=== PATIENT | female | born 1990 | race Caucasian/White ===

== ENCOUNTER → 2017-11-05 | Outpatient (CLI) | payer BC ==
[2017-11-05 10:13] LABS: HEMATOCRIT 27.9 % (36.0-47.0); HEMOGLOBIN 9.7 g/dl (12.0-15.5); MEAN CORPUSCULAR HEMOGLOBIN 31.2 pg (27.0-33.0); MEAN CORPUSCULAR HGB CONC 34.8 g/dl (32.0-36.5); MEAN CORPUSCULAR VOLUME 89.7 fl (80.0-96.0); PLATELET COUNT, AUTOMATED 381 10^3/uL (150-450); RED BLOOD COUNT 3.11 10^6/uL (4.00-5.40); RED CELL DISTRIBUTION WIDTH 11.2 % (11.5-14.5); WHITE BLOOD COUNT 6.4 10^3/uL (4.0-10.0)
[2017-11-05 10:17] LABS: AMORPHOUS SEDIMENT SMALL (NEGATIVE); APPEARANCE, URINE CLOUDY (CLEAR); BACTERIA, URINE AUTO 3+ (NEGATIVE); BILIRUBIN, URINE AUTO NEGATIVE (NEGATIVE); BLOOD, URINE BLOOD NEGATIVE (NEGATIVE); COLOR, URINE YELLOW (YELLOW); GLUCOSE, URINE (UA) AUTO 3+ mg/dL (NEGATIVE); KETONE, URINE AUTO NEGATIVE (NEGATIVE); LEUKOCYTE ESTERASE, URINE AUTO 3+ (NEGATIVE); NITRITE, URINE AUTO POSITIVE (NEGATIVE); PROTEIN, URINE AUTO NEGATIVE (NEGATIVE); RBC, URINE AUTO 67 /HPF (0-3); SPECIFIC GRAVITY URINE AUTO 1.012 (1.002-1.035); SQUAMOUS EPITHELIAL CELL UR AU 0 /HPF (0-6); UROBILINOGEN, URINE AUTO 0.2 mg/dL (0.0-2.0); WBC, URINE AUTO 147 /HPF (0-3)
[2017-11-05 10:39] LABS: CONTROL LINE HCG INT CTR LINE PRESENT; HCG, SERUM QUALITATIVE NEGATIVE (NEGATIVE)
[2017-11-05 10:43] LABS: ALBUMIN 3.5 GM/DL (3.2-5.2); ALBUMIN/GLOBULIN RATIO 1.09 (1.00-1.93); ALKALINE PHOSPHATASE 80 U/L (45-117); ALT/SGPT 83 U/L (12-78); AMYLASE 118 U/L (25-115); ANION GAP 5 MEQ/L (8-16); AST/SGOT 26 U/L (7-37); BILIRUBIN,TOTAL 0.4 MG/DL (0.2-1.0); BLOOD UREA NITROGEN 34 MG/DL (7-18); CALCIUM LEVEL 10.4 MG/DL (8.5-10.1); CARBON DIOXIDE LEVEL 37 MEQ/L (21-32); CHLORIDE LEVEL 92 MEQ/L (98-107); CHOLESTEROL LEVEL 185 MG/DL (<200); CREATININE FOR GFR 1.99 MG/DL (0.55-1.30); FREE T4 1.08 NG/DL (0.76-1.46); GLUCOSE, FASTING 298 MG/DL (70-100); HDL CHOLESTEROL 68 MG/DL (>40); MAGNESIUM LEVEL 1.8 MG/DL (1.8-2.4); NON-HDL-C 117 MG/DL; PHOSPHORUS LEVEL 5.2 MG/DL (2.5-4.9); POTASSIUM SERUM 4.4 MEQ/L (3.5-5.1); SODIUM LEVEL 134 MEQ/L (136-145); TOTAL PROTEIN 6.7 GM/DL (6.4-8.2); TRIGLYCERIDES LEVEL 115 MG/DL (<150)
[2017-11-05 10:53] LABS: TOTAL 25(OH) VITAMIN D 28.6 NG/ML (30.0-100.0)
[2017-11-05 10:55] LABS: FREE T3 2.1 PG/ML (2.2-4.0)
[2017-11-11 09:11] LABS: SUMMARY SEE SEPARATE REPORT
== END ==
LOC: M LAB 09:31
DX: E86.0 Dehydration (principal)
CPT/HCPCS: 93005

== ENCOUNTER → 2018-01-17 | Outpatient (REF) | payer OTHER ==
[2018-01-17 12:02] LABS: HEMATOCRIT 26.4 % (36.0-47.0); HEMOGLOBIN 9.1 g/dl (12.0-15.5); MEAN CORPUSCULAR HEMOGLOBIN 31.9 pg (27.0-33.0); MEAN CORPUSCULAR HGB CONC 34.5 g/dl (32.0-36.5); MEAN CORPUSCULAR VOLUME 92.6 fl (80.0-96.0); PLATELET COUNT, AUTOMATED 406 10^3/uL (150-450); RED BLOOD COUNT 2.85 10^6/uL (4.00-5.40); RED CELL DISTRIBUTION WIDTH 12.4 % (11.5-14.5)
[2018-01-17 13:05] LABS: ALBUMIN 3.6 GM/DL (3.2-5.2); ALBUMIN/GLOBULIN RATIO 1.06 (1.00-1.93); ALKALINE PHOSPHATASE 83 U/L (45-117); ALT/SGPT 54 U/L (12-78); ANION GAP 10 MEQ/L (8-16); AST/SGOT 26 U/L (7-37); BILIRUBIN,TOTAL 0.3 MG/DL (0.2-1.0); BLOOD UREA NITROGEN 21 MG/DL (7-18); CALCIUM LEVEL 9.1 MG/DL (8.5-10.1); CARBON DIOXIDE LEVEL 33 MEQ/L (21-32); CHLORIDE LEVEL 93 MEQ/L (98-107); CREATININE FOR GFR 2.22 MG/DL (0.55-1.30); FERRITIN 47 NG/ML (8-252); GLOMERULAR FILTRATION RATE 28.2 (>60); GLUCOSE, FASTING 192 MG/DL (70-100); IRON (FE) 28 UG/DL (50-170); PERCENT SATURATION 9.2 % (13.2-45.0); POTASSIUM SERUM 4.7 MEQ/L (3.5-5.1); RHEUMATOID FACTOR QUANT 37.1 IU/ML (<15.0); SODIUM LEVEL 136 MEQ/L (136-145); TOTAL IRON BINDING CAPACITY 303 UG/DL (250-450)
[2018-01-17 13:15] LABS: CREATININE, URINE 44.2 MG/DL; MALB URINE SIEMENS 32.5 MG/L
[2018-01-17 13:18] LABS: MAU/CREAT RATIO 73.5 MCG/MG (0.0-30.0)
[2018-01-17 14:27] LABS: ESTIMATED AVERAGE GLUCOSE 352 MG/DL (60-110); HEMOGLOBIN A1c 13.9 %
[2018-01-18 15:36] LABS: ANTINUCLEAR ANTIBODIES DIRECT Negative (Negative)
== END ==
LOC: M SFHCPLAZ 09:39
DX: M06.9 Rheumatoid arthritis, unspecified (principal); D64.9 Anemia, unspecified; E10.65 Type 1 diabetes mellitus with hyperglycemia

== ENCOUNTER → 2018-02-03 | Outpatient (CLI) | payer OTHER | LOC: M RAD 09:56 | DX: N18.4 Chronic kidney disease, stage 4 (severe) (principal) | CPT/HCPCS: 76775 ==

== ENCOUNTER → 2018-02-21 | Outpatient (REF) | payer OTHER ==
[2018-02-21 15:38] LABS: ANION GAP 10 MEQ/L (8-16); BLOOD UREA NITROGEN 22 MG/DL (7-18); CALCIUM LEVEL 10.2 MG/DL (8.5-10.1); CARBON DIOXIDE LEVEL 35 MEQ/L (21-32); CHLORIDE LEVEL 92 MEQ/L (98-107); CREATININE FOR GFR 2.56 MG/DL (0.55-1.30); GLOMERULAR FILTRATION RATE 23.9 (>60); GLUCOSE, FASTING 267 MG/DL (70-100); POTASSIUM SERUM 4.1 MEQ/L (3.5-5.1); SODIUM LEVEL 137 MEQ/L (136-145)
[2018-02-23 00:06] LABS: DEAMIDATED GLIADIN ABS, IgA 4 units (0-19); DEAMIDATED GLIADIN ABS, IgG 2 units (0-19); ENDOMYSIAL ANTIBODY IgA Negative (Negative); IMMUNOGLOBULIN A 200 mg/dL (87-352); t-TRANSGLUTAMINASE(tTG) IgA <2 U/mL (0-3); t-TRANSGLUTAMINASE(tTG) IgG <2 U/mL (0-5)
== END ==
LOC: M SFHCPLAZ 09:52
DX: R19.7 Diarrhea, unspecified (principal)
CPT/HCPCS: 86255

== ENCOUNTER → 2018-02-21 | Outpatient (REF) | payer OTHER | LOC: M LAB REF 02-22 11:02 | DX: R19.7 Diarrhea, unspecified (principal) | CPT/HCPCS: 87507 ==

== ENCOUNTER → 2018-03-05 | Outpatient (REF) | payer OTHER ==
[2018-03-05 17:06] LABS: C REACTIVE PROTEIN QUANTITATIV < 0.30 MG/DL (0.00-0.30)
[2018-03-05 17:23] LABS: ERYTHROCYTE SEDIMENTATION RATE 81 mm/hr (0-20)
[2018-03-07 11:39] LABS: HEPATITIS B CORE ANTIBODY IGG Negative (Negative)
[2018-03-07 12:51] LABS: HEPATITIS C VIRUS ABY INDEX 0.1 INDEX (<0.8)
[2018-03-07 12:51] LABS: HEPATITIS B SURFACE ANTIBODY POSITIVE (POSITIVE); HEPATITIS B SURFACE ANTIGEN NEGATIVE (NEGATIVE)
[2018-03-09 15:38] LABS: G6PD2 2.84 x10E6/uL (3.77-5.28); G6PD3 302 (146-376); QuantiFERON-TB Gold Plus Negative (Negative)
== END ==
LOC: M SFHCLERA 13:44
DX: M05.79 Rheumatoid arthritis with rheumatoid factor of multiple sites without organ or systems involvement (principal); M06.9 Rheumatoid arthritis, unspecified
CPT/HCPCS: 86706

== ENCOUNTER → 2018-03-05 | Outpatient (CLI) | payer OTHER | LOC: M LRY 13:56 | DX: M06.9 Rheumatoid arthritis, unspecified (principal); M85.841 Other specified disorders of bone density and structure, right hand; M85.842 Other specified disorders of bone density and structure, left hand | CPT/HCPCS: 73130 ==

== ENCOUNTER → 2018-05-09 | Outpatient (REF) | payer OTHER ==
[~2018-05-09] MED LIST: ADME100I2 SC; AUGM500T34 PO; BASA100I SC; IRON325T7 PO; MULTCAP PO; RANI150T PO; SULF500T2 PO; TYLE325T5 PO
[2018-05-09 18:05] LABS: BASO # 0.1 10^3/uL (0.0-0.2); BASO % 0.9 % (0.0-1.0); EOS # 0.4 10^3/uL (0.0-0.50); EOS % 5.7 % (0.0-3.0); HEMATOCRIT 25.2 % (36.0-47.0); HEMOGLOBIN 8.7 g/dl (12.0-15.5); LYMPH # 2.6 10^3/uL (1.5-6.5); LYMPH % 36.9 % (24.0-44.0); MEAN CORPUSCULAR HEMOGLOBIN 31.3 pg (27.0-33.0); MEAN CORPUSCULAR HGB CONC 34.5 g/dl (32.0-36.5); MEAN CORPUSCULAR VOLUME 90.6 fl (80.0-96.0); MONO # 0.5 10^3/uL (0.0-0.8); NEUTROPHILS # 3.5 10^3/uL (1.8-7.7); NEUTROPHILS % 49.2 % (36.0-66.0); PLATELET COUNT, AUTOMATED 488 10^3/uL (150-450); RED BLOOD COUNT 2.78 10^6/uL (4.00-5.40)
[2018-05-09 18:07] LABS: HCG, SERUM QUALITATIVE NEGATIVE (NEGATIVE)
[2018-05-09 18:15] LABS: ALBUMIN 3.7 GM/DL (3.2-5.2); ALT/SGPT 39 U/L (12-78); BILIRUBIN,TOTAL 0.3 MG/DL (0.2-1.0); BLOOD UREA NITROGEN 22 MG/DL (7-18); C REACTIVE PROTEIN QUANTITATIV < 0.30 MG/DL (0.00-0.30); CALCIUM LEVEL 9.3 MG/DL (8.5-10.1); CARBON DIOXIDE LEVEL 35 MEQ/L (21-32); CHLORIDE LEVEL 93 MEQ/L (98-107); CHOLESTEROL LEVEL 175 MG/DL (<200); CHOLESTEROL RISK RATIO 2.302 (<5); COMPLEMENT C3 101 MG/DL (90-180); COMPLEMENT C4 24 MG/DL (10-40); CREATININE FOR GFR 3.32 MG/DL (0.55-1.30); GLOMERULAR FILTRATION RATE 17.7 (>60); GLUCOSE, FASTING 162 MG/DL (70-100); HDL CHOLESTEROL 76 MG/DL (>40); IMMUNOGLOBULIN G 888 MG/DL (681-1648); IMMUNOGLOBULIN M 62.6 MG/DL (40-230); LDL CHOLESTEROL 75 MG/DL (<100); MAGNESIUM LEVEL 2.6 MG/DL (1.8-2.4); NON-HDL-C 99 MG/DL; PHOSPHORUS LEVEL 2.8 MG/DL (2.5-4.9); POTASSIUM SERUM 3.7 MEQ/L (3.5-5.1); SODIUM LEVEL 136 MEQ/L (136-145); TOTAL PROTEIN 7.1 GM/DL (6.4-8.2); TRIGLYCERIDES LEVEL 118 MG/DL (<150)
[2018-05-09 18:56] LABS: HIV 1&2 SCREEN CENTAUR NEGATIVE (NEGATIVE)
[2018-05-13 08:06] LABS: CREATININE, URINE 55.9 mg/dL (20.0-300.0); CYCLIC CITRULLINATED PEPTIDE 18 units (0-19); IMMUNOGLOBULIN D <1.34 mg/dL (<14.11)
== END ==
LOC: M SFHCPLAZ 14:55
PROVIDERS: ATTEND Nurse Practitioner Family
DX: F50.2 Bulimia nervosa (principal)

== ENCOUNTER 2018-05-13 10:48 | Observation (INO) | payer OTHER ==
[~2018-05-13] VITALS: Ht 152.4 cm; Wt 47.3 kg
[~2018-05-13 10:48] MED LIST changes: -AUGM500T34 PO; -RANI150T PO; -TYLE325T5 PO
[2018-05-13] MEDS ORDERED: NS 500 ML IV ONE (11:15)
[2018-05-13] MEDS ORDERED: RANI150T PO (11:51)
[2018-05-13 12:00] LABS: BASO # 0.1 10^3/uL (0.0-0.2); BASO % 0.8 % (0.0-1.0); EOS # 0.6 10^3/uL (0.0-0.50); EOS % 6.9 % (0.0-3.0); HEMOGLOBIN 10.1 g/dl (12.0-15.5); LYMPH % 32.5 % (24.0-44.0); MEAN CORPUSCULAR HEMOGLOBIN 30.9 pg (27.0-33.0); MEAN CORPUSCULAR HGB CONC 34.8 g/dl (32.0-36.5); MEAN CORPUSCULAR VOLUME 88.7 fl (80.0-96.0); MONO # 0.6 10^3/uL (0.0-0.8); MONO % 6.4 % (0.0-5.0); NEUTROPHILS # 4.9 10^3/uL (1.8-7.7); NEUTROPHILS % 53.1 % (36.0-66.0); PLATELET COUNT, AUTOMATED 460 10^3/uL (150-450); RED BLOOD COUNT 3.27 10^6/uL (4.00-5.40); WHITE BLOOD COUNT 9.2 10^3/uL (4.0-10.0)
--- NOTE | 2018-05-13 12:19 | REP ---
Portable chest: Single view. History: Renal failure. Comparison study: No comparison study. Findings: EKG monitoring electrodes overlie the chest. Lungs are well inflated and clear. Pleural angles are sharp. Cardiomediastinal silhouette and bony thorax are unremarkable. Impression: No active disease. Electronically Signed by Juliano Brown MD 05/13/2018 12:10 P
[2018-05-13 12:34] LABS: ALT/SGPT 41 U/L (12-78); AMYLASE 114 U/L (25-115); BILIRUBIN,DIRECT 0.1 MG/DL (0.0-0.2); BILIRUBIN,TOTAL 0.3 MG/DL (0.2-1.0); BLOOD UREA NITROGEN 26 MG/DL (7-18); CALCIUM LEVEL 11.2 MG/DL (8.5-10.1); CARBON DIOXIDE LEVEL 33 MEQ/L (21-32); CHLORIDE LEVEL 91 MEQ/L (98-107); CK-MB VALUE MASS < 1.0 NG/ML (<3.6); CPK CREATINE PHOSPHOKINASE 43 U/L (26-192); CREATININE FOR GFR 3.12 MG/DL (0.55-1.30); GLUCOSE, FASTING 347 MG/DL (70-100); LIPASE 139 U/L (73-393); MB/CK RELATIVE INDEX 2.33 (< OR =4); PHOSPHORUS LEVEL 3.1 MG/DL (2.5-4.9); POTASSIUM SERUM 3.8 MEQ/L (3.5-5.1); SODIUM LEVEL 135 MEQ/L (136-145); TOTAL PROTEIN 8.1 GM/DL (6.4-8.2); TROPONIN I < 0.02 NG/ML (< 0.10)
[2018-05-13 12:37] LABS: INR 0.89; PROTHROMBIN TIME 12.1 SECONDS (12.1-14.4)
[2018-05-13 12:38] LABS: PARTIAL THROMBOPLASTIN TIME 25.6 SECONDS (25.4-37.6)
[2018-05-13] MEDS ORDERED: cefTRIAXone SOD 1 GM in D5W MINI-BAG PLUS 50 ML IV ONE (13:15)
[2018-05-13] MEDS ORDERED: TYLE325T5 PO (13:21)
[2018-05-13] MEDS ORDERED: GLUCOSE 4 GM CHEW TABLET PO PRN (14:15)
[2018-05-13] MEDS ORDERED: DEXTROSE 50% 50 ML SYRINGE IV PRN (14:15)
[2018-05-13] MEDS ORDERED: GLUCAGON FOR INJ 1 MG VIAL (J1610) SC PRN (14:15)
[2018-05-13 14:20] LABS: CREATININE,RANDOM URINE 26.1 MG/DL
[2018-05-13 14:30] VITALS: BP 140/97
[2018-05-13] MEDS: NS 1,000 ML IV SCH ×2 (14:47→21:14)
[2018-05-13 14:55] LABS: TOTAL PROTEIN,RANDOM URINE 38.8 MG/DL (0.0-12.0)
--- NOTE | 2018-05-13 15:38 | REP ---
Urinary tract sonogram: History: Renal failure. Comparison: Comparison sonography February 03, 2018 showed no abnormality. Findings: Scanning at the level of the urinary bladder shows slight thickening of the bladder wall and some mild cellular debris in the bladder. Renal cortical echogenicity pattern is normal bilaterally and contours are smooth. There is no evidence of hydronephrosis, cyst, mass, or calculus in either kidney. The right kidney measures 12.2 x 5.9 x 4.5 cm. Left renal dimensions are 10.8 x 5.0 x 6.4 cm. Impression: Slight bladder wall thickening. Otherwise negative urinary tract sonography. Electronically Signed by Juliano Brown MD 05/13/2018 01:55 P
--- NOTE | 2018-05-13 17:07 | HPE ---
DATE OF ADMISSION: 05/13/2018 27-year-old female with past medical history of bulimia nervosa, rheumatoid arthritis, type 1 diabetes, chronic kidney disease (CKD) IIIB, who presents to the emergency room from her primary medical doctor's office for abnormal labs, apparently the creatinine was elevated, upon coming to the emergency room (ER) the patient was found to have a creatinine of 3.1, which is above her baseline, she normally runs around 2.2. She is followed by nephrology as an outpatient. He is also incidentally found to have mild hypercalcemia, which she was started on IV hydration, and also a urinary tract infection (UTI), which she does not have any symptoms of. She denies any urgency, frequency, or dysuria. She has no subjective bleeding, fever, aches, or chills. She does have mild generalized abdominal pain, but again no nausea or vomiting, and her bulimic episodes have not changed according to her. She was started on IV Rocephin 1 gram and will be admitted for further management. Again, past medical history of CKD IIIB, history of rheumatoid arthritis, history of type 1 diabetes, history of bulimia nervosa, history of herpes simplex, anemia, vitamin D deficiency. ALLERGIES: No known drug allergies. FAMILY HISTORY: Noncontributory. SOCIAL HISTORY: She denies tobacco or alcohol, but does occasionally smoke marijuana. MEDICATIONS: She takes at home are as follows: - Tylenol as needed - Admelog SoloStar 1 unit/35 carbohydrates - Basaglar KwikPen 12 units subcutaneous daily - multivitamin one tablet orally daily - high potency iron 325 mg orally daily - ranitidine 150 mg orally daily - sulfasalazine 500 mg orally twice daily REVIEW OF SYSTEMS: Negative for all ten major systems except what is mentioned in history of present illness (HPI). VITAL SIGNS: Blood pressure is 134/97, pulse 97, temperature 98.4, oxygen saturation 94% on room air. HEAD: Atraumatic, normocephalic. NECK: Supple, no jugular venous distention (JVD). LUNGS: Clear to auscultation. S1, S2 audible. ABDOMEN: Soft, positive bowel sounds. NEUROLOGIC EXAMINATION: Patient awake, alert, oriented times three. LABORATORY DATA: WBC 9.2, hemoglobin 10.1, hematocrit 29, platelets are 460,000, sodium 135, potassium 3.8, chloride 91, CO2 33, anion gap is 11, BUN is 26, creatinine is 3.12, lactic acid 3.5, calcium 11.2, magnesium 2.3, troponin is less than 0.02, lipase is 139. Urinalysis is positive for UTI. Renal ultrasound was negative for any obstruction or hydronephrosis. Chest x-ray showed no active disease. IMPRESSION: 1. Acute kidney injury (SAYRA). 2. Urinary tract infection (UTI). 3. Hypercalcemia. PLAN: Patient is to be admitted to medical/surgical floor. I believe the acute kidney injury (SAYRA) is secondary to dehydration. Patient is bulimic and I feel this is likely secondary to that, but we can also say that her urinary tract infection (UTI) may have contributed to her decreased appetite as well. She is also hypercalcemic of unknown etiology and at that level it could also manifest as poor appetite, so I feel this combination is the cause of her acute kidney injury (SAYRA) on chronic kidney disease (CKD). So, we will be hydrating her, and that is at 125 mL/hour. We will monitor BUN and creatinine trends. As far as urinary tract infection (UTI) is concerned, cultures have been sent out, will follow with cultures and sensitivities, and in meantime continue Rocephin at 1 gram daily. As far as the hypercalcemia is concerned, will send intact PTH, 25-hydroxyvitamin D levels, and 1,25-dihydroxyvitamin D levels, hydrate her, and follow her calcium trends. Nephrology also has been consulted, will be awaiting their recommendations.
--- NOTE | 2018-05-13 20:06 | ECGEPIP ---
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
[2018-05-13] MEDS ORDERED: HumaLOG INSULIN (NovoLOG) PER UNIT SC SCH (21:00)
[2018-05-13] MEDS: sulfaSALAzine 500 MG TABEC PO SCH (21:14)
[2018-05-13 22:00] VITALS: BP 135/91
[2018-05-13 22:35] LABS: CALCIUM LEVEL 9.1 MG/DL (8.5-10.1); CREATININE FOR GFR 2.65 MG/DL (0.55-1.30); PHOSPHORUS LEVEL 2.6 MG/DL (2.5-4.9); POTASSIUM SERUM 3.5 MEQ/L (3.5-5.1)
[2018-05-13] MEDS: ACETAMINOPHEN TAB 650MG DOSE (2X325MG) PO PRN (23:20)
[2018-05-14] MEDS: NS 1,000 ML IV SCH ×2 (04:55→16:32)
[2018-05-14 06:00] VITALS: BP 125/83
[2018-05-14 06:11] LABS: BASO % 0.6 % (0.0-1.0); EOS # 0.5 10^3/uL (0.0-0.50); EOS % 7.9 % (0.0-3.0); HEMATOCRIT 22.2 % (36.0-47.0); LYMPH # 2.7 10^3/uL (1.5-6.5); LYMPH % 43.2 % (24.0-44.0); MEAN CORPUSCULAR HGB CONC 33.8 g/dl (32.0-36.5); MEAN CORPUSCULAR VOLUME 91.7 fl (80.0-96.0); MONO # 0.4 10^3/uL (0.0-0.8); MONO % 5.7 % (0.0-5.0); NEUTROPHILS # 2.6 10^3/uL (1.8-7.7); NEUTROPHILS % 42.4 % (36.0-66.0); RED BLOOD COUNT 2.42 10^6/uL (4.00-5.40); WHITE BLOOD COUNT 6.2 10^3/uL (4.0-10.0)
[2018-05-14 06:21] LABS: HEMOGLOBIN 7.5 g/dl (12.0-15.5); PLATELET COUNT, AUTOMATED 324 10^3/uL (150-450)
--- NOTE | 2018-05-14 08:08 | CR ---
DATE OF CONSULTATION: 05/13/2018 REQUESTING PHYSICIAN: Dr. Alondra Vanegas. CONSULTING PHYSICIAN: Dr. Cotto. REASON FOR CONSULTATION: Management of acute renal failure. CHIEF COMPLAINT: Patient was sent from the primary care office because of abnormal labs. HISTORY OF PRESENT ILLNESS: Rowena Shah is a 27-year-old female with past medical history of chronic kidney disease stage III with past baseline creatinine of around 2.2, history of anorexia nervosa and bulimia, rheumatoid arthritis, diabetes mellitus type 1. She follows up with Dr. Garvey as outpatient in nephrology clinic. She recently got her labs done at primary care office. She was found to have acute renal failure with creatinine more than 3. She was sent to the emergency room today for further evaluation and management. Labs done in the emergency room showed she had a creatinine of 3.1. She was also in metabolic alkalosis. Patient was admitted under the hospitalist service. Nephrology service was called for further help in the management of acute renal failure. I saw and evaluated the patient today evening at the bedside. Her grandfather was present at the bedside and patient reports that because of bulimia, she purges everyday. She denies using laxatives at this point. PAST MEDICAL HISTORY: Chronic kidney disease stage III. History of rheumatoid arthritis, takes sulfasalazine. Diabetes mellitus type 1 since 17 years of age. History of anemia and anorexia nervosa and bulimia. PAST SURGICAL HISTORY: She denies any surgery but she had a colonoscopy done in the past because of diarrhea. ALLERGIES: No known drug allergies. FAMILY HISTORY: No significant family history of end stage renal disease requiring hemodialysis. SOCIAL HISTORY: She denies any elicit drug abuse, smoking or alcohol abuse. Patient is living with her grandparents. Her own parents live in [place]. REVIEW OF SYSTEMS: Constitutional: Patient reports feeling weak and tired. Eyes: She denies any blurry vision, double vision. ENT: She denies any dysphagia, odynophagia. Cardiovascular: She denies any chest pain or palpitations. Respiratory: She denies any shortness of breath. GI: She reports anorexia nervosa and bulimia. Genitourinary: She denies any dysuria or hematuria. Musculoskeletal: She denies any muscle aches and pains. Skin: She denies any rashes or ulcers. Endocrine: She reports history of diabetes mellitus type 1. Hematological/oncological: She denies any easy bleeding or bruising. Psych: She reports history of bulimia and anorexia nervosa. All other review of system is negative. PHYSICAL EXAMINATION: General: Patient is awake, alert, oriented times three. Lying in bed. Has a flat affect. Vital signs: Temperature is 98.9 degrees Fahrenheit, blood pressure 135/91, pulse 98, respiratory rate 18, saturating 100% on room air. Head and neck exam: Extraocular muscles intact. Pupils equally round and reactive to light. Mucous membranes are moist. Neck is supple. There is no jugular venous distention. Cardiovascular: S1, S2. Regular rate. No murmur, rubs or gallop. Respiratory: Chest is clear to auscultation bilaterally. Bilateral equal air entry. No rales or rhonchi. Abdomen is soft, positive bowel sounds, nontender, no organomegaly. Musculoskeletal: No clubbing or cyanosis. Pulses are 2+. CORSETS SALESPERSON: No focal deficit. Power is 5/5 in all extremities. Skin: No rashes or ulcers. LAB REVIEW: CBC showed WBC 9.2, hemoglobin 10.1, platelets are 460. Urinalysis showed it was cloudy with 1+ protein, 3+ glucose, 3+ leukocyte esterase, too numerous to count WBCs. Urine random protein is 38. Random creatinine is 26. BMP on arrival showed sodium 135, potassium 3.8, chloride 91, bicarbonate 33, BUN is 26, creatinine is 3.1. Glucose of 347. Lactic acid was 3.5. Repeat lactic acid is 0.8. Calcium is 11.2. Albumin 4. Repeat BMP done in the evening showed sodium 134, potassium 3.5, chloride 95, bicarbonate 33, BUN 22, creatinine 2.6. Calcium 9.1 and phosphorus 2.6. Microbiology: Urine cultures are pending. IMAGING: Renal ultrasound was done. It showed slight bladder wall thickening. Negative urinary tract ultrasound. Right kidney was 12.2 cm. Left kidney was 10.8 cm. HOME MEDICATIONS: Patient's home medications include: - Tylenol as needed - Admelog SoloStar pen according to sliding scale - Basaglar units subcutaneous daily - iron tablet one tablet daily - multivitamin one tablet daily - ranitidine one tablet daily - sulfasalazine 500 mg by mouth twice a day - famotidine CURRENT INPATIENT MEDICATIONS: Patient's inpatient medications include: - ceftriaxone 1 gram IV daily - normal saline 125 mg daily - She was given 500 mL normal saline bolus. - She is on Tylenol as needed. - famotidine 50 mg daily - insulin Levemir 12 units subcutaneous daily and insulin sliding scale - multivitamin one tablet daily - sulfasalazine 500 mg by mouth twice a day ASSESSMENT: 27-year-old female with anorexia nervosa and bulimia, diabetes mellitus type 1, chronic kidney disease stage III at baseline, admitted this time with acute renal failure superimposed on chronic kidney disease, urinary tract infection and hyperglycemia. PLAN: 1. Acute renal failure superimposed on chronic kidney disease stage III most likely secondary to dehydration, volume depletion and urinary tract infection. Patient has already been started on IV fluid hydration. She is making good amount of urine and creatinine is improving. Continue the IV fluid hydration at this point. 2. Urinary tract infection. Patient has already been started on IV ceftriaxone. Cultures are still pending. 3. Metabolic alkalosis. It is most likely secondary to bulimia and dehydration. Continue IV fluid hydration at this point. 4. Hypocalcemia. Calcium level is improving with IV fluid hydration. PTH level is pending. 5. Anemia. Hemoglobin is 10.1. She is already on oral iron tablets. Continue the home dose of oral iron. 6. Diabetes mellitus type 1. Continue insulin sliding scale and long acting insulin. Glucose levels are controlled. 7. Rheumatoid arthritis. Okay to continue sulfasalazine at this point. Thank you for involving me in the case of this patient. I shall be happy to follow the patient along with you tomorrow morning. [facility]
[2018-05-14 08:40] LABS: CALCIUM LEVEL 8.7 MG/DL (8.5-10.1); CREATININE FOR GFR 2.63 MG/DL (0.55-1.30); GLOMERULAR FILTRATION RATE 23.2 (>60); MAGNESIUM LEVEL 2.1 MG/DL (1.8-2.4); PERCENT SATURATION 17.3 % (13.2-45.0); POTASSIUM SERUM 4.4 MEQ/L (3.5-5.1); THYROID STIMULATING HORMONE 0.802 uIU/ML (0.358-3.740)
[2018-05-14] MEDS: HumaLOG INSULIN (NovoLOG) PER UNIT SC SCH ×4 (08:50→17:30)
[2018-05-14] MEDS: LEVEMIR (INSULIN DETEMIR) 1 UNITS/0.01ML SC SCH (08:51)
[2018-05-14] MEDS: MULTIVITAMINS/MINERALS THERAP 1 TAB PO SCH (08:51)
[2018-05-14] MEDS: FAMOTIDINE 20 MG TAB PO SCH (08:51)
[2018-05-14] MEDS: sulfaSALAzine 500 MG TABEC PO SCH ×2 (08:51→20:23)
[2018-05-14] MEDS ORDERED: IRON SUCROSE 25 MG in NS 50 ML IV ONE ×4 (12:00)
[2018-05-14] MEDS ORDERED: HumaLOG INSULIN (NovoLOG) PER UNIT SC ONE ×2 (12:00→14:15)
[2018-05-14] MEDS: ACETAMINOPHEN TAB 650MG DOSE (2X325MG) PO PRN ×2 (12:32→20:25)
[2018-05-14] MEDS ORDERED: NS IV ONE (13:00)
[2018-05-14] MEDS ORDERED: IRON SUCROSE IV ONE (13:00)
[2018-05-14] MEDS ORDERED: cefTRIAXone SOD 1 GM in D5W MINI-BAG PLUS 50 ML IV SCH (13:00)
[2018-05-14 13:17] LABS: HEMATOCRIT 23.8 % (36.0-47.0); MEAN CORPUSCULAR HEMOGLOBIN 30.7 pg (27.0-33.0); MEAN CORPUSCULAR HGB CONC 33.6 g/dl (32.0-36.5); MEAN CORPUSCULAR VOLUME 91.2 fl (80.0-96.0); PLATELET COUNT, AUTOMATED 377 10^3/uL (150-450); RED BLOOD COUNT 2.61 10^6/uL (4.00-5.40); WHITE BLOOD COUNT 6.8 10^3/uL (4.0-10.0)
[2018-05-14 14:00] VITALS: BP 140/90
--- NOTE | 2018-05-14 16:00 | IPN ---
DATE: 05/14/2018 SUBJECTIVE: Patient is seen and examined in the room with her grandfather and grandmother. Patient was frustrated that she needed to come to the hospital and she does not like the situation. According to patient, patient has an appointment with the bulimia clinic in [place] in a few days. OBJECTIVE: VITAL SIGNS: Temperature is 97.5, pulse is 85, respiratory rate 18, blood pressure 125/83, pulse oximetry is 98% in room air. GENERAL: No sign of acute distress. Patient is alert and awake. HEENT: Normocephalic, atraumatic. Extraocular motor grossly intact. CARDIOVASCULAR: Positive S1, S2, regular rate. LUNGS: Clear to auscultation bilaterally. ABDOMEN: Soft, nontender. Bowel sounds present. EXTREMITIES: No edema. LABORATORY DATA: WBC is 6.8, hemoglobin 8, hematocrit 23.8, platelet count is 377. Sodium is 138, potassium 4.4, chloride 101, carbon dioxide 32, BUN 33, creatinine is 2.63, GFR is 23.2, fasting glucose 420, calcium is 8.7, magnesium 2.1, iron is 42, TIBC is 243, ferritin is 52, lactate dehydrogenase 108. ASSESSMENT AND PLAN: 1. Acute renal failure, on chronic kidney disease (CKD) stage III. Clinically, patient shows some signs of dehydration. Patient also has a urinary tract infection. Patient is on IV support. Followup with urine culture. Nephrology consulted, appreciate their assistance. 2. Type 1 diabetes. A long discussion occurred with patient regarding her insulin regimen. Patient is currently on consistent-carbohydrate diet. Patient will be on Levemir 12 units before meals and at bedtime. We are supplementing patient's regimen. Per patient, patient years ago was under better control. We will also try to contact [facility] regarding patient's home insulin recommendations. 3. Rheumatoid arthritis. Patient is on sulfasalazine. 4. History of bulimia nervosa. Patient has an appointment with a bulimia clinic in a few days in [place]. 5. Anemia. We will continue with anemia workup. Followup with stool occult. Patient denies any source of active bleeding. 6. Urinary tract infection. Followup with urine culture, on IV antibiotics. 7. Deep vein thrombosis (DVT) prophylaxis. On thromboembolic-deterrent stockings (TEDS), compression.
[2018-05-14 17:36] LABS: FOLATE 11.2 NG/ML (>5.4)
[2018-05-14] MEDS ORDERED: HumaLOG INSULIN (NovoLOG) PER UNIT SC SCH (21:00)
[2018-05-14 22:00] VITALS: BP 138/72
[2018-05-15] MEDS: ACETAMINOPHEN TAB 650MG DOSE (2X325MG) PO PRN ×2 (03:12→09:23)
[2018-05-15 06:00] VITALS: BP 135/92
[2018-05-15 06:43] LABS: HEMATOCRIT 20.3 % (36.0-47.0); MEAN CORPUSCULAR HEMOGLOBIN 31.3 pg (27.0-33.0); MEAN CORPUSCULAR HGB CONC 34.5 g/dl (32.0-36.5); MEAN CORPUSCULAR VOLUME 90.6 fl (80.0-96.0); PLATELET COUNT, AUTOMATED 307 10^3/uL (150-450); RED BLOOD COUNT 2.24 10^6/uL (4.00-5.40)
[2018-05-15 07:11] LABS: CALCIUM LEVEL 8.5 MG/DL (8.5-10.1); CREATININE FOR GFR 2.3 MG/DL (0.55-1.30); GLOMERULAR FILTRATION RATE 27.1 (>60); MAGNESIUM LEVEL 2.2 MG/DL (1.8-2.4); POTASSIUM SERUM 4.3 MEQ/L (3.5-5.1)
[2018-05-15] MEDS: HumaLOG INSULIN (NovoLOG) PER UNIT SC SCH ×2 (07:40→12:29)
[2018-05-15] MEDS: FAMOTIDINE 20 MG TAB PO SCH (09:00)
[2018-05-15] MEDS: MULTIVITAMINS/MINERALS THERAP 1 TAB PO SCH (09:00)
[2018-05-15] MEDS: sulfaSALAzine 500 MG TABEC PO SCH (09:00)
[2018-05-15] MEDS ORDERED: IRON SUCROSE 100MG 5ML VIAL (J1756 PER 1MG) IV SCH (09:00)
[2018-05-15] MEDS: LEVEMIR (INSULIN DETEMIR) 1 UNITS/0.01ML SC SCH (09:00)
[2018-05-15] MEDS ORDERED: AUGMENTIN 500 MG TAB PO SCH (09:00)
--- NOTE | 2018-05-15 09:41 | IPN ---
DATE OF SERVICE: 05/14/2018 SUBJECTIVE: The patient was seen and examined at the bedside today morning. The patient is afebrile, hemodynamically stable. She reports that she is feeling better today as compared with yesterday. She continues to be on intravenous (IV) fluids. Renal function is improving. Creatinine is down to 2.6 today. She has a good urine output. Her hemoglobin has dropped to 7.7. Her grandparents were also present at the bedside. OBJECTIVE: Vital signs: Temperature is 97.5 degrees Fahrenheit, blood pressure 125/83, pulse is 85, respiratory rate of 18, saturating 98% on room air. Intake and output: Urine output recorded is 1.2 liters yesterday, 3.7 liters so far today since overnight. Weight in the bed scale is 47.3 kg. PHYSICAL EXAMINATION: General: The patient is awake, alert, oriented times three. Lying in bed. Weak and cachectic. No apparent distress. Head and neck examination: Extraocular muscles intact. Pupils equally round and reactive to light. Mucous membranes are moist. Neck is supple. There is no jugular venous distention (JVD). Cardiovascular: S1, S2. Regular rate. No murmur, rub, and gallop. Respiratory: Chest is clear to auscultation bilaterally. Bilateral equal air entry. No rales or rhonchi. Abdomen is soft, positive bowel sounds, nontender, no organomegaly. Musculoskeletal: No clubbing or cyanosis. The patient has multiple deformities in the fingers secondary to rheumatoid arthritis.. Central nervous system (PLASMA SPECIALIST): No focal deficit. Power is 5/5 in all extremities. Skin: No rashes or ulcers. LABORATORY REVIEW: Complete blood count (CBC) showed a WBC of 6.8, a repeat hemoglobin is 8.1, hemoglobin early in the morning was 7.5, platelets are 377. Basic metabolic profile (BMP) showed sodium 138, potassium 4.4, chloride 101, bicarbonate 32, BUN 23, creatinine is 2.6, glucose level 420, calcium 8.7, iron is 42, transferrin saturation 17.3, ferritin is 52. MICROBIOLOGY: Cultures are negative so far. CURRENT INPATIENT MEDICATIONS: The patient's medications were all reviewed by me. She continues to be on intravenous (IV) ceftriaxone. I have started the patient on IV Venofer because of iron deficiency. I have decreased the IV fluid rate of this patient to 60 mL/h. No other change in the medications today as compared with yesterday. ASSESSMENT AND PLAN: 1. Acute kidney injury superimposed on chronic kidney disease stage III. It was secondary to dehydration and volume depletion. The patient is on IV fluid hydration. Her urine output is improving. Creatinine is trending down. Electrolytes are improving. The patient has a body mass index (BMI) of 20.4, and she weighs only 47 kg. I have decreased the IV fluid rate to 60 mL only. Continue normal saline at 60 mL/h. 2. Urinary tract infection. Continue current dose of ceftriaxone. Cultures are still pending. 3. Iron-deficiency anemia. I have started the patient on IV Venofer 400 mg IV daily times two doses. 4. Hyponatremia. The patient had hypovolemic hyponatremia. Sodium is nicely improved to 138 today. 5. Metabolic alkalosis. It was secondary to dehydration, volume depletion, and bulimia nervosa, and purging. Bicarbonate level is improving with IV fluid hydration. 6. Diabetes mellitus type 1. The patient is currently on Levemir and insulin sliding scale. Dose adjustment is as per primary team. 7. Rheumatoid arthritis. Continue current dose of sulfasalazine at this point.
[2018-05-15] MEDS ORDERED: IRON SUCROSE 200 MG in NS 200 ML IV ONE (12:00)
[2018-05-15] MEDS ORDERED: AUGMENTIN 875 MG TAB PO SCH (12:30)
[2018-05-15] MEDS ORDERED: AUGM500T34 PO (12:34)
[2018-05-15 14:00] VITALS: BP 136/93
--- NOTE | 2018-05-15 21:20 | IPN ---
DATE: 05/15/2018 SUBJECTIVE: Patient was seen and examined at the bedside. She is afebrile, hemodynamically stable. Her renal function continues to improve. Creatinine is down to 2.3. Her hemoglobin has dropped to 7 today. She has a very good urine output, and patient today is requesting to go back home now. OBJECTIVE: Vital signs: Temperature is 98.1 degrees Fahrenheit, blood pressure 135/92, pulse is 61, respiratory rate of 18, saturating 97% on room air. Intake and output: Urine output recorded is 3.7 liters yesterday, 1.8 liters so far today. Weight in the bed scale is not available. PHYSICAL EXAMINATION: GENERAL: Patient is awake, alert, oriented times three, sitting up in the bed. No apparent distress. HEAD AND NECK: Patient appears pale and weak. Otherwise mucous membranes are moist. Neck is supple. There is no jugular venous distention (JVD). CARDIOVASCULAR: S1, S2, regular rate. No murmur, rub, or gallop. RESPIRATORY: Chest is clear to auscultation bilaterally. Bilateral equal air entry. No rales or rhonchi. ABDOMEN: Soft. Positive bowel sounds. Nontender. No organomegaly. MUSCULOSKELETAL: No clubbing or cyanosis. Pulses are 2+. She has deformity of the hand, fingers because of rheumatoid arthritis. CENTRAL NERVOUS SYSTEM: No focal deficit. Power is 5/5 in all extremities. SKIN: No rashes or ulcers. LABORATORY REVIEW: CBC showed a WBC 6, hemoglobin 7, platelets are 307. A BMP showed sodium 141, potassium 4.3, chloride 108, bicarbonate 29, BUN 18, creatinine is 2.3, calcium 8.5, magnesium is 2.2. Microbiology: Urine culture done on admission is growing Enterococcus faecalis. CURRENT INPATIENT MEDICATIONS: Patient's medications were all reviewed by me. She continues to be intravenous (IV) ceftriaxone. IV fluids have been stopped today. No other change in the medications today as compared with yesterday. ASSESSMENT AND PLAN: 1. Acute kidney injury superimposed on chronic kidney disease, stage III. It was secondary to volume depletion and dehydration. She got IV fluid hydration. Her creatinine is improving back to her baseline. Her baseline creatinine is around 2.2. 2. Urinary tract infection. She is growing Enterococcus faecalis. She is currently on ceftriaxone. She should be discharged home on oral quinolone. 3. Iron deficiency anemia. Her hemoglobin has further dropped to 7. She got IV Venofer, but she is going to get packed red blood cells (PRBC) transfusion before she goes home. 4. Diabetes mellitus, type 1. Patient is on insulin sliding scale and Levemir. She can restart her home dose according to [facility] when she goes home. 5. Rheumatoid arthritis. Okay to continue current dose of sulfasalazine. DISPOSITION: It is okay to discharge the patient from nephrology standpoint after blood transfusion today.
--- NOTE | 2018-05-17 00:23 | DSES ---
DATE OF ADMISSION: 05/13/2018 DATE OF DISCHARGE: 05/15/2018 CONSULTANTS: Nephrology. PRIMARY CARE PROVIDER: Dorothy Miller DISCHARGE DIAGNOSES: 1. Acute renal failure on chronic kidney disease stage III. 2. Type 1 diabetes. 3. Rheumatoid arthritis. 4. History of bulimia nervosa. 5. Anemia. 6. Urinary tract infection. HOSPITALIZATION COURSE: The patient is a 27-year-old female, sent into [facility] from primary care provider on 05/13/2018 for abnormal labs. In the emergency room, the patient was found to have acute renal failure on chronic kidney disease stage III. Patient admitted under the hospitalist service, nephrology consulted. The patient was found to have a urinary tract infection, and the patient was started on empiric antibiotics while waiting for the cultures. Intravenous (IV) support was initiated for patient's acute renal failure. Kidney function continued to improve. Patient was found to have significant iron deficient anemia, iron supplement ordered, blood consent obtained. Patient was given one packed red blood transfusion. On 05/15/2018, the patient was determined medically stable for discharge with the recommendation to followup with her primary care provider in 1 week. The patient also should followup with the bulimia clinic in [place] at the scheduled time. The patient was also recommended to finish a course of antibiotics for her urinary tract infection (UTI). OBJECTIVE: Vital Signs: Temperature is 98.9, pulse is 89, respirations 17, blood pressure 136/93, pulse oximetry 93% in room air. LABORATORY DATA: On the day of discharge, WBC is 6, hemoglobin 7, hematocrit 20.3, platelet count 307. Sodium is 141, potassium 4.3, chloride 108, carbon dioxide 29, BUN 18, creatinine 2.3, GFR is 27.1, fasting glucose is 78, calcium 8.5, magnesium 2.2, iron is 42, TIBC is 243, ferritin 52. Microbiology: Blood culture shows negative after 72 hours times two sets. Urine culture is positive for Enterococcus faecalis. IMAGING STUDIES: Chest x-ray on 05/13/2018 demonstrated no acute disease. Renal ultrasound on 05/13/2018 demonstrated slight bladder wall thickening. Otherwise negative urinary tract sonography. DISCHARGE MEDICATIONS: - Augmentin 500-125 one tablet by mouth twice a day for 5 days - Tylenol 650 mg by mouth every 6 hours as needed - SoloStar one dose subcu per sliding scale - Basaglar 12 units subcu daily - iron high potency 325 mg by mouth daily - multivitamin one tablet by mouth daily - ranitidine one tablet by mouth daily - sulfasalazine 500 mg by mouth twice a day DISCHARGE INSTRUCTIONS: Discontinue line. Discharge home. Activity as tolerated. Diet as tolerated. Patient was recommended to finish a course of oral antibiotics for UTI. Patient recommended to followup with primary care provider in 1 week. Patient also recommended followup with the bulimia clinic in [place]. DISCHARGE CONDITION: Fair. DISCHARGE TIME: Greater than 30 minutes.
== END 2018-05-15 16:00 | disposition home or self-care (01) ==
LOC: M ED 10:48 → M ED INP 14:11 → M MS5PR 15:19
PROVIDERS: ADMIT Internal Medicine; ATTEND Internal Medicine
DX: N17.9 Acute kidney failure, unspecified (principal); E83.52 Hypercalcemia; N18.3 Chronic kidney disease, stage 3 (moderate); E86.0 Dehydration; E10.9 Type 1 diabetes mellitus without complications; M06.9 Rheumatoid arthritis, unspecified; Z86.59 Personal history of other mental and behavioral disorders; N39.0 Urinary tract infection, site not specified; Z79.899 Other long term (current) drug therapy; D50.9 Iron deficiency anemia, unspecified
CPT/HCPCS: 36415; 36430; 71045; 76775; 80048; 80069; 81001; 82150; 82550; 82553; 82570; 82607; 82728; 82746; 83010; 83550; 83605; 83615; 83690; 83735; 84100; 84156; 84443; 85025; 85027; 85046; 85610; 85730; 86850; 86900; 86901; 86920; 87040; 87088; 87186; 93005; 93041; 96361; 96374; 96376; 99285; J0696; J1756; P9016

== ENCOUNTER → 2018-05-22 | Outpatient (REF) | payer OTHER ==
[~2018-05-22] MED LIST changes: +AUGM500T34 PO; +RANI150T PO; +TYLE325T5 PO
[2018-05-22 18:14] LABS: CALCIUM LEVEL 9.1 MG/DL (8.5-10.1); CREATININE FOR GFR 2.69 MG/DL (0.55-1.30); GLOMERULAR FILTRATION RATE 22.6 (>60); POTASSIUM SERUM 4.4 MEQ/L (3.5-5.1)
[2018-05-22 18:17] LABS: HEMATOCRIT 29.7 % (36.0-47.0); HEMOGLOBIN 9.8 g/dl (12.0-15.5); MEAN CORPUSCULAR HEMOGLOBIN 30.9 pg (27.0-33.0); MEAN CORPUSCULAR VOLUME 93.7 fl (80.0-96.0); PLATELET COUNT, AUTOMATED 448 10^3/uL (150-450); RED BLOOD COUNT 3.17 10^6/uL (4.00-5.40)
[2018-05-23 08:17] LABS: HCG, SERUM QUALITATIVE NEGATIVE (NEGATIVE)
[2018-05-23 08:38] LABS: ALBUMIN 3.7 GM/DL (3.2-5.2); ALT/SGPT 62 U/L (12-78); BILIRUBIN,TOTAL 0.3 MG/DL (0.2-1.0); BLOOD UREA NITROGEN 21 MG/DL (7-18); CALCIUM LEVEL 9.2 MG/DL (8.5-10.1); CARBON DIOXIDE LEVEL 30 MEQ/L (21-32); CHLORIDE LEVEL 103 MEQ/L (98-107); CREATININE FOR GFR 2.75 MG/DL (0.55-1.30); GLUCOSE, FASTING 249 MG/DL (70-100); MAGNESIUM LEVEL 2.3 MG/DL (1.8-2.4); PHOSPHORUS LEVEL 3.7 MG/DL (2.5-4.9); POTASSIUM SERUM 4.4 MEQ/L (3.5-5.1); SODIUM LEVEL 141 MEQ/L (136-145)
== END ==
LOC: M SFHCPLAZ 15:37
PROVIDERS: ATTEND Nurse Practitioner Family
DX: D50.9 Iron deficiency anemia, unspecified (principal)

== ENCOUNTER → 2018-05-28 | Outpatient (REF) | payer OTHER ==
[2018-05-28 15:55] LABS: BASO # 0.1 10^3/uL (0.0-0.2); BASO % 0.8 % (0.0-1.0); EOS # 0.4 10^3/uL (0.0-0.50); EOS % 4.5 % (0.0-3.0); HEMATOCRIT 29.8 % (36.0-47.0); HEMOGLOBIN 10.1 g/dl (12.0-15.5); LYMPH # 2.6 10^3/uL (1.5-6.5); LYMPH % 33.4 % (24.0-44.0); MEAN CORPUSCULAR HEMOGLOBIN 31.2 pg (27.0-33.0); MEAN CORPUSCULAR HGB CONC 33.9 g/dl (32.0-36.5); MONO # 0.5 10^3/uL (0.0-0.8); MONO % 6.3 % (0.0-5.0); NEUTROPHILS # 4.2 10^3/uL (1.8-7.7); NEUTROPHILS % 54.9 % (36.0-66.0); PLATELET COUNT, AUTOMATED 401 10^3/uL (150-450); RED BLOOD COUNT 3.24 10^6/uL (4.00-5.40); WHITE BLOOD COUNT 7.7 10^3/uL (4.0-10.0)
[2018-05-28 16:06] LABS: APPEARANCE, URINE CLEAR (CLEAR); BACTERIA, URINE AUTO NEGATIVE (NEGATIVE); BILIRUBIN, URINE AUTO NEGATIVE (NEGATIVE); BLOOD, URINE BLOOD NEGATIVE (NEGATIVE); COLOR, URINE YELLOW (YELLOW); GLUCOSE, URINE (UA) AUTO 2+ mg/dL (NEGATIVE); KETONE, URINE AUTO NEGATIVE (NEGATIVE); LEUKOCYTE ESTERASE, URINE AUTO NEGATIVE (NEGATIVE); NITRITE, URINE AUTO NEGATIVE (NEGATIVE); PROTEIN, URINE AUTO 1+ mg/dL (NEGATIVE); RBC, URINE AUTO 2 /HPF (0-3); SPECIFIC GRAVITY URINE AUTO 1.015 (1.002-1.035); SQUAMOUS EPITHELIAL CELL UR AU 1 /HPF (0-6); UROBILINOGEN, URINE AUTO 0.2 mg/dL (0.0-2.0); WBC, URINE AUTO 2 /HPF (0-3)
== END ==
LOC: M SFHCPLAZ 11:49
PROVIDERS: ATTEND Nurse Practitioner Family
DX: F50.2 Bulimia nervosa (principal)

== ENCOUNTER → 2018-08-07 | Outpatient (REF) | payer OTHER ==
[~2018-08-07] MED LIST changes: +FERR325T82 PO; -IRON325T7 PO
[2018-08-07 13:19] LABS: HEMATOCRIT 27.9 % (36.0-47.0); HEMOGLOBIN 9.2 g/dl (12.0-15.5); MEAN CORPUSCULAR HEMOGLOBIN 29.1 pg (27.0-33.0); MEAN CORPUSCULAR VOLUME 88.3 fl (80.0-96.0); PLATELET COUNT, AUTOMATED 328 10^3/uL (150-450); RED BLOOD COUNT 3.16 10^6/uL (4.00-5.40); WHITE BLOOD COUNT 5.3 10^3/uL (4.0-10.0)
[2018-08-07 13:41] LABS: ALBUMIN 3.9 GM/DL (3.2-5.2); BILIRUBIN,TOTAL 0.3 MG/DL (0.2-1.0); CALCIUM LEVEL 9.5 MG/DL (8.5-10.1); CREATININE FOR GFR 3.8 MG/DL (0.55-1.30); FREE T4 1.06 NG/DL (0.76-1.46); GLOMERULAR FILTRATION RATE 15.1 (>60); POTASSIUM SERUM 3.7 MEQ/L (3.5-5.1); THYROID STIMULATING HORMONE 1.76 uIU/ML (0.358-3.740); TOTAL PROTEIN 6.9 GM/DL (6.4-8.2)
[2018-08-07 13:42] LABS: TOTAL 25(OH) VITAMIN D 33.8 NG/ML (30.0-100.0)
== END ==
LOC: M SFHCPLAZ 10:43
PROVIDERS: ATTEND Nurse Practitioner Family
DX: E03.9 Hypothyroidism, unspecified (principal); N18.3 Chronic kidney disease, stage 3 (moderate); D50.9 Iron deficiency anemia, unspecified

== ENCOUNTER → 2018-08-19 | Outpatient (CLI) | payer OTHER ==
--- NOTE | 2018-08-19 14:46 | REP ---
BILATERAL UPPER EXTREMITY DUPLEX DOPPLER ARTERIAL AND VENOUS ULTRASOUND: Bilateral upper extremity duplex Doppler arterial and venous ultrasound performed for mapping for AV fistula. No deep vein thrombosis is seen bilaterally. On the right basilic vein measures 3 mm at the upper humerus, 2 mm at the mid humerus, antecubital region and throughout the forearm and 1 mm at the wrist. Median cubital vein measures 4 mm. Right cephalic vein measures 3 mm at the upper humerus, 2 mm at the mid humerus, 3 mm at the antecubital and upper forearm region, and 2 mm at the mid forearm and wrist. Right upper extremity arterial structures demonstrate triphasic waveforms and normal flow velocities. Right axillary artery measures 4 mm, brachial artery 3 mm, radial artery 2 mm and ulnar artery 4 mm. On the left basilic vein measures 4 mm at the upper humerus, 3 mm at the mid humerus and antecubital region, 2 mm throughout the forearm and wrist. Median cubital vein measures 3 mm. Left cephalic vein measures 2 mm at the upper humerus, 1 mm at the mid humerus, antecubital region and upper forearm and 2 mm in the mid forearm and wrist. Left upper extremity arterial structures demonstrate normal flow velocities and triphasic waveforms. Left axillary and brachial arteries measure 3 mm as does the left ulnar artery. Left radial artery measures 2 mm. Electronically Signed by Charlie Farnsworth MD 08/20/2018 10:26 A
== END ==
LOC: M RAD 11:10
PROVIDERS: ATTEND Internal Medicine Nephrology
DX: N18.6 End stage renal disease (principal)

== ENCOUNTER → 2018-12-15 | Outpatient (REF) | payer OTHER | LOC: M SFHCPLAZ 12:51 | PROVIDERS: ATTEND Nurse Practitioner Family | DX: R19.7 Diarrhea, unspecified (principal) ==

== ENCOUNTER → 2018-12-31 | Outpatient (REF) | payer OTHER | LOC: M SFHCPLAZ 18:29 | PROVIDERS: ATTEND Nurse Practitioner Family | DX: Z01.419 Encounter for gynecological examination (general) (routine) without abnormal findings (principal) ==

== ENCOUNTER → 2019-01-02 | Outpatient (REF) | payer OTHER ==
[2019-01-02 16:13] LABS: APPEARANCE, URINE TURBID (CLEAR); BACTERIA, URINE AUTO 2+ (NEGATIVE); BILIRUBIN, URINE AUTO NEGATIVE (NEGATIVE); BLOOD, URINE BLOOD 1+ (NEGATIVE); COLOR, URINE YELLOW (YELLOW); GLUCOSE, URINE (UA) AUTO 3+ mg/dL (NEGATIVE); KETONE, URINE AUTO NEGATIVE (NEGATIVE); LEUKOCYTE ESTERASE, URINE AUTO 3+ (NEGATIVE); NITRITE, URINE AUTO NEGATIVE (NEGATIVE); PROTEIN, URINE AUTO 2+ mg/dL (NEGATIVE); RBC, URINE AUTO 27 /HPF (0-3); SPECIFIC GRAVITY URINE AUTO 1.012 (1.002-1.035); SQUAMOUS EPITHELIAL CELL UR AU 0 /HPF (0-6); UROBILINOGEN, URINE AUTO 0.2 mg/dL (0.0-2.0); WBC, URINE AUTO TNTC /HPF (0-3)
== END ==
LOC: M SFHCPLAZ 13:30
PROVIDERS: ATTEND Nurse Practitioner Family
DX: R39.9 Unspecified symptoms and signs involving the genitourinary system (principal)

== ENCOUNTER → 2019-01-10 | Outpatient (CLI) | payer OTHER ==
--- NOTE | 2019-01-12 06:16 | ECHO ---
DATE OF PROCEDURE: 01/10/2019 DATE OF : 1990 AGE: 28 REFERRING PHYSICIAN: Dr. Fabian Grijalva PATIENT LOCATION: Outpatient REASON FOR THE STUDY: Evaluation for kidney transplant 2-D Measurements: IVS: 1.0 cm LV: 3.1 cm LVPW: 1.0 cm LA: 2.8 cm Aorta: 2.7 cm IVC: 1.3 cm Doppler Measurements: Peak velocity across the aortic valve: 1.0 m/s Peak velocity across the LVOT: 0.87 m/s Mitral E: 0.62 Mitral A: 0.77 Ratio: 0.8 Maximum tricuspid valve velocity: 2.0 m/s 2-D Comments: 1. Normal left ventricular size, wall thickness, and normal global left ventricular systolic function. The estimated ventricular systolic ejection fraction is 65-70%. 2. Normal left atrium. Normal right atrium and right ventricle. 3. The atrial septum appeared to be normal without evidence of defect or shunt. 4. Normal aortic root. 5. No pericardial effusion seen. 6. The aortic valve, mitral valve, tricuspid valve, and pulmonic valve appeared to be normal. The proximal pulmonary artery branches were not well visualized. 7. The inferior vena cava was normal in size, central venous pressure is most likely normal. DOPPLER: Detects trace mitral regurgitation and trace tricuspid regurgitation. The calculated pulmonary artery systolic pressure is normal, less than 30 mmHg. Abnormal relaxation pattern was noted across the mitral valve leaflets as well as mitral valve annulus consistent with features of grade 1 left ventricular diastolic dysfunction. Impression: 1. Normal global left ventricular systolic function. There are some features of grade 1 left ventricular diastolic dysfunction manifested by abnormal relaxation. 2. Trace mitral regurgitation. 3. Trace tricuspid regurgitation with a normal calculated pulmonary artery systolic pressure. [facility]
== END ==
LOC: M CARPUL 09:23
PROVIDERS: ATTEND Internal Medicine Nephrology
DX: Z01.818 Encounter for other preprocedural examination (principal)

== ENCOUNTER → 2019-01-11 | Outpatient (CLI) | payer OTHER ==
[2019-01-11 11:27] LABS: APPEARANCE, URINE CLEAR (CLEAR); BACTERIA, URINE AUTO NEGATIVE (NEGATIVE); BILIRUBIN, URINE AUTO NEGATIVE (NEGATIVE); BLOOD, URINE BLOOD NEGATIVE (NEGATIVE); COLOR, URINE STRAW (YELLOW); GLUCOSE, URINE (UA) AUTO 3+ mg/dL (NEGATIVE); KETONE, URINE AUTO NEGATIVE (NEGATIVE); LEUKOCYTE ESTERASE, URINE AUTO TRACE (NEGATIVE); NITRITE, URINE AUTO NEGATIVE (NEGATIVE); PROTEIN, URINE AUTO 1+ mg/dL (NEGATIVE); RBC, URINE AUTO 4 /HPF (0-3); SPECIFIC GRAVITY URINE AUTO 1.009 (1.002-1.035); SQUAMOUS EPITHELIAL CELL UR AU 0 /HPF (0-6); UROBILINOGEN, URINE AUTO 0.2 mg/dL (0.0-2.0); WBC, URINE AUTO 11 /HPF (0-3)
== END ==
LOC: M LAB 10:36
PROVIDERS: ATTEND Internal Medicine Nephrology
DX: Z01.818 Encounter for other preprocedural examination (principal)

== ENCOUNTER → 2019-01-14 | Outpatient (CLI) | payer OTHER ==
--- NOTE | 2019-01-15 06:47 | REP ---
Clinical: Possible renal transplant. Technique: Real time norman scale ultrasound examination using curved array transducer. Findings: Liver, spleen, and pancreas are normal in contour, size, echogenicity without focal hepatic, splenic, or pancreatic lesion identified. Splenic index equals 374. The gallbladder is contracted but without obvious gallstones, wall thickening, or pericholecystic fluid. No biliary ductal dilatation is appreciated and the common bile duct measures 5.4 mm diameter. The bilateral kidneys are normal in reniform shape, echogenicity and appearance. No hydronephrosis. Right kidney measures 11.2 x 6.0 x 4.1 cm. Left kidney measures 10.6 x 5.5 x 5.4 cm. Abdominal aorta appears normal and measures 1.4 cm maximal diameter. No ascites. Impression: Essentially normal complete abdominal ultrasound. Electronically Signed by Yassine Hilton MD 01/15/2019 06:39 A
== END ==
LOC: M RAD 09:05
PROVIDERS: ATTEND Internal Medicine Nephrology
DX: Z01.818 Encounter for other preprocedural examination (principal); Z76.82 Awaiting organ transplant status

== ENCOUNTER → 2019-03-08 | Outpatient (REF) | payer OTHER | LOC: M LAB REF 15:34 | PROVIDERS: ATTEND Internal Medicine Gastroenterology | DX: K59.1 Functional diarrhea (principal); F55.2 Abuse of laxatives; E73.9 Lactose intolerance, unspecified ==

== ENCOUNTER → 2019-03-11 | Outpatient (CLI) | payer OTHER ==
[2019-03-11 13:41] LABS: HEMOGLOBIN A1c 11.5 %
== END ==
LOC: M LAB 11:58
PROVIDERS: ATTEND Internal Medicine Nephrology
DX: Z01.818 Encounter for other preprocedural examination (principal)

== ENCOUNTER → 2019-04-26 | Outpatient (REF) | payer OTHER ==
[~2019-04-26] MED LIST changes: +AMLO2.5T3; +CALC1CAP31; +D-101000; +FERR325T18; +FERR325T20; +FURO80TA2; +LEVO25TA5; +LORA0.5T5; +SENN-83; +SEVE800T3; +TAB-TAB3; +[UNRECOGNIZED DRUG - CODE]
[2019-04-26 13:05] LABS: CLOSTRIDIUM DIFFICILE PCR POSITIVE (NEGATIVE)
== END ==
LOC: M LAB REF 11:44
PROVIDERS: ATTEND Internal Medicine Gastroenterology
DX: R19.7 Diarrhea, unspecified (principal)

== ENCOUNTER 2019-06-01 07:51 | Emergency (ER) | payer OTHER ==
[~2019-06-01] VITALS: Ht 154.9 cm; Wt 50.0 kg
[~2019-06-01 07:51] MED LIST changes: -AMLO2.5T3; -CALC1CAP31; -D-101000; -FERR325T18; -FERR325T20; -FURO80TA2; -LEVO25TA5; -LORA0.5T5; -SENN-83; -SEVE800T3; -TAB-TAB3; -[UNRECOGNIZED DRUG - CODE]
[2019-06-01] MEDS ORDERED: BASA100I SC (08:10)
[2019-06-01] MEDS ORDERED: AMLO2.5T3 (08:10)
[2019-06-01] MEDS ORDERED: ADME100I2 SC (08:10)
[2019-06-01] MEDS ORDERED: TAB-TAB3 (08:10)
[2019-06-01] MEDS ORDERED: LORA0.5T5 (08:10)
[2019-06-01] MEDS ORDERED: [UNRECOGNIZED DRUG - CODE] (08:10)
[2019-06-01] MEDS ORDERED: SENN-83 (08:10)
[2019-06-01] MEDS ORDERED: FERR325T20 (08:10)
[2019-06-01] MEDS ORDERED: LEVO25TA5 (08:10)
[2019-06-01] MEDS ORDERED: SEVE800T3 (08:10)
[2019-06-01] MEDS ORDERED: CALC1CAP31 (08:10)
[2019-06-01] MEDS ORDERED: D-101000 (08:10)
[2019-06-01] MEDS ORDERED: FERR325T18 (08:10)
[2019-06-01] MEDS ORDERED: FURO80TA2 (08:10)
[2019-06-01 08:29] LABS: VENOUS BASE EXCESS 0.6 (-2.0-2.0); VENOUS HCO3 26.6 MEQ/L (23.0-27.0); VENOUS O2 SATURATION 87.4 % (60.0-80.0); VENOUS PARTIAL PRESSURE CO2 48.8 mmHg (38.0-50.0); VENOUS PH 7.354 UNITS (7.330-7.430); VENOUS STANDARD HCO3 24.8 MEQ/L; VENOUS TOTAL CO2 28.1 MEQ/L (24.0-28.0)
[2019-06-01 08:36] LABS: BASO % 0.7 % (0.0-1.0); EOS # 0.1 10^3/uL (0.0-0.5); HEMATOCRIT 32.2 % (36.0-47.0); HEMOGLOBIN 10.1 g/dl (12.0-15.5); LYMPH # 0.8 10^3/uL (1.5-5.0); LYMPH % 14.1 % (24.0-44.0); MEAN CORPUSCULAR HEMOGLOBIN 29.6 pg (27.0-33.0); MEAN CORPUSCULAR HGB CONC 31.4 g/dl (32.0-36.5); MEAN CORPUSCULAR VOLUME 94.4 fl (80.0-96.0); MONO # 0.3 10^3/uL (0.0-0.8); NEUTROPHILS # 4.6 10^3/uL (1.5-8.5); NEUTROPHILS % 78.7 % (36.0-66.0); PLATELET COUNT, AUTOMATED 315 10^3/uL (150-450); RED BLOOD COUNT 3.41 10^6/uL (4.00-5.40); WHITE BLOOD COUNT 5.8 10^3/uL (4.0-10.0)
[2019-06-01 08:51] LABS: HCG, SERUM QUALITATIVE NEGATIVE (NEGATIVE)
[2019-06-01] MEDS ORDERED: CALCIUM GLUCONATE 1,000 MG in D5W MINI-BAG PLUS 100 ML IV ONE (09:15)
[2019-06-01 09:37] LABS: ALBUMIN 3.3 GM/DL (3.2-5.2); ALT/SGPT 59 U/L (12-78); BILIRUBIN,DIRECT 0.1 MG/DL (0.0-0.2); BILIRUBIN,TOTAL 0.4 MG/DL (0.2-1.0); BLOOD UREA NITROGEN 41 MG/DL (7-18); CALCIUM LEVEL 8.8 MG/DL (8.5-10.1); CARBON DIOXIDE LEVEL 31 MEQ/L (21-32); CHLORIDE LEVEL 96 MEQ/L (98-107); CK-MB VALUE MASS < 1.0 NG/ML (<3.6); CPK CREATINE PHOSPHOKINASE 79 U/L (26-192); CREATININE FOR GFR 6.35 MG/DL (0.55-1.30); ETHYL ALCOHOL (ETHANOL) < 0.003 % (0.000-0.010); GLOMERULAR FILTRATION RATE 8.3 (>60); GLUCOSE, FASTING 395 MG/DL (70-100); MAGNESIUM LEVEL 3.2 MG/DL (1.8-2.4); MB/CK RELATIVE INDEX 1.27 (< OR =4); POTASSIUM SERUM 6.4 MEQ/L (3.5-5.1); SODIUM LEVEL 133 MEQ/L (136-145); TOTAL PROTEIN 6.7 GM/DL (6.4-8.2); TROPONIN I < 0.02 NG/ML (< 0.10)
--- NOTE | 2019-06-01 09:38 | REP ---
Portable chest x-ray: Single view: History: Diabetic ketoacidosis. Comparison chest x-ray: May 13, 2018. Findings: A right internal jugular tunneled central venous catheter is seen in place with it is tip in the expected location of the right atrium SVC junction. The lungs are well inflated and clear. There is no evidence of pneumothorax or hydrothorax. Heart is not enlarged. Pulmonary vasculature is not increased. No significant bony abnormality. Impression: No active disease. Right-sided central venous catheter in place. Electronically Signed by Juliano Brown MD 06/01/2019 11:44 A
[2019-06-01 10:04] LABS: ACETONE/KETONE 5.88 MG/DL (<2.81)
[2019-06-01 11:15] VITALS: BP 182/121
[2019-06-01 11:39] LABS: HEMOGLOBIN A1c 8.7 %
--- NOTE | 2019-06-01 19:10 | ECGEPIP ---
[facility] - ED Test Date: 2019-06-01 Pat Name: SHRUTHI TODD Department: Room: - Gender: Female Hse Advisor: ab : 1990 Requested By: KALEB Armijo Order Number: [id number] Reading MD: Lisa Dodson Measurements Intervals [place] Rate: 93 P: 44 VA: 157 QRS: 36 QRSD: 84 T: 57 QT: 348 QTc: 435 Interpretive Statements SINUS RHYTHM NSTTW abnormalities DECREASED RATE 05/13/18 Electronically Signed on 06-01-2019 19:10:32 EST by Lisa Dodson
== END 2019-06-01 11:24 | disposition home or self-care (01) ==
LOC: M ED 07:51 → EDBD 07:51 → M ED 11:24
DX: N18.6 End stage renal disease (principal); Z99.2 Dependence on renal dialysis; E87.5 Hyperkalemia; E10.9 Type 1 diabetes mellitus without complications; Z95.9 Presence of cardiac and vascular implant and graft, unspecified; Z79.4 Long term (current) use of insulin; Z79.899 Other long term (current) drug therapy; Z88.6 Allergy status to analgesic agent
CPT/HCPCS: 71045; 80048; 80076; 82010; 82550; 82553; 82803; 83036; 83735; 84703; 85025; 87040; 93005; 93041; 96365; 99285; G0480; J0610

== ENCOUNTER 2019-06-19 07:01 | Outpatient (CLI) | payer OTHER ==
[~2019-06-19] VITALS: Ht 154.9 cm; Wt 50.0 kg
[2019-06-19 07:00] VITALS: BP 160/102
[~2019-06-19 07:01] MED LIST changes: +AMLO2.5T3; +CALC1CAP31; +D-101000; +FERR325T18; +FERR325T20; +FURO80TA2; +LEVO25TA5; +LORA0.5T5; +SENN-83; +SEVE800T3 PO; +TAB-TAB3; +[UNRECOGNIZED DRUG - CODE]
[2019-06-19 09:00] VITALS: BP_SYST 162; BP_SYST 170; BP_DIAS 71; BP_DIAS 79
[2019-06-19 10:17] VITALS: BP 174/94
[2019-06-19 10:20] VITALS: BP 174/94
[2019-06-19 11:20] VITALS: BP 160/78
[2019-06-19 11:50] VITALS: BP 168/99
== END 2019-06-19 13:00 | disposition home or self-care (01) ==
LOC: M INFU 07:01
PROVIDERS: ATTEND Internal Medicine Nephrology
DX: D64.9 Anemia, unspecified (principal)
CPT/HCPCS: 36430; 86850; 86900; 86901; 86920; P9016

== ENCOUNTER 2019-08-31 10:16 | Inpatient (IN) | payer MEDICARE, OTHER ==
[~2019-08-31] VITALS: Ht 152.4 cm; Wt 44.0 kg
[~2019-08-31 10:16] MED LIST changes: -CALC1CAP31; +CALC1CAP31 PO; -D-101000; +D-101000 PO; -FERR325T18; +FERR325T18 PO; -FERR325T20; +FERR325T20 PO; -LEVO25TA5; +LEVO25TA5 PO; -SENN-83; +SENN-83 PO; -TAB-TAB3; +TAB-TAB3 PO; -[UNRECOGNIZED DRUG - CODE]; +[UNRECOGNIZED DRUG - CODE] PO
[2019-08-31] MEDS ORDERED: LORazepam 2 MG/ML VIAL (J2060) As Ordered ONE (11:05)
[2019-08-31 11:11] LABS: BASO # 0.1 10^3/uL (0.0-0.2); BASO % 0.8 % (0.0-1.0); EOS # 0.1 10^3/uL (0.0-0.5); EOS % 1.1 % (0.0-3.0); HEMATOCRIT 40.2 % (36.0-47.0); HEMOGLOBIN 13.5 g/dl (12.0-15.5); LYMPH # 1.6 10^3/uL (1.5-5.0); LYMPH % 18.5 % (24.0-44.0); MEAN CORPUSCULAR HEMOGLOBIN 33.4 pg (27.0-33.0); MEAN CORPUSCULAR HGB CONC 33.6 g/dl (32.0-36.5); MEAN CORPUSCULAR VOLUME 99.5 fl (80.0-96.0); MONO # 0.4 10^3/uL (0.0-0.8); MONO % 4.2 % (0.0-5.0); NEUTROPHILS # 6.4 10^3/uL (1.5-8.5); NEUTROPHILS % 74.9 % (36.0-66.0); PLATELET COUNT, AUTOMATED 372 10^3/uL (150-450); RED BLOOD COUNT 4.04 10^6/uL (4.00-5.40); WHITE BLOOD COUNT 8.5 10^3/uL (4.0-10.0)
[2019-08-31 11:31] LABS: ALBUMIN 3.6 GM/DL (3.2-5.2); BILIRUBIN,DIRECT 0.2 MG/DL (0.0-0.2); BILIRUBIN,TOTAL 0.6 MG/DL (0.2-1.0); TOTAL PROTEIN 6.8 GM/DL (6.4-8.2)
[2019-08-31] MEDS ORDERED: LABETALOL 100MG/20ML VIAL IV STA ×2 (11:40→12:10)
--- NOTE | 2019-08-31 12:16 | REP ---
CT BRAIN WITHOUT CONTRAST: REASON: Seizure. PRIORS: None. TECHNIQUE: 4.5 mm contiguous transaxial sections were obtained from the skull base to the cerebral convexities with thin cuts through the posterior fossa without the administration of intravenous contrast. FINDINGS: The ventricles and sulci are consistent with the patient's age. There are no extra-axial fluid collections. There is no mass effect. The deep cerebral white matter is consistent with the patient's age. The orbital and petrous structures, cerebellopontine angles, and posterior fossa are unremarkable. The sella turcica, cavernous, and paracavernous structures are essentially unremarkable. The visualized portions of the paranasal sinuses and mastoid air cells are clear. Images of the skull base show no gross abnormality. IMPRESSION: Essentially unremarkable CT examination of the brain. Electronically Signed by Teto Ramirez DO 08/31/2019 12:27 P
[2019-08-31 13:08] LABS: BASO # 0.1 10^3/uL (0.0-0.2); BASO % 0.6 % (0.0-1.0); EOS % 0.2 % (0.0-3.0); HEMATOCRIT 35.7 % (36.0-47.0); LYMPH # 0.9 10^3/uL (1.5-5.0); LYMPH % 8.6 % (24.0-44.0); MEAN CORPUSCULAR HGB CONC 33.6 g/dl (32.0-36.5); MEAN CORPUSCULAR VOLUME 98.1 fl (80.0-96.0); MONO # 0.4 10^3/uL (0.0-0.8); NEUTROPHILS % 86.1 % (36.0-66.0); PLATELET COUNT, AUTOMATED 333 10^3/uL (150-450); RED BLOOD COUNT 3.64 10^6/uL (4.00-5.40); WHITE BLOOD COUNT 10.4 10^3/uL (4.0-10.0)
[2019-08-31] MEDS ORDERED: hydrALAZINE 20MG/ML 1ML VIAL (J0360 PER 20MG) IV STA (13:13)
[2019-08-31 13:50] LABS: ALBUMIN 3.5 GM/DL (3.2-5.2); BILIRUBIN,DIRECT 0.2 MG/DL (0.0-0.2); BILIRUBIN,TOTAL 0.6 MG/DL (0.2-1.0); CALCIUM LEVEL 13.9 MG/DL (8.5-10.1); CK-MB VALUE MASS 4.6 NG/ML (<3.6); CREATININE FOR GFR 7.77 MG/DL (0.55-1.30); GLOMERULAR FILTRATION RATE 6.5 (>60); MB/CK RELATIVE INDEX 4.65 (< OR =4); POTASSIUM SERUM 5.5 MEQ/L (3.5-5.1); THYROID STIMULATING HORMONE 3.41 uIU/ML (0.358-3.740); TOTAL PROTEIN 6.6 GM/DL (6.4-8.2); TROPONIN I 0.03 NG/ML (< 0.10)
--- NOTE | 2019-08-31 14:22 | REP ---
CHEST, PORTABLE: COMPARISON: 06/01/2019 There is no evidence of acute infiltrate. No pleural effusion is seen. The heart is normal in size. The mediastinal silhouette is unremarkable. The visualized osseous structures are intact. Right central venous catheter is unchanged. IMPRESSION: No acute pulmonary disease. Electronically Signed by Charlie Farnsworth MD 08/31/2019 02:44 P
[2019-08-31 15:07] LABS: AMPHETAMINES LEVEL URINE NEGATIVE (NEGATIVE); BARBITURATES URINE NEGATIVE (NEGATIVE); BENZODIAZEPINES URINE NEGATIVE (NEGATIVE); CANNABINOIDS URINE NEGATIVE (NEGATIVE); COCAINE METABOLITE URINE NEGATIVE (NEGATIVE); METHADONE URINE NEGATIVE (NEGATIVE); OPIATES URINE NEGATIVE (NEGATIVE); PHENCYCLIDINE URINE NEGATIVE (NEGATIVE)
[2019-08-31] MEDS ORDERED: LORazepam 2 MG/ML VIAL (J2060) IV STA (15:09)
[2019-08-31] MEDS ORDERED: DEXTROSE 50% 50 ML SYRINGE IV PRN (15:15)
[2019-08-31] MEDS ORDERED: GLUCAGON INJ 1MG VIAL SC PRN (15:15)
[2019-08-31] MEDS ORDERED: LORazepam 2 MG/ML VIAL (J2060) IV PRN (15:15)
[2019-08-31] MEDS ORDERED: GLUCOSE 4GM CHEW TABLET PO PRN (15:15)
[2019-08-31] MEDS ORDERED: PIPERACILLIN/TAZOBACTAM SOD 2.25 GM in D5W MINI-BAG PLUS 50 ML IV SCH (15:30)
[2019-08-31] MEDS ORDERED: ONDANSETRON 4MG/2ML VIAL IV PRN (15:30)
--- NOTE | 2019-08-31 15:39 | HPEPDOC ---
General Date of Admission Date of Service: August 31, 2019 Chief Complaint The patient is a 29-year-old female admitted with a reason for visit of TIRED. Source: RN/MD, EMS, Old records, Other (agent is sedated with Ativan given for seizures) Exam Limitations: Other (. Patient is sedated) Timing/Duration: Other (, unknown) Severity: Other (, unknown) Associated Symptoms: Other (, lethargy and tiredness) History of Present Illness This is a 29 years old white female with past medical history of binge eating disorder, bulimia nervosa, rheumatoid arthritis, herpes simplex, type 1 diabetes mellitus, anemia, vitamin D deficiency, end-stage renal disease on hemodialysis, and Saturdays was brought to ER by ambulance as patient's father were unable to wake her up in a. In the ER. As per records, patient said she woke up fine this morning, but she laid back and then she had a hard time. He cannot when she woke up she had nausea, vomiting and also in ED, patient possibly had as tonic-clonic seizure and was given Ativan 2 mg. I'm unable to obtain history from patient as she is sedated secondary to Ativan. History was obtained from [facility] records and and reviews patient's outpatient records from rheumatology clinic. Home Medications Scheduled Amlodipine Besylate (Amlodipine Besylate) 10 Mg Tablet, 10 MG PO DAILY, (Reported) Calcitriol (Calcitriol) 0.25 Mcg Capsule, 0.25 MCG PO DAILY, (Reported) Cholecalciferol (Vitamin D3) (Vitamin D3) 25 Mcg Capsule, 25 MCG PO DAILY, (Reported) Insulin Glargine,Hum.rec.anlog (Basaglar Kwikpen U-100) 100 Unit/1 Ml Insuln.pen, 10 UNIT SC DAILY, (Reported) Sevelamer Carbonate (Sevelamer Carbonate) 800 Mg Tablet, PO AC, (Reported) Scheduled PRN Acetaminophen (Tylenol) 325 Mg Tablet, 650 MG PO Q6HP PRN for PAIN, (Reported) Miscellaneous Medications Ferrous Sulfate (Ferosul) 325 Mg Tablet, (Reported) Ferrous Sulfate (Ferrous Sulfate) 325 Mg Tablet, (Reported) Insulin Lispro (Admelog Solostar) 100 Unit/1 Ml Insuln.pen, 100 UNIT SC, (Reported) Levothyroxine Sodium (Levothyroxine Sodium) 25 Mcg Tablet, (Reported) Lorazepam (Lorazepam) 0.5 Mg Tablet, (Reported) Multivitamin (Tab-A-Elvie) 1 Each Tablet, (Reported) Ranitidine HCl (Ranitidine HCl) 150 Mg Capsule, (Reported) Sennosides (Senna) 8.6 Mg Tablet, (Reported) Allergies Coded Allergies: NSAIDS (Non-Steroidal Anti-Inflamma (Verified Adverse Reaction, Severe, Kidney Failure, 06/01/19) Past Medical History Medical History Binge eating disorder, bulimia nervosa. Rheumatoid arthritis. Herpes simplex type 1 diabetes mellitus, anemia, vitamin D deficiency, end-stage renal disease on hemodialysis Surgical History EGD, colonoscopy and renal biopsy with nephritis 2019. Family History Father. Mother both alive with no medical problems. One sister has type 1 diabetes mellitus Social History * Smoker: Denies Alcohol: Denies Drugs: denies A-FIB/CHADSVASC A-FIB History Current/History of A-Fib/PAF?: No Review of Systems Constitutional: Reports: Other (, unable to obtained review of system as pat ient is sedated) Physical Examination General Exam: Positive: Other (sedated) Eye Exam: Positive: Other Eye Symptoms (, unable to lie exam) ENT Exam: Positive: Atraumatic, Mucous membr. moist/pink Neck Exam: Positive: Supple Chest Exam: Positive: Clear to auscultation, Normal air movement Heart Exam: Positive: Rate Normal, Normal S1, Normal S2 Abdomen Exam: Positive: Normal bowel sounds, Soft Extremity Exam: Positive: Normal pulses Skin Exam: Positive: Nl turgor and temperature Neuro Exam: Positive: Other (unable to do neuro exam) Psych Exam: Positive: Other (unable to do psych exam) Vital Signs Vital Signs Date Time Temp Pulse Resp B/P (MAP) Pulse Ox O2 Delivery O2 Flow Rate FiO2 08/31/19 15:01 101 08/31/19 14:50 18 120/77 (91) 99 Room Air 08/31/19 10:33 96.7 Laboratory Data Labs 24H Laboratory Tests 2 08/31/19 10:54: Immature Granulocyte % (Auto) 0.5, Neutrophils (%) (Auto) 74.9H, Lymphocytes (%) (Auto) 18.5L, Monocytes (%) (Auto) 4.2, Eosinophils (%) (Auto) 1.1, Basophils (%) (Auto) 0.8, Neutrophils # (Auto) 6.4, Lymphocytes # (Auto) 1.6, Monocytes # (Auto) 0.4, Eosinophils # (Auto) 0.1, Basophils # (Auto) 0.1, Nucleated Red Blood Cells % (auto) 0.0, Magnesium Level 3.0H, Total Bilirubin 0.6, Direct Bi lirubin 0.2, Aspartate Amino Transf (AST/SGOT) 21, Alanine Aminotransferase (ALT/SGPT) 24, Alkaline Phosphatase 91, Total Protein 6.8, Albumin 3.6, Albumin/Globulin Ratio 1.13, Lipase 32L 08/31/19 11:01: POC Glucose (Misc Panel) 236H, POC Sodium (Misc Panel) 130L, POC Potassium (Misc Panel) 5.4H, POC Chloride (Misc Panel) 86L, POC Total CO2 (Misc Panel) 37.0H, POC Blood Urea Nitrogen (Misc Panel 27H, POC Ionized Calcium (Misc Panel) 6.0H, POC Creatinine (Misc Panel) 7.7H, POC Hematocrit (Misc Panel) 40.0 08/31/19 11:31: POC Total CO2 (Misc Panel) 43.0H, POC pH (Misc Panel) 7.398, POC Base Excess (Misc Panel) 17.0H, POC Saturated Percent O2 (Misc) 100H, POC pO2 (Misc Panel) 432.0H, POC pCO2 (Misc Panel) 67.3*H, POC HCO3 (Misc Panel) 41.5H 08/31/19 12:23: POC Total CO2 (Misc Panel) 49.0H, POC pH (Misc Panel) 7.425, POC Base Excess (Misc Panel) 22.0H, POC Saturated Percent O2 (Misc) 99H, POC pO2 (Misc Panel) 123.0H, POC pCO2 (Misc Panel) 71.0*H, POC HCO3 (Misc Panel) 46.5H 08/31/19 12:56: Immature Granulocyte % (Auto) 0.5, Neutrophils (%) (Auto) 86.1H, Lymphocytes (%) (Auto) 8.6L, Monocytes (%) (Auto) 4.0, Eosinophils (%) (Auto) 0.2, Basophils (%) (Auto) 0.6, Neutrophils # (Auto) 9.0H, Lymphocytes # (Auto) 0.9L, Monocytes # (Auto) 0.4, Eosinophils # (Auto) 0.0, Basophils # (Auto) 0.1, Nucleated Red Blo od Cells % (auto) 0.0, Anion Gap 8, Glomerular Filtration Rate 6.5L, Calcium Level 13.9H, Total Bilirubin 0.6, Direct Bilirubin 0.2, Aspartate Amino Transf (AST/SGOT) 20, Alanine Aminotransferase (ALT/SGPT) 24, Alkaline Phosphatase 88, Total Creatine Kinase 99, Creatine Kinase MB 4.6H, Creatine Kinase MB Relative Index 4.65H, Troponin I 0.03, Total Protein 6.6, Albumin 3.5, Albumin/Globulin Ratio 1.13, Thyroid Stimulating Hormone (TSH) 3.410 08/31/19 14:21: Urine Color YELLOW, Urine Appearance CLOUDYH, Urine pH 9.0, Urine Specific Counce 1.006, Urine Protein 2+H, Urine Glucose (UA) 3+H, Urine Ketones TRACEH, Urine Blood 1+H, Urine Nitrite NEGATIVE, Urine Bilirubin NEGATIVE, Urine Urobilinogen 0.2, Urine Leukocyte Esterase TRACEH, Urine WBC (Auto) 16H, Urine RBC (Auto) 3, Urine Hyaline Casts (Auto) 0, Urine Bacteria (Auto) 1+H, Urine Squamous Epithelial Cells 0, Urine Amorphous Sediment SMALLH, Urine Sperm (Auto) , Urine Opiates Screen NEGATIVE, Urine Methadone Screen NEGATIVE, Urine Barbiturates Screen NEGATIVE, Urine Phencyclidine Screen NEGATIVE, Urine Amphetamines Screen NEGATIVE, Urine Benzodiazepines Screen NEGATIVE, Urine Cocaine Metabolite Screen NEGATIVE, Urine Cannabinoids Screen NEGATIVE CBC/BMP Laboratory Tests 08/31/19 10:54 08/31/19 12:56 Microbiology Microbiology 08/31/19 Gastrointestinal Tract Panel (PCR), Received Pending 08/31/19 Urine Culture, Received Pending Problems (1) Hypertensive emergency Status: Acute Problem Text: This is a 29 years old white female with past medical history of binge eating disorder, bulimia nervosa, rheumatoid arthritis, herpes simplex, type 1 diabetes mellitus, anemia, vitamin D deficiency, end-stage renal disease on hemodialysis and feel tired, fatigue and her father was unable to wake her up this morning, so she was brought to ED where she started having nausea, vomiting and O on. She also was observed to experience a tonic-clonic seizure in ED. Patient was also found to have a systolic blood pressure more than 2:30. She did receive labetalol 20 mg 2 and hydralazine 10 mg 1, also ativan 2 mg 1 Patient is very stable at home on Norvasc 2.5 mg by mouth daily for hypertension Patient. Blood pressure right now is 120/77 and heart rate of 101 Chest x-rays, NAD. EKG is sinus tach with no acute ST-T changes, CT of the head is negative WBC count of 10.4, hemoglobin 12, hematocrit 34.7, platelets of 333 Electrolytes are within normal range except potassium is slightly elevated to 5.5 and sodium is slightly decreased to 132, BUN of 29, creatinine of 7.7 First troponin is 0.03, lipase 32. Urine tox is negative, but UA shows some white cells and cloudy appearance Admit patient to PCU for further workup and management Saline lock Hydralazine 10 mg IV every 6 hours when necessary for systolic more than 150 Will restart patient's home medication including Norvasc 10 mg by mouth daily Is also obtained a 2 more troponins to complete cardiac enzyme sequence Nephrology consult, Dr. King was called from the ED Also Dr. holt from neurology was called from ED Diet is consistent carbohydrate diet Activity as tolerated DVT prophylaxis with Lovenox (2) Seizure Status: Acute Problem Text: Questionable new onset seizure Patient received Ativan 2 mg IV and at present time patient is sedated and sleeping Neuro check every 4 hours for 24 hours Seizure precautions Anyone 1 mg IV when necessary for every [address] Croft spoke with Dr. etienne from neurology and he recommended only observation ,not to add any new medications and follow-up as an outpatient in his office Patient CT head was essentially negative (3) ESRD (end stage renal disease) Status: Acute Problem Text: was called for nephrology consultation Other recommendations as per nephro (4) Urinary tract infection Status: Acute Problem Text: Most likely patient has a urinary tract infection, probably secondary to diabetes mellitus Urine cultures have been ordered And also get ultrasound of kidneys and bladder to rule out pyelonephritis Will start Zosyn 2.275 mg IV every 12 hours till the urine cultures are available (5) Diabetes mellitus Status: Chronic Problem Text: Diabetes mellitus type 1 Fingerstick blood sugar every before meals and at bedtime with coverage Restart all patient's home meds once the med rec is complete by pharmacy Plan / VTE VTE Prophylaxis Ordered?: Yes ARISTIDES LOPEZ MD August 31, 2019 15:39
[2019-08-31] MEDS ORDERED: AMLO10TA5 PO (15:45)
[2019-08-31] MEDS ORDERED: ACET-907 PO (15:45)
[2019-08-31] MEDS ORDERED: LORA1TAB4 PO (15:59)
[2019-08-31] MEDS ORDERED: FAMO20TA PO (15:59)
[2019-08-31] MEDS ORDERED: HYDR200T3 PO (15:59)
[2019-08-31] MEDS ORDERED: VELP5CHW PO (16:02)
[2019-08-31] MEDS ORDERED: CALC1CAP PO (16:02)
[2019-08-31] MEDS ORDERED: RENATAB5 PO (16:02)
[2019-08-31] MEDS ORDERED: HUMI40KI SC (16:03)
[2019-08-31 16:21] VITALS: BP 133/86
[2019-08-31] MEDS ORDERED: LORazepam 1 MG TAB PO PRN (16:30)
--- NOTE | 2019-08-31 17:22 | REP ---
RENAL ULTRASOUND: Real-time sonographic evaluation of kidneys performed. The kidneys are somewhat increased in echotexture suggesting medical renal disease. There is no hydronephrosis or renal mass. Right kidney measures 12.2 x 4.3 x 4.2 cm and left kidney 10.7 x 5.0 x 5.6 cm. Urinary bladder is mildly distended. IMPRESSION: Increased echotexture of the kidneys without evidence of hydronephrosis. Electronically Signed by Charlie Farnsworth MD 09/01/2019 09:41 A
[2019-08-31] MEDS ORDERED: SLF 3 ML SYR IV PRN (17:30)
[2019-08-31] MEDS: HumaLOG INSULIN (NovoLOG) PER UNIT SC SCH ×2 (17:30→20:42)
[2019-08-31] MEDS ORDERED: SUCROFERRIC OXYHYDROXIDE 500MG CHEW TAB (VELPHORO) PO SCH (18:00)
[2019-08-31] MEDS: PANTOPRAZOLE 40MG VIAL (C9113 PER 1) IV SCH (18:15)
--- NOTE | 2019-08-31 18:39 | ECGEPIP ---
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
[2019-08-31] MEDS: PIPERACILLIN/TAZOBACTAM SOD 4.5 GM in D5W MINI-BAG PLUS 50 ML IV SCH (18:44)
[2019-08-31] MEDS ORDERED: HumaLOG INSULIN (NovoLOG) PER UNIT SC ONE (19:00)
[2019-08-31 20:00] VITALS: BP 128/86
[2019-08-31] MEDS: FERROUS SULFATE 325MG TAB PO SCH (20:41)
[2019-08-31] MEDS: SENNA 8.6 MG TAB (SENOKOT) PO SCH (20:42)
[2019-08-31] MEDS: SLF 3 ML SYR IV SCH (20:42)
[2019-08-31] MEDS ORDERED: CALCIUM ACETATE 667MG GELCAP PO SCH (21:00)
[2019-09-01] VITALS (8 sets, daily range): BP systolic 112–180; BP diastolic 66–130
[2019-09-01] MEDS: LEVOTHYROXINE 25MCG TABLET (0.025MG) PO SCH (04:25)
[2019-09-01] MEDS: PIPERACILLIN/TAZOBACTAM SOD 4.5 GM in D5W MINI-BAG PLUS 50 ML IV SCH (04:25)
[2019-09-01] MEDS: hydrALAZINE 20MG/ML 1ML VIAL (J0360 PER 20MG) IV PRN ×2 (04:26→17:28)
[2019-09-01] MEDS: SLF 3 ML SYR IV SCH ×3 (04:26→20:44)
[2019-09-01] MEDS: ACETAMINOPHEN TAB 650MG DOSE (2X325MG) PO PRN ×4 (04:53→17:27)
[2019-09-01 06:13] LABS: HEMOGLOBIN A1c 8.2 %
[2019-09-01 06:31] LABS: ALBUMIN 3.3 GM/DL (3.2-5.2); BILIRUBIN,TOTAL 0.6 MG/DL (0.2-1.0); CALCIUM LEVEL 11.1 MG/DL (8.5-10.1); CHOLESTEROL RISK RATIO 1.519 (<5); CREATININE FOR GFR 9.13 MG/DL (0.55-1.30); GLOMERULAR FILTRATION RATE 5.4 (>60); MAGNESIUM LEVEL 2.9 MG/DL (1.8-2.4); TOTAL PROTEIN 6.5 GM/DL (6.4-8.2); TROPONIN I 0.02 NG/ML (< 0.10)
[2019-09-01] MEDS: SENNA 8.6 MG TAB (SENOKOT) PO SCH ×2 (08:03→20:44)
[2019-09-01] MEDS: FAMOTIDINE 20 MG TAB PO SCH (08:03)
[2019-09-01] MEDS: FERROUS SULFATE 325MG TAB PO SCH (08:03)
[2019-09-01] MEDS: HumaLOG INSULIN (NovoLOG) PER UNIT SC SCH ×4 (08:04→20:15)
[2019-09-01] MEDS ORDERED: CALCITRIOL 0.25 MCG CAP (S0169) PO SCH (09:00)
[2019-09-01] MEDS ORDERED: ENOXAPARIN 40MG/0.4ML SYRINGE (J1650 PER 10MG) SC SCH (09:00)
[2019-09-01] MEDS: amLODIPine 10 MG TAB PO SCH (09:00)
--- NOTE | 2019-09-01 13:00 | CR ---
DATE OF CONSULTATION: 09/01/2019 REQUESTING PHYSICIAN: Mekhi Licea MD CONSULTING PHYSICIAN: Ha Cotto MD REASON FOR CONSULTATION: Management of end-stage renal disease, hemodialysis, and hypertension. CHIEF COMPLAINT: The patient presented to the hospital on 08/31/2019. The patient was brought into the emergency room yesterday by family members via ambulance because of inability to wake her up and altered mental status. HISTORY OF PRESENT ILLNESS: Rowena Shah is a 29-year-old female with past medical history of end-stage renal disease on hemodialysis every Saturday, , Saturday, well known to nephrology service from outpatient dialysis. She is type 1 diabetic. Multiple other comorbidities, as mentioned below. She was dialyzed last over the weekend on Saturday. She was brought to the emergency room yesterday via ambulance; and as reported by her family members, it was difficult to wake the patient up. She apparently had a tonic-clonic seizure at home. The patient was very hypertensive in the emergency room. She needed intravenous (IV) labetalol and IV Ativan injections for high blood pressure. She was admitted under the hospitalist service overnight. Nephrology service was called for further help in the management of this patient with end-stage renal disease and hypertensive emergency. I saw and evaluated the patient today morning in the bedside. She is feeling much better today. She is awake and alert. She is tolerating the hemodialysis. PAST MEDICAL HISTORY: Past medical history of end-stage renal disease on hemodialysis every Saturday, , Saturday, history of bulimia nervosa and binge-eating disorder, rheumatoid arthritis, diabetes mellitus type 1, anemia in end-stage renal disease. PAST SURGICAL HISTORY: Status post esophagogastroduodenoscopy (EGD) and colonoscopy in the past, status post renal biopsy in the past, and a right internal jugular (vein) (IJ) tunneled hemodialysis catheter. ALLERGIES: She is allergic to NSAIDs. FAMILY HISTORY: One sister has type 1 diabetes. No history of end-stage renal disease. SOCIAL HISTORY: The patient lives at home. Denies any smoking, illicit drug abuse, or alcohol abuse. REVIEW OF SYSTEMS: Constitutional: She denies any weakness at this time. Eyes: She denies any blurry vision, double vision. Ears, nose, and throat (ENT): She denies any dysphagia, odynophagia, ear discharge. Cardiovascular: She denies any chest pain or palpitation. Respiratory: She denies any shortness of breath or cough. Gastrointestinal (GI): She denies any nausea, vomiting. Genitourinary: She denies any dysuria or hematuria. Musculoskeletal: She denies any muscle aches and pains. Skin: She denies any rashes or ulcers. Central nervous system (ACCOUNT ASSOCIATE): The patient had altered mental status yesterday, but she denies any active complaints at this time. Hematological/oncological: She denies any easy bleeding or bruising. All other review of systems is negative. PHYSICAL EXAMINATION: General: The patient is awake, alert, oriented times three, laying in bed, getting hemodialysis done. Vital signs: Temperature is 97.6 degrees Fahrenheit, blood pressure 138/83, pulse is 115, respiratory rate of 18, saturating 96% on room air. Head and neck examination: Extraocular muscles intact. Pupils equally round and reactive to light. Mucous membranes are moist. Neck is supple. There is no jugular venous distention (JVD). She has a right IJ tunneled hemodialysis catheter. Cardiovascular: S1, S2, regular rate. No edema of the bilateral lower extremities. Respiratory: Chest is clear to auscultation bilaterally. Bilateral equal air entry. No rales or rhonchi. Abdomen: Soft, positive bowel sounds. Nontender. No organomegaly. Musculoskeletal: No clubbing or cyanosis. Pulses are 2+. Central nervous system (ACCOUNT ASSOCIATE): No focal deficit. Power is 5/5 in all extremities. Skin: No rashes or ulcers. LABORATORY REVIEW: Complete blood count (CBC) showed a WBC 10.4, hemoglobin is 12, platelets of 333. Urinalysis showed 2+ protein, 1+ blood, 16 WBCs, 1+ bacteria. Basic metabolic profile (BMP) showed sodium 131, potassium 5, chloride 85, bicarbonate 40, BUN 37, creatinine 9.1, hemoglobin A1c 8.2, calcium was 13.9 on arrival and 11.1 now. PTH was done yesterday, which was 14.6. Toxicology: All the urine toxicology is negative. MICROBIOLOGY: Urine culture is pending. Gastrointestinal (GI) panel is negative. IMAGING: A CAT scan of the head was done yesterday, which showed no acute pathology. CURRENT INPATIENT MEDICATIONS: The patient is getting Zosyn 4.5 grams IV every 12 hours. I have stopped that. She is on Tylenol as needed. She is getting amlodipine 10 mg daily. The patient was getting calcitriol 0.25 mcg by mouth daily, which I have stopped. She is also getting calcium acetate 661 mg by mouth three times a day with meals, which I have stopped, as well. She is on Lovenox 30 mg subcutaneous daily, Pepcid 10 mg in the morning, iron tablet 325 mg by mouth twice a day which I have stopped, as well. She is on hydralazine 10 mg every 6 hours as needed systolic blood pressure more than 150. She is on insulin lispro sliding scale, levothyroxine 25 mcg by mouth daily. She was given IV Ativan yesterday. She is on Protonix 40 mg IV daily, Senokot one tablet by mouth twice a day, Renvela 1600 mg by mouth with meals. ASSESSMENT: A 29-year-old female with a history of end-stage renal disease on hemodialysis, diabetes mellitus type 1, admitted this time with hypertensive emergency and seizures. PLAN: 1. End-stage renal disease. The patient is being dialyzed according to her regular schedule. Minimal ultrafiltration is done. She does not have any signs of fluid overload. 2. Hypertensive emergency. The patient's home blood pressure medication was restarted, 10 mg daily. She needed IV hydralazine and labetalol yesterday. Apparently, she has a drop in the blood pressures with dialysis. She usually does not have history of high blood pressures. I highly suspect that the hypertensive emergency, headache, and seizures were because of hypercalcemia. All the calcium-based binders, vitamin D, and vitamin D analogs have been stopped. Hopefully, calcium level should improve with dialysis. If it does not improve, then the dialysate will be changed to low calcium dialysate. 3. Hypercalcemia. Most likely, it is iatrogenic. PTH is adequately low. In our records, the patient is not supposed to be on calcitriol. Not sure if the patient was taking calcitriol at home. However, it has been stopped now. She should not be on any vitamin D supplements or calcium-based phosphorus binders. I would repeat the ionized calcium level after dialysis today. 4. Bacteriuria. The patient has small amount of bacteria in the urinalysis. However, she has negative nitrite and very trace leukocyte esterase. I do not think that the patient has a urinary tract infection (UTI) at this time. Urine culture is still pending. I am going to stop the antibiotic at this time. They will be only started if the patient has significant positive urine cultures. 5. Diabetes mellitus type 1. The patient is insulin dependent. She is getting insulin sliding scale at this time. Glucose levels are controlled. 6. Hypothyroidism. Continue current dose of levothyroxine 25 mcg by mouth daily. 7. Chronic kidney disease, mineral bone disease. Continue current dose of Renvela 1600 mg by mouth with meals. Phosphorus level is pending. No need of Velphoro at this time. Thank you for involving me in the care of this patient. I shall be happy to follow the patient along with you tomorrow morning.
[2019-09-01] MEDS: (RENVELA) SEVELAMER **CARBONate** 800 MG TAB PO SCH ×2 (13:26→17:24)
[2019-09-01] MEDS: PANTOPRAZOLE 40MG VIAL (C9113 PER 1) IV SCH (17:24)
--- NOTE | 2019-09-01 20:27 | IPNPDOC ---
Date Seen The patient was seen on 09/01/19. Progress Note SUBJECTIVE: HD today, BP improved. Nephrology suspicious of hypercalcemia as cause of seizure. Holding medication to increase calcium. Denies chest pain, n/v/d, shortness of breath. OBJECTIVE: VITAL SIGNS: Please see below PHYSICAL EXAMINATION: CONSTITUTIONAL: No acute distress, resting comfortably, AAO x 3 EYES: PERRLA, EOM intact HENT, MOUTH: Normocephalic, atraumatic, moist mucous membranes NECK: SUPPLE, no JVD, no lymphadenopathy, no carotid bruit CV: Regular rate and rhythm, S1S2 normal, no murmurs/rubs/gallops CHEST: Port in right upper chest RESPIRATORY: Clear to auscultation bilaterally, no rales/rhonchi/wheezes GI: BS positive in 4 quadrants, soft, nontender, nondistended, no rebound or guarding, no organomegaly : Deferred MUSCULOSKELETAL: Normal ROM. No cyanosis, clubbing, swelling, joint deformity, extremity edema INTEGUMENTARY: Intact, no rashes, no lesions, no erythema NEUROLOGIC: Cranial Nerves II-XII are intact, no focal deficits PSYCHIATRIC: Mood and affect are normal CURRENT MEDICATIONS: Please see below LABORATORY DATA: Please see below IMAGING: None ASSESSMENT: 29 y/o F admitted for hypertensive emergency, new-onset seizure. PLAN: (1) Hypertensive emergency, acute and possibly 2/2 to hypercalcemia. Per nephro logy, it is highly suspicious that the hypertensive emergency, headache, and seizures were because of hypercalcemia. All the calcium-based binders, vitamin D, and vitamin D analogs have been stopped. Hopeful that calcium level should improve with dialysis and stopping of medications. If it does not improve, then the dialysate will be changed to low calcium dialysate. BP ranging 120-180/74-90 at times. C/w home medication. (2) New onset seizure possbily 2/2 to hypercalcemia from ESRD vs. suppl ementation. No new seizures overnight. Calcium improving. Dr. Groves from neurology recommended only observation ,not to add any new medications and follow-up as an outpatient in his office. Patient CT head was essentially negative. Seizure precautions. Calcium should be near or normal prior to di scharge. (3) ESRD (end stage renal disease). HD today. Nephrology following. (4) Bacteriuria. UA not highly suspicious for UTI, UCx pending. IV abx stopped. (5) Hypercalcemia, likely iatrogenic. PTH is adequately low. In nephrology records, the patient was not supposed to be on calcitriol. That has been stopped and it was decided she should not be on any vitamin D supplements or calcium-bas ed phosphorus binders. F/u daily calcium level. (6) Hypothyroidism. Continue current dose of levothyroxine 25 mcg by mouth daily. (7) Diabetes mellitus type I. BS controlled. C/w fingerstick blood sugar every before meals and at bedtime with coverage. C/w all home meds, consistent carb diet. (8) DVT Px. Heparin SC Q12 hrs. DISPOSITION: Currently admitted under inpatient status. Plan is discharge home when medically improved. VS, I&O, 24H, Kriss Vital Signs/I&O Vital Signs Date Time Temp Pulse Resp B/P (MAP) Pulse Ox O2 Delivery O2 Flow Rate FiO2 09/01/19 18:37 118/84 (95) 09/01/19 16:00 98.7 99 18 100 Room Air I&O- Last 24 Hours up to 6 AM 09/01/19 06:00 Intake Total 0 ml Output Total 0 ml Balance 0 ml Laboratory Data 24H LABS Laboratory Tests 2 08/31/19 21:54: Troponin I 0.04# 09/01/19 05:14: Troponin I 0.02#, Anion Gap 6L, Glomerular Filtration Rate 5.4L, Estimated Mean Plasma Glucose 189H, Hemoglobin A1c 8.2, Calcium Level 11.1#H, Magnesium Level 2.9H, Total Bilirubin 0.6, Aspartate Amino Transf (AST/SGOT) 16, Alanine Aminotransferase (ALT/SGPT) 19, Alkaline Phosphatase 81, Total Protein 6.5, Albumin 3.3, Albumin/Globulin Ratio 1.03, Triglycerides Level 60, Total Cholesterol 193, LDL Cholesterol 54, Non-HDL Cholesterol (LDL + VLDL) 66, Total HDL Cholesterol 127, Cholesterol/HDL Ratio 1.519 09/01/19 10:39: Bedside Glucose (Misc Panel) 146H 09/01/19 12:17: Bedside Glucose (Misc Panel) 200H 09/01/19 15:57: Whole Blood Ionized Calcium 4.9 09/01/19 17:10: Bedside Glucose (Misc Panel) 173H 09/01/19 20:13: Bedside Glucose (Misc Panel) 175H CBC/BMP Laboratory Tests 09/01/19 05:14 Microbiology Microbiology 08/31/19 Gastrointestinal Tract Panel (PCR) - Final, Complete 08/31/19 Urine Culture, Received Pending Current Medications Current Medications Medications (Trade) Dose Ordered Sig/Don Route PRN Reason Start Time Stop Time Status Last Admin Dose Admin Acetaminophen (Tylenol Tab) 650 mg Q6HP PRN PO PAIN 08/31/19 16:30 09/01/19 17:27 Amlodipine Besylate (Norvasc) 10 mg DAILY PO 09/01/19 09:00 Calcitriol (Rocaltrol) 0.25 mcg DAILY PO 09/01/19 09:00 08/31/19 16:31 DC Calcium Acetate (Phoslo) 667 mg TID PO 08/31/19 21:00 08/31/19 16:31 DC Dextrose (Dextrose 50%) 25 ml ASDIRECTED PRN IV SEE LABEL COMMENTS 08/31/19 15:15 Enoxaparin Sodium (Lovenox) 30 mg DAILY@2100 SC 09/01/19 21:00 Enoxaparin Sodium (Lovenox) 40 mg DAILY SC 09/01/19 09:00 09/01/19 11:50 DC Famotidine (Pepcid) 10 mg QAM PO 09/01/19 09:00 09/01/19 08:03 Ferrous Sulfate (Ferrous Sulfate) 325 mg BID PO 08/31/19 21:00 09/01/19 12:28 DC 09/01/19 08:03 Glucagon (Glucagon) 1 mg ASDIRECTED PRN SC SEE LABEL COMMENTS 08/31/19 15:15 Glucose (Glucose) 16 GM ASDIRECTED PRN PO SEE LABEL COMMENTS 08/31/19 15:15 Home Med (Med Rec Complete!) ASDIRECTED XX 08/31/19 16:15 08/31/19 16:07 DC Hydralazine HCl (Apresoline) 10 mg Q6H PRN IV SBP >150 08/31/19 15:15 09/01/19 17:28 Hydralazine HCl (Apresoline) 10 mg STAT STAT IV 08/31/19 13:13 08/31/19 13:14 DC 08/31/19 13:50 Insulin Human Lispro (HumaLOG INSULIN) SEE PROTOCOL TABLE AC SC 08/31/19 17:30 09/01/19 17:24 Insulin Human Lispro (HumaLOG INSULIN) SEE PROTOCOL TABLE QHS SC 08/31/19 21:00 08/31/19 20:42 Labetalol HCl (Normodyne, Trandate) 20 mg STAT STAT IV 08/31/19 11:40 08/31/19 11:41 DC 08/31/19 12:04 Labetalol HCl (Normodyne, Trandate) 20 mg STAT STAT IV 08/31/19 12:10 08/31/19 12:11 DC 08/31/19 12:23 Levothyroxine Sodium (Synthroid) 25 mcg DAILY@0600 PO 09/01/19 06:00 09/01/19 04:25 Lorazepam (Ativan) 1 mg DAILY PRN PO ANXIETY 08/31/19 16:30 Lorazepam (Ativan) 1 mg Q6HP PRN IV ANXIETY/AGITATION 08/31/19 15:15 Lorazepam (Ativan) 2 mg STAT STAT IV 08/31/19 15:09 08/31/19 15:10 DC 08/31/19 10:57 Ondansetron HCl (ZOFRAN INJection) 4 mg Q4HP PRN IV NAUSEA OR VOMITING 08/31/19 15:30 09/01/19 08:08 Pantoprazole Sodium (Protonix) 40 mg Q24H IV 08/31/19 18:00 09/01/19 17:24 Piperacillin Sod/ Tazobactam Sod 2.25 gm/Dextrose 50 ml @ 100 mls/hr Q12H IV 08/31/19 15:30 08/31/19 17:54 DC Piperacillin Sod/ Tazobactam Sod 4.5 gm/Dextrose 50 ml @ 50 mls/hr Q12H IV 08/31/19 17:00 09/01/19 12:28 DC 09/01/19 04:25 Senna (Senokot) 1 tab BID PO 08/31/19 21:00 09/01/19 08:03 Sevelamer Carbonate (Renvela) 1,600 mg WM PO 08/31/19 18:00 09/01/19 17:24 Sodium Chloride (Saline Lock Flush) 2 ml ASDIRECTED PRN IV SEE LABEL COMMENTS 08/31/19 17:30 Sodium Chloride (Saline Lock Flush) 2 ml SLF IV 08/31/19 22:00 09/01/19 14:00 Sucroferric Oxyhydroxide (Velphoro) 500 mg WM PO 08/31/19 18:00 09/01/19 11:49 DC Allergies Coded Allergies: NSAIDS (Non-Steroidal Anti-Inflamma (Verified Adverse Reaction, Severe, Kidney Failure, 06/01/19) Bre Cruz MD September 01, 2019 20:27
[2019-09-01] MEDS ORDERED: ENOXAPARIN 30MG/0.3ML SYRINGE (J1650 PER 10MG) SC SCH (21:00)
[2019-09-01] MEDS: HEPARIN SOD (PORCINE) 5000UNITS/ML VIAL (J1644 PER 1000UNITS) SQ SCH (21:00)
[2019-09-01] MEDS ORDERED: LOPERAMIDE 2 MG CAPLET PO ONE (23:15)
[2019-09-02] VITALS (7 sets, daily range): BP systolic 130–170; BP diastolic 90–110
[2019-09-02] MEDS: hydrALAZINE 20MG/ML 1ML VIAL (J0360 PER 20MG) IV PRN (05:32)
[2019-09-02] MEDS: LEVOTHYROXINE 25MCG TABLET (0.025MG) PO SCH (05:42)
[2019-09-02] MEDS: SLF 3 ML SYR IV SCH ×2 (05:42→13:03)
[2019-09-02 05:51] LABS: HEMATOCRIT 30.9 % (36.0-47.0); HEMOGLOBIN 10.5 g/dl (12.0-15.5); PLATELET COUNT, AUTOMATED 328 10^3/uL (150-450); RED BLOOD COUNT 3.09 10^6/uL (4.00-5.40); WHITE BLOOD COUNT 8.9 10^3/uL (4.0-10.0)
[2019-09-02 06:22] LABS: ALBUMIN 3.1 GM/DL (3.2-5.2); BILIRUBIN,TOTAL 0.5 MG/DL (0.2-1.0); CALCIUM LEVEL 9.6 MG/DL (8.5-10.1); CREATININE FOR GFR 6.15 MG/DL (0.55-1.30); GLOMERULAR FILTRATION RATE 8.6 (>60); POTASSIUM SERUM 4.9 MEQ/L (3.5-5.1); TOTAL PROTEIN 6.1 GM/DL (6.4-8.2)
[2019-09-02] MEDS: FAMOTIDINE 20 MG TAB PO SCH (08:23)
[2019-09-02] MEDS: SENNA 8.6 MG TAB (SENOKOT) PO SCH ×2 (08:24→21:00)
[2019-09-02] MEDS: (RENVELA) SEVELAMER **CARBONate** 800 MG TAB PO SCH ×3 (08:24→17:22)
[2019-09-02] MEDS: ACETAMINOPHEN TAB 650MG DOSE (2X325MG) PO PRN ×2 (08:25→14:34)
[2019-09-02] MEDS: HumaLOG INSULIN (NovoLOG) PER UNIT SC SCH ×4 (08:26→21:00)
[2019-09-02] MEDS: amLODIPine 10 MG TAB PO SCH (08:28)
[2019-09-02] MEDS: HEPARIN SOD (PORCINE) 5000UNITS/ML VIAL (J1644 PER 1000UNITS) SQ SCH ×3 (08:28→21:00)
[2019-09-02] MEDS: CARVedilol 3.125 MG TAB PO SCH ×2 (13:02→21:14)
[2019-09-02] MEDS: LOPERAMIDE 2 MG CAPLET PO PRN ×2 (13:02→21:13)
[2019-09-02] MEDS: LevoFLOXacin 250 MG TABLET PO SCH (13:02)
[2019-09-02] MEDS: MAGIC MOUTHWASH SUSPENSION BTL SSP PRN ×2 (16:43→21:13)
[2019-09-02] MEDS: PANTOPRAZOLE 40MG VIAL (C9113 PER 1) IV SCH (17:22)
[2019-09-02] MEDS ORDERED: LORazepam 1 MG TAB PO PRN (18:45)
--- NOTE | 2019-09-02 18:47 | IPNPDOC ---
Date Seen The patient was seen on 09/02/19. Progress Note SUBJECTIVE: BP still elevated at 140/100, started on carvedilol BID with holding paramters. No seizure activity. Denies chest pain, n/v/d, shortness of breath. OBJECTIVE: VITAL SIGNS: Please see below PHYSICAL EXAMINATION: CONSTITUTIONAL: No acute distress, resting comfortably, AAO x 3 EYES: PERRLA, EOM intact HENT, MOUTH: Normocephalic, atraumatic, moist mucous membranes NECK: SUPPLE, no JVD, no lymphadenopathy, no carotid bruit CV: Regular rate and rhythm, S1S2 normal, no murmurs/rubs/gallops CHEST: Port in right upper chest RESPIRATORY: Clear to auscultation bilaterally, no rales/rhonchi/wheezes GI: BS positive in 4 quadrants, soft, nontender, nondistended, no rebound or guarding, no organomegaly : Deferred MUSCULOSKELETAL: Normal ROM. No cyanosis, clubbing, swelling, joint deformity, extremity edema INTEGUMENTARY: Intact, no rashes, no lesions, no erythema NEUROLOGIC: Cranial Nerves II-XII are intact, no focal deficits PSYCHIATRIC: Mood and affect are normal CURRENT MEDICATIONS: Please see below LABORATORY DATA: Please see below IMAGING: None ASSESSMENT: 29 y/o F admitted for hypertensive emergency, new-onset seizure. PLAN: (1) Uncontrolled HTN. BP 140/100. Started on carvedilol BID with holding parameters. C/w amlodipine at current dose. (2) New onset seizure possbily 2/2 to hypercalcemia from ESRD vs. supplementation. No new seizures overnight. Calcium wnl today and will keep off all supplementation. (3) ESRD (end stage renal disease). HD tomorrow. Nephrology following. (4) UTI, E. faecalis. Started on levofloxacin (Day 1 of 3) (5) Hypercalcemia, likely iatrogenic. Calcium now normal. F/u daily calcium level. (6) Hypothyroidism. Continue current dose of levothyroxine 25 mcg by mouth daily. (7) Diabetes mellitus type I. BS controlled. Restarted insulin glargine HS. C/w fingerstick blood sugar every before meals and at bedtime with coverage, consistent carb diet. (8) DVT Px. Heparin SC Q12 hrs. DISPOSITION: Currently admitted under inpatient status. Plan is discharge home when BP better controlled. If tomorrow, after dialysis. VS, I&O, 24H, Fishbone Vital Signs/I&O Vital Signs Date Time Temp Pulse Resp B/P (MAP) Pulse Ox O2 Delivery O2 Flow Rate FiO2 09/02/19 13:02 99 148/100 09/02/19 12:00 97.1 17 98 Room Air I&O- Last 24 Hours up to 6 AM 09/02/19 06:00 Intake Total 1130 ml Output Total 1300 ml Balance -170 ml Laboratory Data 24H LABS Laboratory Tests 2 09/01/19 20:13: Bedside Glucose (Misc Panel) 175H 09/02/19 05:21: Nucleated Red Blood Cells % (auto) 0.0, Anion Gap 6L, Glomerular Filtration Rate 8.6L, Calcium Level 9.6, Whole Blood Ionized Calcium 5.0, Total Bilirubin 0.5, Aspartate Amino Transf (AST/SGOT) 11, Alanine Aminotransferase (ALT/SGPT) 19, Alkaline Phosphatase 78, Total Protein 6.1L, Albumin 3.1L, Albumin/Globulin Ratio 1.03 09/02/19 11:17: Bedside Glucose (Misc Panel) 263H 09/02/19 16:46: Bedside Glucose (Misc Panel) 332H CBC/BMP Laboratory Tests 09/02/19 05:21 Microbiology Microbiology 08/31/19 Gastrointestinal Tract Panel (PCR) - Final, Complete 08/31/19 Urine Culture - Final, Complete Enterococcus Faecalis Current Medications Current Medications Medications (Trade) Dose Ordered Sig/Don Route PRN Reason Start Time Stop Time Status Last Admin Dose Admin Acetaminophen (Tylenol Tab) 650 mg Q6HP PRN PO PAIN 08/31/19 16:30 09/02/19 14:34 Amlodipine Besylate (Norvasc) 10 mg DAILY PO 09/01/19 09:00 09/02/19 08:28 Calcitriol (Rocaltrol) 0.25 mcg DAILY PO 09/01/19 09:00 08/31/19 16:31 DC Calcium Acetate (Phoslo) 667 mg TID PO 08/31/19 21:00 08/31/19 16:31 DC Carvedilol (COReg) 3.125 mg BID PO 09/02/19 09:00 09/02/19 13:02 Dextrose (Dextrose 50%) 25 ml ASDIRECTED PRN IV SEE LABEL COMMENTS 08/31/19 15:15 Enoxaparin Sodium (Lovenox) 30 mg DAILY@2100 SC 09/01/19 21:00 09/01/19 20:35 DC Enoxaparin Sodium (Lovenox) 40 mg DAILY SC 09/01/19 09:00 09/01/19 11:50 DC Famotidine (Pepcid) 10 mg QAM PO 09/01/19 09:00 09/02/19 08:23 Ferrous Sulfate (Ferrous Sulfate) 325 mg BID PO 08/31/19 21:00 09/01/19 12:28 DC 09/01/19 08:03 Glucagon (Glucagon) 1 mg ASDIRECTED PRN SC SEE LABEL COMMENTS 08/31/19 15:15 Glucose (Glucose) 16 GM ASDIRECTED PRN PO SEE LABEL COMMENTS 08/31/19 15:15 Heparin Sodium (Porcine) (Heparin) 5,000 units Q12H SQ 09/01/19 21:00 Home Med (Med Rec Complete!) ASDIRECTED XX 08/31/19 16:15 08/31/19 16:07 DC Hydralazine HCl (Apresoline) 10 mg Q6H PRN IV SBP >150 08/31/19 15:15 09/02/19 05:32 Hydralazine HCl (Apresoline) 10 mg STAT STAT IV 08/31/19 13:13 08/31/19 13:14 DC 08/31/19 13:50 Insulin Detemir (Levemir Insulin) 5 units QHS SC 09/02/19 21:00 Insulin Human Lispro (HumaLOG INSULIN) SEE PROTOCOL TABLE AC SC 08/31/19 17:30 09/02/19 17:23 Insulin Human Lispro (HumaLOG INSULIN) SEE PROTOCOL TABLE QHS SC 08/31/19 21:00 08/31/19 20:42 Labetalol HCl (Normodyne, Trandate) 20 mg STAT STAT IV 08/31/19 11:40 08/31/19 11:41 DC 08/31/19 12:04 Labetalol HCl (Normodyne, Trandate) 20 mg STAT STAT IV 08/31/19 12:10 08/31/19 12:11 DC 08/31/19 12:23 Levofloxacin (Levaquin) 250 mg DAILY@06 PO 09/02/19 06:00 09/07/19 05:59 09/02/19 13:02 Levothyroxine Sodium (Synthroid) 25 mcg DAILY@0600 PO 09/01/19 06:00 09/02/19 05:42 Lidocaine/ Diphenhydr/Alum/ Mg/Simeth (Magic Mouthwash) 5ML TIDP PRN SSP DISCOMFORT 09/02/19 12:45 09/02/19 16:43 Loperamide HCl (Imodium) 2 mg Q6HP PRN PO DIARRHEA 09/02/19 12:45 09/02/19 13:02 Lorazepam (Ativan) 1 mg DAILY PRN PO ANXIETY 08/31/19 16:30 Lorazepam (Ativan) 1 mg Q6HP PRN IV ANXIETY/AGITATION 08/31/19 15:15 Lorazepam (Ativan) 2 mg STAT STAT IV 08/31/19 15:09 08/31/19 15:10 DC 08/31/19 10:57 Ondansetron HCl (ZOFRAN INJection) 4 mg Q4HP PRN IV NAUSEA OR VOMITING 08/31/19 15:30 09/01/19 08:08 Pantoprazole Sodium (Protonix) 40 mg Q24H IV 08/31/19 18:00 09/02/19 17:22 Piperacillin Sod/ Tazobactam Sod 2.25 gm/Dextrose 50 ml @ 100 mls/hr Q12H IV 08/31/19 15:30 08/31/19 17:54 DC Piperacillin Sod/ Tazobactam Sod 4.5 gm/Dextrose 50 ml @ 50 mls/hr Q12H IV 08/31/19 17:00 09/01/19 12:28 DC 09/01/19 04:25 Senna (Senokot) 1 tab BID PO 08/31/19 21:00 09/01/19 08:03 Sevelamer Carbonate (Renvela) 1,600 mg WM PO 08/31/19 18:00 09/02/19 17:22 Sodium Chloride (Saline Lock Flush) 2 ml ASDIRECTED PRN IV SEE LABEL COMMENTS 08/31/19 17:30 Sodium Chloride (Saline Lock Flush) 2 ml SLF IV 08/31/19 22:00 09/02/19 13:03 Sucroferric Oxyhydroxide (Velphoro) 500 mg WM PO 08/31/19 18:00 09/01/19 11:49 DC Allergies Coded Allergies: NSAIDS (Non-Steroidal Anti-Inflamma (Verified Adverse Reaction, Severe, Kidney Failure, 06/01/19) Bre Cruz MD September 02, 2019 18:47
[2019-09-02] MEDS ORDERED: LEVEMIR (INSULIN DETEMIR) 1 UNITS/0.01ML SC SCH (21:00)
[2019-09-03] VITALS: BP 160/100
[2019-09-03] MEDS: ACETAMINOPHEN TAB 650MG DOSE (2X325MG) PO PRN ×2 (03:34→12:55)
[2019-09-03] MEDS: LOPERAMIDE 2 MG CAPLET PO PRN ×2 (03:34→08:07)
[2019-09-03] MEDS: LEVOTHYROXINE 25MCG TABLET (0.025MG) PO SCH (03:35)
[2019-09-03 03:45] VITALS: BP 168/100
[2019-09-03 05:57] LABS: HEMATOCRIT 28.3 % (36.0-47.0); HEMOGLOBIN 9.8 g/dl (12.0-15.5); MEAN CORPUSCULAR HEMOGLOBIN 33.8 pg (27.0-33.0); MEAN CORPUSCULAR HGB CONC 34.6 g/dl (32.0-36.5); MEAN CORPUSCULAR VOLUME 97.6 fl (80.0-96.0); PLATELET COUNT, AUTOMATED 324 10^3/uL (150-450); WHITE BLOOD COUNT 7.2 10^3/uL (4.0-10.0)
[2019-09-03 06:36] LABS: ALBUMIN 2.8 GM/DL (3.2-5.2); BILIRUBIN,TOTAL 0.4 MG/DL (0.2-1.0); CALCIUM LEVEL 9.2 MG/DL (8.5-10.1); CREATININE FOR GFR 8.07 MG/DL (0.55-1.30); GLOMERULAR FILTRATION RATE 6.3 (>60); POTASSIUM SERUM 5.2 MEQ/L (3.5-5.1); TOTAL PROTEIN 5.7 GM/DL (6.4-8.2)
--- NOTE | 2019-09-03 07:04 | IPN ---
DATE: 09/02/2019 SUBJECTIVE: Patient was seen and examined at the bedside today morning. Patient is afebrile, hemodynamically stable. She reports that she is feeling better today. 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 She was dialyzed yesterday. She tolerated the hemodialysis procedure well. OBJECTIVE: Vital signs: Temperature is 97.1 degrees Fahrenheit, blood pressure 148/100, pulse is 99, respiratory rate of 17, saturating 98% on room air. Intake and output: Ultrafiltration with hemodialysis was 1 liter yesterday. Weight on the bed scale is stable at 44 kg. PHYSICAL EXAMINATION: General: Patient is awake, alert, oriented times three, laying in bed, in no apparent distress. Head and neck exam: Extraocular muscles intact. Pupils are equally round and reactive to light. Mucous membranes are moist. Neck is supple. There is no jugular venous distention (JVD). She has a right internal jugular (IJ) tunneled hemodialysis catheter. Cardiovascular: S1, S2, regular rate. No edema of the bilateral lower extremities. Respiratory: Chest is clear to auscultation bilaterally. Bilateral equal air entry. No rales or rhonchi. Abdomen: Soft. Positive bowel sounds. Nontender. No organomegaly. Musculoskeletal: No clubbing or cyanosis. Pulses are 2+. Central nervous system (PLASTIC SURGERY ASSISTANT): No focal deficit. Power is 5/5 in all extremities. LAB REVIEW: CBC showed WBC 8.9, hemoglobin 10.5, platelets are 328. BMP showed sodium 133, potassium 4.9, chloride 96, bicarbonate 31, BUN 22, creatinine is 6.1. Calcium has improved to 9.6 today. Albumin is 3.1. Urine culture came back positive for Enterococcus faecalis, more than 100,000 colonies. CURRENT INPATIENT MEDICATIONS: Patient's medications were all reviewed by myself. She has been started on Coreg 3.125 mg by mouth twice a day, and I have also started her on Levaquin 250 mg by mouth daily. No other change in the medications today as compared with yesterday. ASSESSMENT AND PLAN: 1. End-stage renal disease. Patient was dialyzed yesterday. She tolerated the procedure well. Next hemodialysis will be done tomorrow morning. 2. Hypertensive urgency. Patient's blood pressure is better optimized now. Continue current dose of amlodipine 10 mg daily. She needed a dose of hydralazine, so I have started the patient on Coreg 3.15 mg by mouth twice a day. 3. Hypercalcemia. Calcium level is improved now. Avoid use of calcitriol or calcium-based binders. 4. Urinary tract infection. Patient was given Zosyn on arrival. I have started her on Levaquin 250 mg by mouth daily. 5. Diabetes mellitus type 1. Continue current dose of insulin. 6. Disposition. Hopefully, if patient's blood pressure stays stable, she should be able to be discharged after dialysis tomorrow afternoon.
[2019-09-03 08:00] VITALS: BP 161/107
[2019-09-03] MEDS: (RENVELA) SEVELAMER **CARBONate** 800 MG TAB PO SCH ×3 (08:06→17:00)
[2019-09-03] MEDS: LevoFLOXacin 250 MG TABLET PO SCH (08:07)
[2019-09-03] MEDS: CARVedilol 3.125 MG TAB PO SCH (08:07)
[2019-09-03] MEDS: amLODIPine 10 MG TAB PO SCH (08:07)
[2019-09-03] MEDS: HumaLOG INSULIN (NovoLOG) PER UNIT SC SCH ×3 (08:08→16:57)
[2019-09-03] MEDS: SENNA 8.6 MG TAB (SENOKOT) PO SCH (08:09)
[2019-09-03] MEDS: HEPARIN SOD (PORCINE) 5000UNITS/ML VIAL (J1644 PER 1000UNITS) SQ SCH (08:09)
[2019-09-03] MEDS ORDERED: CARVedilol 3.125 MG TAB PO ONE (08:45)
[2019-09-03] MEDS ORDERED: FAMOTIDINE 20 MG TAB PO SCH (09:00)
[2019-09-03 13:04] VITALS: BP 156/100
[2019-09-03 13:24] VITALS: BP 156/100
[2019-09-03] MEDS: MAGIC MOUTHWASH SUSPENSION BTL SSP PRN (13:25)
[2019-09-03] MEDS ORDERED: CARV6.25 PO (13:50)
--- NOTE | 2019-09-03 15:23 | DS.PDOC ---
Discharge Summary General Date of Admission August 31, 2019 at 15:08 Date of Discharge 09/03/19 Primary Care Physician: LETICIA HOLLEY NP Attending Physician: Bre Cruz MD Specialist/Consultants Involve: JI LI MD Discharge Summary HISTORY OF PRESENT ILLNESS: Patient is a 29 years old white female with past medical history of binge eating disorder, bulimia nervosa, rheumatoid arthritis, herpes simplex, type 1 diabetes mellitus, anemia, vitamin D deficiency, end-stage renal disease on hemodialysis, and Saturdays was brought to ER by ambulance as patient's father were unable to wake her up in a. In the ER. As per records, patient said she woke up fine this morning, but she laid back and then she had a hard time. He cannot when she woke up she had nausea, vomiting and also in ED, patient possibly had as tonic-clonic seizure and was given Ativan 2 mg. I'm unable to obtain history from patient as she is sedated secondary to Ativan. History was obtained from [facility] records and and reviews patient's outpatient records from rheumatology clinic. HOSPITAL COURSE: Patient had no additional seizure activity after admission. Calcium elevated >13 on admission, Vit D supplement and calcium binders stopped. Nephrology followed closely. She underwent 2 additional sessions of HD without issues. BP remained high, carvedilol BID added to amlodipine 10 mg daily. By day of discharge, calcium was normalized and, although BP still slightly elevated, decision was made to discharge. Discussed with nephrology and they will f/u in office. She will be discharged with 2 additional days of levofloxacin for E. faecalis UTI. ROS neg as below. REVIEW OF SYSTEMS: CONSTITUTIONAL: Denies lack of energy, unexplained weight gain or weight loss, loss of appetite, fever, night sweats EYES: Denies eye drainage, eye pain, visual changes, dry/irritated eye EARS, NOSE, MOUTH, THROAT: Denies difficulty hearing, ringing in ears, mouth sores, loose teeth, sore throat, facial numbness or pain NECK: Denies swollen glands CARDIOVASCULAR: Denies irregular heartbeat, racing heart, chest pains, swelling of feet or legs, pain in legs with walking RESPIRATORY: Denies shortness of breath, night sweats, wheezing, sputum p roduction, oxygen at home, coughing up blood, cough lasting > 1 month GASTROINTESTINAL: Denies abdominal pain, constipation, bloody stool, diarrhea, heartburn, nausea, vomiting GENITOURINARY: Denies painful urination, bloody urine, frequent urination, urgency, leaking urine, impotence MUSCULOSKELETAL: Denies joint pain, muscle pain, leg swelling INTEGUMENTARY: Denies rash, itching, new skin lesion, change in existing skin lesion, hair loss or increase, breast changes. NEUROLOGICAL: Denies headaches, dizziness, difficulty walking, numbness or tingling PSYCHIATRIC: Denies depression, anxiety, recurrent bad thoughts, mood swings, hallucinations PAST MEDICAL HISTORY: Binge eating disorder Bulimia nervosa Rheumatoid arthritis Herpes simplex type 1 Diabetes mellitus type I Anemia Vitamin D deficiency End-stage renal disease on hemodialysis PAST SURGICAL HISTORY: EGD Colonoscopy Renal biopsy with nephritis 2019 Vas Cath placement in right upper chest Family History Father and mother both alive with no medical problems. One sister has type 1 diabetes mellitus Social History * Smoker: Denies Alcohol: Denies Drugs: denies ALLERGIES: Please see below. DISCHARGE MEDICATIONS: Please see below. PHYSICAL EXAMINATION: CONSTITUTIONAL: No acute distress, resting comfortably, AAO x 3 EYES: PERRLA, EOM intact HENT, MOUTH: Normocephalic, atraumatic, moist mucous membranes NECK: SUPPLE, no JVD, no lymphadenopathy, no carotid bruit CV: Regular rate and rhythm, S1S2 normal, no murmurs/rubs/gallops CHEST: Vas Cath in right upper chest RESPIRATORY: Clear to auscultation bilaterally, no rales/rhonchi/wheezes GI: BS positive in 4 quadrants, soft, nontender, nondistended, no rebound or guarding, no organomegaly : Deferred MUSCULOSKELETAL: Normal ROM. No cyanosis, clubbing, swelling, joint deformity, extremity edema INTEGUMENTARY: Intact, no rashes, no lesions, no erythema NEUROLOGIC: Cranial Nerves II-XII are intact, no focal deficits PSYCHIATRIC: Mood and affect are normal CURRENT MEDICATIONS: Please see below LABORATORY DATA: Please see below IMAGING: Please see all under transcriptions ASSESSMENT: 29 y/o F admitted for hypertensive emergency, new onset seizure. PLAN: (1) Uncontrolled HTN. BP 140/100. C/w carvedilol BID with holding parameters, amlodipine at current dose. Hypertensive emergency on admission likely 2/2 to hy percalcemia. (2) New onset seizure possbily 2/2 to hypercalcemia from ESRD vs. supplementation. No new seizures. Calcium wnl currently. Keep off calcium-based binders, vitamin D, and vitamin D analogs. (3) ESRD (end stage renal disease). HD tomorrow. Nephrology following. (4) UTI, E. faecalis. Treated with levofloxacin, continue 2 additional days. (5) Hypercalcemia, likely iatrogenic. Calcium now normal. Do not use calcium- based binders, vitamin D, and vitamin D analogs. PCP, nephro to f/u calcium level as outpatient. (6) Hypothyroidism. Continue current dose of levothyroxine 25 mcg by mouth daily. (7) Diabetes mellitus type I. BS controlled. C/w home meds, consistent carb diet. DISPOSITION: Discharged home in improved condition, f/u with PCP and nephrology as scheduled. TIME SPENT ON DISCHARGE: 35 minutes. Vital Signs/I&Os Vital Signs Date Time Temp Pulse Resp B/P (MAP) Pulse Ox O2 Delivery O2 Flow Rate FiO2 09/03/19 13:24 97 156/100 09/03/19 13:04 98.0 18 100 Room Air I&O- Last 24 Hours up to 6 AM 09/03/19 06:00 Intake Total 960 ml Balance 960 ml Laboratory Data Labs 24H Laboratory Tests 2 09/02/19 16:46: Bedside Glucose (Misc Panel) 332H 09/02/19 21:18: Bedside Glucose (Misc Panel) 198H 09/03/19 05:20: Nucleated Red Blood Cells % (auto) 0.0, Anion Gap 8, Glomerular Filtration Rate 6.3L, Calcium Level 9.2, Total Bilirubin 0.4, Aspartate Amino Transf (AST/SGOT) 8, Alanine Aminotransferase (ALT/SGPT) 25, Alkaline Phosphatase 69, Total Protein 5.7L, Albumin 2.8L, Albumin/Globulin Ratio 0.97L 09/03/19 12:45: Bedside Glucose (Misc Panel) 149H CBC/BMP Laboratory Tests 09/03/19 05:20 FSBS Laboratory Tests Test 09/02/19 16:46 09/02/19 21:18 09/03/19 12:45 Range/Units Bedside Glucose (Misc Panel) 332 198 149 70-105 MG/DL Microbiology Microbiology 08/31/19 Gastrointestinal Tract Panel (PCR) - Final, Complete 08/31/19 Urine Culture - Final, Complete Enterococcus Faecalis Discharge Medications Scheduled Amlodipine Besylate (Amlodipine Besylate) 10 Mg Tablet, 10 MG PO DAILY, (Reported) Carvedilol (Carvedilol) 6.25 Mg Tablet, 6.25 MG PO BID Famotidine (Famotidine) 20 Mg Tablet, 20 MG PO DAILY, (Reported) Ferrous Sulfate (Ferrous Sulfate) 325 Mg Tablet, 325 MG PO BID, (Reported) Folic Acid/Vit B Complex and C (Ginny-Elvie Tablet) 0.8 Mg Tablet, 0.8 MG PO DAILY, (Reported) Hydroxychloroquine Sulfate (Hydroxychloroquine Sulfate) 200 Mg Tablet, 200 MG PO BID, (Reported) Insulin Glargine,Hum.rec.anlog (Basaglar Kwikpen U-100) 100 Unit/1 Ml Insuln.pen, 5 UNIT SC QHS, (Reported) Insulin Lispro (Admelog Solostar) 100 Unit/1 Ml Insuln.pen, 1 DOSE SC AC, (Reported) SLIDING SCALE BASED ON CARB INTAKE Levothyroxine Sodium (Levothyroxine Sodium) 25 Mcg Tablet, 25 MCG PO DAILY, (Reported) Sevelamer Carbonate (Sevelamer Carbonate) 800 Mg Tablet, 1,600 MG PO WM, (Reported) Scheduled PRN Acetaminophen (Tylenol) 325 Mg Tablet, 650 MG PO Q6HP PRN for PAIN, (Reported) Lorazepam (Lorazepam) 1 Mg Tablet, 1 MG PO DAILY PRN for ANXIETY, (Reported) TAKE ONE TABLET PRN BEFORE DIALYSIS Allergies Coded Allergies: NSAIDS (Non-Steroidal Anti-Inflamma (Verified Adverse Reaction, Severe, Kidney Failure, 06/01/19) Bre Cruz MD September 03, 2019 15:23
[2019-09-03 16:00] VITALS: BP 139/101
[2019-09-03] MEDS ORDERED: LEVO250T12 PO (16:45)
[2019-09-03] MEDS ORDERED: CARVedilol 6.25 MG TAB PO SCH (21:00)
[2019-09-03] MEDS ORDERED: CARVedilol 3.125 MG TAB PO SCH (21:00)
--- NOTE | 2019-09-04 06:25 | IPN ---
DATE OF SERVICE: 09/03/2019 SUBJECTIVE: The patient was seen and examined at the bedside today morning during hemodialysis. She is tolerating the hemodialysis procedure well and blood pressures are better controlled now. She denies any active complaints. OBJECTIVE: Vital Signs: Temperature is 98 degrees Fahrenheit, blood pressure 156/100, pulse is 97, respiratory rate of 18, saturating 100% on room air. Intake and Output. There is no urine output recorded. Weight in the bed scale was 44 kg yesterday. PHYSICAL EXAMINATION: General: The patient is awake, alert, oriented x3, laying in bed, in no apparent distress. Head and Neck Exam: Extraocular muscles intact. Pupils equally round and reactive to light. Mucous membranes are moist. Neck is supple. There is no jugular venous distention (JVD). She has a right internal jugular (IJ) tunneled hemodialysis catheter. Cardiovascular: S1, S2, regular rate. No edema of the bilateral lower extremities. Respiratory: Chest is clear to auscultation bilaterally. Bilateral equal air entry. No rales or rhonchi. Abdomen: Soft. Positive bowel sounds. Nontender. No organomegaly. Musculoskeletal: No clubbing or cyanosis. Pulses are 2+. LAB REVIEW: CBC showed a WBC of 7.2, hemoglobin 9.8, platelets 324. BMP showed sodium 132, potassium 5.2, chloride 95, bicarb 29, BUN 36, creatinine is 8, calcium 9.2, albumin is 2.8. CURRENT INPATIENT MEDICATIONS: The patient's medications were all reviewed by myself. Her carvedilol dose has been increased to 6.25 mg by mouth twice a day. IV hydralazine has been stopped. No other change in the medications today as compared with yesterday. ASSESSMENT/PLAN: 1. End-stage renal disease. The patient is being dialyzed today. Ultrafiltration goal will be 1 liter. 2. Hypertension with end-stage renal disease. The patient's blood pressures are still elevated. Her carvedilol dose was increased to 6.25 mg by mouth twice a day. She continues to be amlodipine. Further adjustment in the antihypertensive regimen will be done as outpatient. 3. Hypercalcemia. It is resolved now. 4. Urinary tract infection. The patient is currently on Levaquin which covers Enterococcus faecalis infection. She should continue at least 5 days of Levaquin. 5. Diabetes mellitus type 1. Continue the insulin regimen. 6. Disposition. The patient is optimized from a nephrology standpoint to be discharged home. She will be followed up as outpatient at the dialysis center.
== END 2019-09-03 17:00 | disposition home or self-care (01) | DRG 640 ==
LOC: M ED 10:16 → M ED INP 15:08 → ENRESERV 15:35 → M PCU 16:24
PROVIDERS: ADMIT Internal Medicine; ATTEND Internal Medicine
PROC: 5A1D70Z Performance of Urinary Filtration, Intermittent, Less than 6 Hours Per Day (ICD-10-PCS; principal; 2019-09-01)
DX: E83.52 Hypercalcemia (principal); N18.6 End stage renal disease; I12.0 Hypertensive chronic kidney disease with stage 5 chronic kidney disease or end stage renal disease; I16.1 Hypertensive emergency; N39.0 Urinary tract infection, site not specified; E10.22 Type 1 diabetes mellitus with diabetic chronic kidney disease; R56.9 Unspecified convulsions; M06.9 Rheumatoid arthritis, unspecified; E03.9 Hypothyroidism, unspecified; B00.9 Herpesviral infection, unspecified; B95.2 Enterococcus as the cause of diseases classified elsewhere; D63.1 Anemia in chronic kidney disease; Z99.2 Dependence on renal dialysis; Z79.4 Long term (current) use of insulin; Z79.899 Other long term (current) drug therapy; Z88.6 Allergy status to analgesic agent; Z83.3 Family history of diabetes mellitus; Z86.59 Personal history of other mental and behavioral disorders

== ENCOUNTER → 2019-09-24 | Outpatient (REF) | payer MEDICARE, OTHER ==
[~2019-09-24] MED LIST changes: +ACET-907 PO; +AMLO1TAB25 PO; +CALC1CAP PO; +CARV6.25 PO; +FAMO20TA PO; +HUMI40KI SC; +HYDR200T3 PO; +LEVO250T12 PO; +LORA1TAB4 PO; +RENATAB5 PO; +VELP5CHW PO
[2019-09-25 11:55] LABS: CLOSTRIDIUM DIFFICILE PCR NEGATIVE (NEGATIVE)
== END ==
LOC: M LAB REF 10:21
PROVIDERS: ATTEND Internal Medicine Gastroenterology
DX: R19.7 Diarrhea, unspecified (principal)

== ENCOUNTER → 2019-09-25 | Outpatient (CLI) | payer MEDICARE, OTHER ==
--- NOTE | 2019-09-25 09:34 | REP ---
CT ABDOMEN WITHOUT CONTRAST: CT abdomen performed without IV contrast. Sagittal and coronal reconstruction images are performed. The visualized lung bases are clear. The liver, gallbladder, spleen, adrenals, pancreas and kidneys are grossly unremarkable. No radiopaque gallstones are seen. No renal stones are seen. The adrenal glands are normal. There is no hydronephrosis. There is no abdominal aortic aneurysm. I see no adenopathy. There is no free air or free fluid. No gross bowel abnormality is seen. IMPRESSION: Negative CT abdomen without contrast. Electronically Signed by Charlie Farnsworth MD 09/25/2019 10:10 A
== END ==
LOC: M RAD 07:23
PROVIDERS: ATTEND Nurse Practitioner Family
DX: E83.52 Hypercalcemia (principal); I15.0 Renovascular hypertension

== ENCOUNTER → 2019-10-12 | Outpatient (CLI) | payer MEDICARE, OTHER ==
[~2019-10-12] MED LIST changes: +AMLO10TA5 PO; -AMLO1TAB25 PO
[2019-10-16 15:07] LABS: DOPAMINE PLASMA 65 pg/mL (0-48); EPINEPHRINE PLASMA <15 pg/mL (0-62); NOREPINEPHRINE PLASMA 199 pg/mL (0-874)
== END ==
LOC: M LAB 09:15
PROVIDERS: ATTEND Nurse Practitioner Family
DX: I16.1 Hypertensive emergency (principal)

== ENCOUNTER → 2019-10-14 | Outpatient (REF) | payer MEDICARE, OTHER ==
[2019-10-22 00:07] LABS: CALPROTECTIN STOOL <16 ug/g (0-120); PANCREATIC ELASTASE STOOL 465 (>200)
[2019-10-23 07:01] LABS: CHYMOTRYPSIN, STOOL 4.6 U/g (2.30-51.40)
== END ==
LOC: M LAB REF 13:05
PROVIDERS: ATTEND Internal Medicine Gastroenterology
DX: A04.72 Enterocolitis due to Clostridium difficile, not specified as recurrent (principal); K59.1 Functional diarrhea; E73.9 Lactose intolerance, unspecified; K21.0 Gastro-esophageal reflux disease with esophagitis; Z86.010 Personal history of colon polyps

== ENCOUNTER → 2019-12-25 | Outpatient (CLI) | payer MEDICARE, OTHER ==
[~2019-12-25] MED LIST changes: -AMLO10TA5 PO; +AMLO1TAB25 PO
[2019-12-25 12:52] LABS: BASO # 0.1 10^3/uL (0.0-0.2); BASO % 0.8 % (0.0-1.0); EOS # 0.2 10^3/uL (0.0-0.5); EOS % 3.1 % (0.0-3.0); HEMATOCRIT 25.1 % (36.0-47.0); HEMOGLOBIN 8.4 g/dl (12.0-15.5); LYMPH # 1.4 10^3/uL (1.5-5.0); LYMPH % 23.1 % (24.0-44.0); MEAN CORPUSCULAR HEMOGLOBIN 35.1 pg (27.0-33.0); MEAN CORPUSCULAR HGB CONC 33.5 g/dl (32.0-36.5); MONO # 0.4 10^3/uL (0.0-0.8); MONO % 5.8 % (0.0-5.0); NEUTROPHILS % 66.9 % (36.0-66.0); PLATELET COUNT, AUTOMATED 450 10^3/uL (150-450); RED BLOOD COUNT 2.39 10^6/uL (4.00-5.40); WHITE BLOOD COUNT 6.1 10^3/uL (4.0-10.0)
[2019-12-25 13:14] LABS: ALBUMIN 3.6 GM/DL (3.2-5.2); CALCIUM LEVEL 10.2 MG/DL (8.5-10.1); CREATININE FOR GFR 1.22 MG/DL (0.55-1.30); GLOMERULAR FILTRATION RATE 55.5 (>60); MAGNESIUM LEVEL 1.9 MG/DL (1.8-2.4); PHOSPHORUS LEVEL 2.8 MG/DL (2.5-4.9); POTASSIUM SERUM 4.8 MEQ/L (3.5-5.1)
[2019-12-25 13:26] LABS: APPEARANCE, URINE CLEAR (CLEAR); BACTERIA, URINE AUTO NEGATIVE (NEGATIVE); BILIRUBIN, URINE AUTO NEGATIVE (NEGATIVE); BLOOD, URINE BLOOD NEGATIVE (NEGATIVE); CALCIUM OXALATE CRYSTALS SMALL; COLOR, URINE YELLOW (YELLOW); GLUCOSE, URINE (UA) AUTO 3+ mg/dL (NEGATIVE); KETONE, URINE AUTO NEGATIVE (NEGATIVE); LEUKOCYTE ESTERASE, URINE AUTO TRACE (NEGATIVE); MUCUS, URINE SMALL (NEGATIVE); NITRITE, URINE AUTO NEGATIVE (NEGATIVE); PROTEIN, URINE AUTO NEGATIVE (NEGATIVE); RBC, URINE AUTO 2 /HPF (0-3); SPECIFIC GRAVITY URINE AUTO 1.008 (1.002-1.035); SQUAMOUS EPITHELIAL CELL UR AU 0 /HPF (0-6); UROBILINOGEN, URINE AUTO 0.2 mg/dL (0.0-2.0); WBC, URINE AUTO 3 /HPF (0-3)
== END ==
LOC: M LAB 09:04
PROVIDERS: ATTEND Transplant Surgery
DX: N18.5 Chronic kidney disease, stage 5 (principal); D84.9 Immunodeficiency, unspecified; Z94.0 Kidney transplant status; Z79.899 Other long term (current) drug therapy

== ENCOUNTER → 2019-12-28 | Outpatient (CLI) | payer MEDICARE, OTHER ==
[2019-12-28 12:22] LABS: APPEARANCE, URINE HAZY (CLEAR); BACTERIA, URINE AUTO NEGATIVE (NEGATIVE); BILIRUBIN, URINE AUTO NEGATIVE (NEGATIVE); BLOOD, URINE BLOOD NEGATIVE (NEGATIVE); COLOR, URINE YELLOW (YELLOW); GLUCOSE, URINE (UA) AUTO 3+ mg/dL (NEGATIVE); KETONE, URINE AUTO NEGATIVE (NEGATIVE); LEUKOCYTE ESTERASE, URINE AUTO TRACE (NEGATIVE); NITRITE, URINE AUTO NEGATIVE (NEGATIVE); PROTEIN, URINE AUTO NEGATIVE (NEGATIVE); RBC, URINE AUTO 1 /HPF (0-3); SQUAMOUS EPITHELIAL CELL UR AU 0 /HPF (0-6); UROBILINOGEN, URINE AUTO 0.2 mg/dL (0.0-2.0); WBC, URINE AUTO 9 /HPF (0-3)
[2019-12-28 12:27] LABS: BASO % 0.8 % (0.0-1.0); EOS # 0.1 10^3/uL (0.0-0.5); EOS % 2.7 % (0.0-3.0); HEMATOCRIT 28.9 % (36.0-47.0); HEMOGLOBIN 9.6 g/dl (12.0-15.5); LYMPH # 1.4 10^3/uL (1.5-5.0); LYMPH % 29.1 % (24.0-44.0); MEAN CORPUSCULAR HGB CONC 33.2 g/dl (32.0-36.5); MEAN CORPUSCULAR VOLUME 105.5 fl (80.0-96.0); MONO # 0.4 10^3/uL (0.0-0.8); MONO % 8.2 % (0.0-5.0); NEUTROPHILS # 2.9 10^3/uL (1.5-8.5); PLATELET COUNT, AUTOMATED 515 10^3/uL (150-450); RED BLOOD COUNT 2.74 10^6/uL (4.00-5.40); WHITE BLOOD COUNT 4.9 10^3/uL (4.0-10.0)
[2019-12-28 12:38] LABS: CREATININE,RANDOM URINE 32.4 MG/DL; TOTAL PROTEIN,RANDOM URINE 15.9 MG/DL (0.0-12.0)
[2019-12-28 12:38] LABS: ALBUMIN 3.6 GM/DL (3.2-5.2); BLOOD UREA NITROGEN 19 MG/DL (7-18); CALCIUM LEVEL 9.6 MG/DL (8.5-10.1); CARBON DIOXIDE LEVEL 32 MEQ/L (21-32); CHLORIDE LEVEL 99 MEQ/L (98-107); CREATININE FOR GFR 1.05 MG/DL (0.55-1.30); GLOMERULAR FILTRATION RATE > 60.0 (>60); GLUCOSE, FASTING 124 MG/DL (70-100); MAGNESIUM LEVEL 1.7 MG/DL (1.8-2.4); PHOSPHORUS LEVEL 2.3 MG/DL (2.5-4.9); POTASSIUM SERUM 4.7 MEQ/L (3.5-5.1); SODIUM LEVEL 138 MEQ/L (136-145)
== END ==
LOC: M LAB 09:42
PROVIDERS: ATTEND Physician Assistant Surgical
DX: Z94.0 Kidney transplant status (principal); N18.5 Chronic kidney disease, stage 5; D84.9 Immunodeficiency, unspecified; Z79.899 Other long term (current) drug therapy

== ENCOUNTER → 2019-12-31 | Outpatient (CLI) | payer MEDICARE, OTHER ==
[2019-12-31 08:33] LABS: APPEARANCE, URINE CLEAR (CLEAR); BACTERIA, URINE AUTO 1+ (NEGATIVE); BILIRUBIN, URINE AUTO NEGATIVE (NEGATIVE); BLOOD, URINE BLOOD NEGATIVE (NEGATIVE); COLOR, URINE YELLOW (YELLOW); GLUCOSE, URINE (UA) AUTO NEGATIVE (NEGATIVE); KETONE, URINE AUTO NEGATIVE (NEGATIVE); LEUKOCYTE ESTERASE, URINE AUTO NEGATIVE (NEGATIVE); NITRITE, URINE AUTO POSITIVE (NEGATIVE); PROTEIN, URINE AUTO NEGATIVE (NEGATIVE); RBC, URINE AUTO 1 /HPF (0-3); SPECIFIC GRAVITY URINE AUTO 1.006 (1.002-1.035); SQUAMOUS EPITHELIAL CELL UR AU 0 /HPF (0-6); UROBILINOGEN, URINE AUTO 0.2 mg/dL (0.0-2.0); WBC, URINE AUTO 6 /HPF (0-3)
[2019-12-31 08:36] LABS: BASO # 0.1 10^3/uL (0.0-0.2); BASO % 0.6 % (0.0-1.0); EOS # 0.2 10^3/uL (0.0-0.5); EOS % 1.9 % (0.0-3.0); HEMATOCRIT 28.7 % (36.0-47.0); HEMOGLOBIN 9.4 g/dl (12.0-15.5); LYMPH # 1.8 10^3/uL (1.5-5.0); LYMPH % 21.1 % (24.0-44.0); MEAN CORPUSCULAR HEMOGLOBIN 34.4 pg (27.0-33.0); MEAN CORPUSCULAR HGB CONC 32.8 g/dl (32.0-36.5); MEAN CORPUSCULAR VOLUME 105.1 fl (80.0-96.0); MONO # 0.8 10^3/uL (0.0-0.8); MONO % 9.2 % (0.0-5.0); NEUTROPHILS # 5.8 10^3/uL (1.5-8.5); NEUTROPHILS % 66.9 % (36.0-66.0); PLATELET COUNT, AUTOMATED 529 10^3/uL (150-450); RED BLOOD COUNT 2.73 10^6/uL (4.00-5.40); WHITE BLOOD COUNT 8.7 10^3/uL (4.0-10.0)
[2019-12-31 08:58] LABS: ALBUMIN 3.5 GM/DL (3.2-5.2); BLOOD UREA NITROGEN 19 MG/DL (7-18); CALCIUM LEVEL 9.2 MG/DL (8.5-10.1); CARBON DIOXIDE LEVEL 33 MEQ/L (21-32); CHLORIDE LEVEL 98 MEQ/L (98-107); CREATININE FOR GFR 1.09 MG/DL (0.55-1.30); GLOMERULAR FILTRATION RATE > 60.0 (>60); GLUCOSE, FASTING 138 MG/DL (70-100); MAGNESIUM LEVEL 2.1 MG/DL (1.8-2.4); PHOSPHORUS LEVEL 2.7 MG/DL (2.5-4.9); POTASSIUM SERUM 3.8 MEQ/L (3.5-5.1); SODIUM LEVEL 136 MEQ/L (136-145)
[2019-12-31 08:58] LABS: CREATININE,RANDOM URINE 26.1 MG/DL; TOTAL PROTEIN,RANDOM URINE 13.3 MG/DL (0.0-12.0)
== END ==
LOC: M LAB 07:55
PROVIDERS: ATTEND Transplant Surgery
DX: N18.5 Chronic kidney disease, stage 5 (principal); D84.9 Immunodeficiency, unspecified; Z94.0 Kidney transplant status; Z79.899 Other long term (current) drug therapy

== ENCOUNTER → 2020-01-07 | Outpatient (CLI) | payer MEDICARE, OTHER ==
[2020-01-07 10:52] LABS: BASO # 0.1 10^3/uL (0.0-0.2); EOS # 0.1 10^3/uL (0.0-0.5); EOS % 2.3 % (0.0-3.0); HEMATOCRIT 28.3 % (36.0-47.0); HEMOGLOBIN 9.5 g/dl (12.0-15.5); LYMPH # 1.6 10^3/uL (1.5-5.0); LYMPH % 30.4 % (24.0-44.0); MEAN CORPUSCULAR HEMOGLOBIN 35.3 pg (27.0-33.0); MEAN CORPUSCULAR HGB CONC 33.6 g/dl (32.0-36.5); MEAN CORPUSCULAR VOLUME 105.2 fl (80.0-96.0); MONO # 0.4 10^3/uL (0.0-0.8); MONO % 7.9 % (0.0-5.0); PLATELET COUNT, AUTOMATED 539 10^3/uL (150-450); RED BLOOD COUNT 2.69 10^6/uL (4.00-5.40); WHITE BLOOD COUNT 5.2 10^3/uL (4.0-10.0)
[2020-01-07 10:57] LABS: APPEARANCE, URINE CLOUDY (CLEAR); BACTERIA, URINE AUTO 1+ (NEGATIVE); BILIRUBIN, URINE AUTO NEGATIVE (NEGATIVE); BLOOD, URINE BLOOD NEGATIVE (NEGATIVE); CALCIUM OXALATE CRYSTALS SMALL; COLOR, URINE YELLOW (YELLOW); GLUCOSE, URINE (UA) AUTO 3+ mg/dL (NEGATIVE); KETONE, URINE AUTO NEGATIVE (NEGATIVE); LEUKOCYTE ESTERASE, URINE AUTO NEGATIVE (NEGATIVE); MUCUS, URINE SMALL (NEGATIVE); NITRITE, URINE AUTO NEGATIVE (NEGATIVE); PROTEIN, URINE AUTO NEGATIVE (NEGATIVE); RBC, URINE AUTO 4 /HPF (0-3); SQUAMOUS EPITHELIAL CELL UR AU 0 /HPF (0-6); UROBILINOGEN, URINE AUTO 0.2 mg/dL (0.0-2.0); WBC, URINE AUTO 12 /HPF (0-3)
[2020-01-07 11:03] LABS: ALBUMIN 3.5 GM/DL (3.2-5.2); BLOOD UREA NITROGEN 18 MG/DL (7-18); CALCIUM LEVEL 9.8 MG/DL (8.5-10.1); CARBON DIOXIDE LEVEL 32 MEQ/L (21-32); CHLORIDE LEVEL 101 MEQ/L (98-107); CREATININE FOR GFR 1.12 MG/DL (0.55-1.30); GLOMERULAR FILTRATION RATE > 60.0 (>60); GLUCOSE, FASTING 149 MG/DL (70-100); MAGNESIUM LEVEL 1.9 MG/DL (1.8-2.4); PHOSPHORUS LEVEL 2.9 MG/DL (2.5-4.9); POTASSIUM SERUM 4.2 MEQ/L (3.5-5.1); SODIUM LEVEL 136 MEQ/L (136-145)
[2020-01-07 11:06] LABS: CREATININE,RANDOM URINE 87.8 MG/DL; TOTAL PROTEIN,RANDOM URINE 36.2 MG/DL (0.0-12.0)
== END ==
LOC: M LAB 09:28
PROVIDERS: ATTEND Transplant Surgery
DX: N18.5 Chronic kidney disease, stage 5 (principal); D84.9 Immunodeficiency, unspecified; Z79.899 Other long term (current) drug therapy; Z94.0 Kidney transplant status

== ENCOUNTER → 2020-01-11 | Outpatient (CLI) | payer MEDICARE, OTHER ==
[2020-01-11 10:37] LABS: BASO # 0.1 10^3/uL (0.0-0.2); BASO % 0.8 % (0.0-1.0); EOS # 0.1 10^3/uL (0.0-0.5); EOS % 1.9 % (0.0-3.0); HEMATOCRIT 26.6 % (36.0-47.0); HEMOGLOBIN 8.8 g/dl (12.0-15.5); LYMPH # 1.3 10^3/uL (1.5-5.0); LYMPH % 19.6 % (24.0-44.0); MEAN CORPUSCULAR HEMOGLOBIN 35.2 pg (27.0-33.0); MEAN CORPUSCULAR HGB CONC 33.1 g/dl (32.0-36.5); MEAN CORPUSCULAR VOLUME 106.4 fl (80.0-96.0); MONO # 0.5 10^3/uL (0.0-0.8); MONO % 7.8 % (0.0-5.0); NEUTROPHILS # 4.5 10^3/uL (1.5-8.5); NEUTROPHILS % 69.3 % (36.0-66.0); PLATELET COUNT, AUTOMATED 492 10^3/uL (150-450); WHITE BLOOD COUNT 6.4 10^3/uL (4.0-10.0)
[2020-01-11 10:41] LABS: APPEARANCE, URINE CLOUDY (CLEAR); BACTERIA, URINE AUTO 1+ (NEGATIVE); BILIRUBIN, URINE AUTO NEGATIVE (NEGATIVE); BLOOD, URINE BLOOD NEGATIVE (NEGATIVE); COLOR, URINE YELLOW (YELLOW); GLUCOSE, URINE (UA) AUTO 3+ mg/dL (NEGATIVE); KETONE, URINE AUTO NEGATIVE (NEGATIVE); LEUKOCYTE ESTERASE, URINE AUTO TRACE (NEGATIVE); NITRITE, URINE AUTO NEGATIVE (NEGATIVE); PROTEIN, URINE AUTO NEGATIVE (NEGATIVE); RBC, URINE AUTO 6 /HPF (0-3); SPECIFIC GRAVITY URINE AUTO 1.018 (1.002-1.035); SQUAMOUS EPITHELIAL CELL UR AU 0 /HPF (0-6); UROBILINOGEN, URINE AUTO 0.2 mg/dL (0.0-2.0); WBC, URINE AUTO 27 /HPF (0-3)
[2020-01-11 10:54] LABS: CREATININE,RANDOM URINE 52.6 MG/DL; TOTAL PROTEIN,RANDOM URINE 32.6 MG/DL (0.0-12.0)
[2020-01-11 10:58] LABS: ALBUMIN 3.3 GM/DL (3.2-5.2); BLOOD UREA NITROGEN 22 MG/DL (7-18); CALCIUM LEVEL 9.4 MG/DL (8.5-10.1); CARBON DIOXIDE LEVEL 31 MEQ/L (21-32); CHLORIDE LEVEL 101 MEQ/L (98-107); CREATININE FOR GFR 1.07 MG/DL (0.55-1.30); GLOMERULAR FILTRATION RATE > 60.0 (>60); GLUCOSE, FASTING 247 MG/DL (70-100); MAGNESIUM LEVEL 1.7 MG/DL (1.8-2.4); PHOSPHORUS LEVEL 2.1 MG/DL (2.5-4.9); POTASSIUM SERUM 3.7 MEQ/L (3.5-5.1); SODIUM LEVEL 135 MEQ/L (136-145)
== END ==
LOC: M LAB 08:44
PROVIDERS: ATTEND Transplant Surgery
DX: D84.9 Immunodeficiency, unspecified (principal); Z94.0 Kidney transplant status; Z79.899 Other long term (current) drug therapy

== ENCOUNTER → 2020-01-14 | Outpatient (CLI) | payer MEDICARE, OTHER ==
[2020-01-14 08:42] LABS: APPEARANCE, URINE HAZY (CLEAR); BACTERIA, URINE AUTO 1+ (NEGATIVE); BILIRUBIN, URINE AUTO NEGATIVE (NEGATIVE); BLOOD, URINE BLOOD NEGATIVE (NEGATIVE); COLOR, URINE YELLOW (YELLOW); GLUCOSE, URINE (UA) AUTO 3+ mg/dL (NEGATIVE); KETONE, URINE AUTO NEGATIVE (NEGATIVE); LEUKOCYTE ESTERASE, URINE AUTO 1+ (NEGATIVE); NITRITE, URINE AUTO NEGATIVE (NEGATIVE); PROTEIN, URINE AUTO NEGATIVE (NEGATIVE); RBC, URINE AUTO 2 /HPF (0-3); SPECIFIC GRAVITY URINE AUTO 1.008 (1.002-1.035); SQUAMOUS EPITHELIAL CELL UR AU 1 /HPF (0-6); UROBILINOGEN, URINE AUTO 0.2 mg/dL (0.0-2.0); WBC, URINE AUTO 12 /HPF (0-3)
[2020-01-14 08:44] LABS: BASO # 0.1 10^3/uL (0.0-0.2); BASO % 0.8 % (0.0-1.0); EOS # 0.1 10^3/uL (0.0-0.5); EOS % 2.3 % (0.0-3.0); HEMATOCRIT 27.5 % (36.0-47.0); HEMOGLOBIN 9.2 g/dl (12.0-15.5); LYMPH # 1.4 10^3/uL (1.5-5.0); LYMPH % 23.8 % (24.0-44.0); MEAN CORPUSCULAR HEMOGLOBIN 35.1 pg (27.0-33.0); MEAN CORPUSCULAR HGB CONC 33.5 g/dl (32.0-36.5); MONO # 0.6 10^3/uL (0.0-0.8); MONO % 9.1 % (0.0-5.0); NEUTROPHILS # 3.8 10^3/uL (1.5-8.5); NEUTROPHILS % 63.7 % (36.0-66.0); PLATELET COUNT, AUTOMATED 493 10^3/uL (150-450); RED BLOOD COUNT 2.62 10^6/uL (4.00-5.40)
[2020-01-14 09:08] LABS: CREATININE,RANDOM URINE 41.2 MG/DL
[2020-01-14 09:16] LABS: ALBUMIN 3.6 GM/DL (3.2-5.2); CALCIUM LEVEL 9.9 MG/DL (8.5-10.1); CREATININE FOR GFR 1.23 MG/DL (0.55-1.30); MAGNESIUM LEVEL 1.8 MG/DL (1.8-2.4); PHOSPHORUS LEVEL 2.9 MG/DL (2.5-4.9); POTASSIUM SERUM 4.9 MEQ/L (3.5-5.1)
== END ==
LOC: M LAB 07:43
PROVIDERS: ATTEND Transplant Surgery
DX: D84.9 Immunodeficiency, unspecified (principal); N18.5 Chronic kidney disease, stage 5; Z79.899 Other long term (current) drug therapy; Z94.0 Kidney transplant status

== ENCOUNTER → 2020-01-18 | Outpatient (CLI) | payer MEDICARE, OTHER ==
[2020-01-18 09:20] LABS: BASO % 0.7 % (0.0-1.0); EOS # 0.1 10^3/uL (0.0-0.5); EOS % 1.8 % (0.0-3.0); HEMATOCRIT 32.5 % (36.0-47.0); HEMOGLOBIN 10.8 g/dl (12.0-15.5); LYMPH # 1.6 10^3/uL (1.5-5.0); MEAN CORPUSCULAR HEMOGLOBIN 35.1 pg (27.0-33.0); MEAN CORPUSCULAR HGB CONC 33.2 g/dl (32.0-36.5); MEAN CORPUSCULAR VOLUME 105.5 fl (80.0-96.0); MONO # 0.5 10^3/uL (0.0-0.8); MONO % 9.3 % (0.0-5.0); NEUTROPHILS # 3.4 10^3/uL (1.5-8.5); NEUTROPHILS % 59.8 % (36.0-66.0); PLATELET COUNT, AUTOMATED 542 10^3/uL (150-450); RED BLOOD COUNT 3.08 10^6/uL (4.00-5.40); WHITE BLOOD COUNT 5.7 10^3/uL (4.0-10.0)
[2020-01-18 09:32] LABS: APPEARANCE, URINE CLOUDY (CLEAR); BACTERIA, URINE AUTO 1+ (NEGATIVE); BILIRUBIN, URINE AUTO NEGATIVE (NEGATIVE); BLOOD, URINE BLOOD NEGATIVE (NEGATIVE); CALCIUM OXALATE CRYSTALS SMALL; COLOR, URINE YELLOW (YELLOW); GLUCOSE, URINE (UA) AUTO 3+ mg/dL (NEGATIVE); KETONE, URINE AUTO TRACE mg/dL (NEGATIVE); LEUKOCYTE ESTERASE, URINE AUTO 1+ (NEGATIVE); MUCUS, URINE SMALL (NEGATIVE); NITRITE, URINE AUTO POSITIVE (NEGATIVE); PROTEIN, URINE AUTO NEGATIVE (NEGATIVE); RBC, URINE AUTO 5 /HPF (0-3); SPECIFIC GRAVITY URINE AUTO 1.011 (1.002-1.035); SQUAMOUS EPITHELIAL CELL UR AU 3 /HPF (0-6); UROBILINOGEN, URINE AUTO 0.2 mg/dL (0.0-2.0); WBC, URINE AUTO 46 /HPF (0-3)
[2020-01-18 09:46] LABS: CREATININE,RANDOM URINE 59.5 MG/DL
[2020-01-18 09:49] LABS: ALBUMIN 3.6 GM/DL (3.2-5.2); CALCIUM LEVEL 9.7 MG/DL (8.5-10.1); CREATININE FOR GFR 1.3 MG/DL (0.55-1.30); GLOMERULAR FILTRATION RATE 51.6 (>60); PHOSPHORUS LEVEL 2.6 MG/DL (2.5-4.9); POTASSIUM SERUM 4.6 MEQ/L (3.5-5.1)
== END ==
LOC: M LAB 08:22
PROVIDERS: ATTEND Transplant Surgery
DX: N18.5 Chronic kidney disease, stage 5 (principal); D84.9 Immunodeficiency, unspecified; Z94.0 Kidney transplant status; Z79.899 Other long term (current) drug therapy

== ENCOUNTER → 2020-01-21 | Outpatient (CLI) | payer MEDICARE, OTHER ==
[2020-01-21 09:37] LABS: BASO # 0.1 10^3/uL (0.0-0.2); EOS # 0.2 10^3/uL (0.0-0.5); EOS % 3.4 % (0.0-3.0); HEMATOCRIT 31.6 % (36.0-47.0); HEMOGLOBIN 10.3 g/dl (12.0-15.5); LYMPH # 2.2 10^3/uL (1.5-5.0); LYMPH % 35.6 % (24.0-44.0); MEAN CORPUSCULAR HEMOGLOBIN 34.3 pg (27.0-33.0); MEAN CORPUSCULAR HGB CONC 32.6 g/dl (32.0-36.5); MEAN CORPUSCULAR VOLUME 105.3 fl (80.0-96.0); MONO # 0.5 10^3/uL (0.0-0.8); NEUTROPHILS # 3.3 10^3/uL (1.5-8.5); NEUTROPHILS % 51.8 % (36.0-66.0); PLATELET COUNT, AUTOMATED 492 10^3/uL (150-450); WHITE BLOOD COUNT 6.3 10^3/uL (4.0-10.0)
[2020-01-21 09:47] LABS: APPEARANCE, URINE HAZY (CLEAR); BACTERIA, URINE AUTO NEGATIVE (NEGATIVE); BILIRUBIN, URINE AUTO NEGATIVE (NEGATIVE); BLOOD, URINE BLOOD NEGATIVE (NEGATIVE); COLOR, URINE YELLOW (YELLOW); GLUCOSE, URINE (UA) AUTO 3+ mg/dL (NEGATIVE); KETONE, URINE AUTO NEGATIVE (NEGATIVE); LEUKOCYTE ESTERASE, URINE AUTO TRACE (NEGATIVE); MUCUS, URINE SMALL (NEGATIVE); NITRITE, URINE AUTO NEGATIVE (NEGATIVE); PROTEIN, URINE AUTO NEGATIVE (NEGATIVE); RBC, URINE AUTO 4 /HPF (0-3); SPECIFIC GRAVITY URINE AUTO 1.012 (1.002-1.035); SQUAMOUS EPITHELIAL CELL UR AU 5 /HPF (0-6); UROBILINOGEN, URINE AUTO 0.2 mg/dL (0.0-2.0); WBC, URINE AUTO 6 /HPF (0-3)
[2020-01-21 10:00] LABS: ALBUMIN 3.4 GM/DL (3.2-5.2); CALCIUM LEVEL 9.3 MG/DL (8.5-10.1); CREATININE FOR GFR 1.39 MG/DL (0.55-1.30); GLOMERULAR FILTRATION RATE 47.7 (>60); MAGNESIUM LEVEL 1.9 MG/DL (1.8-2.4); POTASSIUM SERUM 4.3 MEQ/L (3.5-5.1)
[2020-01-21 10:01] LABS: CREATININE,RANDOM URINE 52.1 MG/DL; TOTAL PROTEIN,RANDOM URINE 20.8 MG/DL (0.0-12.0)
== END ==
LOC: M LAB 09:00
PROVIDERS: ATTEND Transplant Surgery
DX: Z94.0 Kidney transplant status (principal); N18.5 Chronic kidney disease, stage 5; D84.9 Immunodeficiency, unspecified; Z79.899 Other long term (current) drug therapy

== ENCOUNTER → 2020-01-25 | Outpatient (CLI) | payer MEDICARE, OTHER ==
[2020-01-25 09:26] LABS: BASO # 0.1 10^3/uL (0.0-0.2); EOS # 0.2 10^3/uL (0.0-0.5); EOS % 2.4 % (0.0-3.0); HEMATOCRIT 32.4 % (36.0-47.0); HEMOGLOBIN 10.6 g/dl (12.0-15.5); LYMPH # 1.9 10^3/uL (1.5-5.0); LYMPH % 30.8 % (24.0-44.0); MEAN CORPUSCULAR HEMOGLOBIN 34.5 pg (27.0-33.0); MEAN CORPUSCULAR HGB CONC 32.7 g/dl (32.0-36.5); MEAN CORPUSCULAR VOLUME 105.5 fl (80.0-96.0); MONO # 0.5 10^3/uL (0.0-0.8); MONO % 7.3 % (0.0-5.0); NEUTROPHILS # 3.6 10^3/uL (1.5-8.5); NEUTROPHILS % 58.2 % (36.0-66.0); PLATELET COUNT, AUTOMATED 449 10^3/uL (150-450); RED BLOOD COUNT 3.07 10^6/uL (4.00-5.40); WHITE BLOOD COUNT 6.3 10^3/uL (4.0-10.0)
[2020-01-25 09:30] LABS: APPEARANCE, URINE CLEAR (CLEAR); BACTERIA, URINE AUTO 1+ (NEGATIVE); BILIRUBIN, URINE AUTO NEGATIVE (NEGATIVE); BLOOD, URINE BLOOD NEGATIVE (NEGATIVE); COLOR, URINE YELLOW (YELLOW); GLUCOSE, URINE (UA) AUTO 3+ mg/dL (NEGATIVE); KETONE, URINE AUTO NEGATIVE (NEGATIVE); LEUKOCYTE ESTERASE, URINE AUTO NEGATIVE (NEGATIVE); NITRITE, URINE AUTO NEGATIVE (NEGATIVE); PROTEIN, URINE AUTO NEGATIVE (NEGATIVE); RBC, URINE AUTO 2 /HPF (0-3); SPECIFIC GRAVITY URINE AUTO 1.007 (1.002-1.035); SQUAMOUS EPITHELIAL CELL UR AU 1 /HPF (0-6); UROBILINOGEN, URINE AUTO 0.2 mg/dL (0.0-2.0); WBC, URINE AUTO 1 /HPF (0-3)
[2020-01-25 09:54] LABS: CREATININE,RANDOM URINE 29.1 MG/DL; TOTAL PROTEIN,RANDOM URINE 17.2 MG/DL (0.0-12.0)
[2020-01-25 09:55] LABS: ALBUMIN 3.6 GM/DL (3.2-5.2); CALCIUM LEVEL 9.8 MG/DL (8.5-10.1); CREATININE FOR GFR 1.16 MG/DL (0.55-1.30); GLOMERULAR FILTRATION RATE 58.8 (>60); MAGNESIUM LEVEL 1.9 MG/DL (1.8-2.4); PHOSPHORUS LEVEL 3.1 MG/DL (2.5-4.9); POTASSIUM SERUM 4.4 MEQ/L (3.5-5.1)
== END ==
LOC: M LAB 08:49
PROVIDERS: ATTEND Transplant Surgery
DX: D84.9 Immunodeficiency, unspecified (principal); N18.5 Chronic kidney disease, stage 5; Z79.899 Other long term (current) drug therapy; Z94.0 Kidney transplant status

== ENCOUNTER → 2020-02-01 | Outpatient (CLI) | payer MEDICARE, OTHER ==
[2020-02-01 08:11] LABS: BASO # 0.1 10^3/uL (0.0-0.2); BASO % 0.9 % (0.0-1.0); EOS # 0.2 10^3/uL (0.0-0.5); EOS % 3.9 % (0.0-3.0); HEMATOCRIT 31.9 % (36.0-47.0); HEMOGLOBIN 10.3 g/dl (12.0-15.5); LYMPH # 2.3 10^3/uL (1.5-5.0); MEAN CORPUSCULAR HEMOGLOBIN 34.4 pg (27.0-33.0); MEAN CORPUSCULAR HGB CONC 32.3 g/dl (32.0-36.5); MEAN CORPUSCULAR VOLUME 106.7 fl (80.0-96.0); MONO # 0.5 10^3/uL (0.0-0.8); MONO % 7.9 % (0.0-5.0); NEUTROPHILS # 2.7 10^3/uL (1.5-8.5); PLATELET COUNT, AUTOMATED 392 10^3/uL (150-450); RED BLOOD COUNT 2.99 10^6/uL (4.00-5.40); WHITE BLOOD COUNT 5.8 10^3/uL (4.0-10.0)
[2020-02-01 08:29] LABS: ALBUMIN 3.4 GM/DL (3.2-5.2); CALCIUM LEVEL 9.1 MG/DL (8.5-10.1); CREATININE FOR GFR 1.53 MG/DL (0.55-1.30); GLOMERULAR FILTRATION RATE 42.7 (>60); MAGNESIUM LEVEL 1.8 MG/DL (1.8-2.4); PHOSPHORUS LEVEL 3.8 MG/DL (2.5-4.9); POTASSIUM SERUM 4.3 MEQ/L (3.5-5.1)
[2020-02-01 08:40] LABS: APPEARANCE, URINE CLOUDY (CLEAR); BACTERIA, URINE AUTO 1+ (NEGATIVE); BILIRUBIN, URINE AUTO NEGATIVE (NEGATIVE); BLOOD, URINE BLOOD NEGATIVE (NEGATIVE); CALCIUM OXALATE CRYSTALS LARGE; COLOR, URINE YELLOW (YELLOW); GLUCOSE, URINE (UA) AUTO 1+ mg/dL (NEGATIVE); KETONE, URINE AUTO NEGATIVE (NEGATIVE); LEUKOCYTE ESTERASE, URINE AUTO TRACE (NEGATIVE); NITRITE, URINE AUTO NEGATIVE (NEGATIVE); PROTEIN, URINE AUTO NEGATIVE (NEGATIVE); RBC, URINE AUTO 28 /HPF (0-3); SPECIFIC GRAVITY URINE AUTO 1.018 (1.002-1.035); SQUAMOUS EPITHELIAL CELL UR AU 12 /HPF (0-6); UROBILINOGEN, URINE AUTO 0.2 mg/dL (0.0-2.0); WBC, URINE AUTO 10 /HPF (0-3)
[2020-02-01 08:43] LABS: CREATININE,RANDOM URINE 95.9 MG/DL; TOTAL PROTEIN,RANDOM URINE 34.4 MG/DL (0.0-12.0)
== END ==
LOC: M LAB 07:39
PROVIDERS: ATTEND Transplant Surgery
DX: N18.5 Chronic kidney disease, stage 5 (principal); D84.9 Immunodeficiency, unspecified; Z79.899 Other long term (current) drug therapy; Z94.0 Kidney transplant status

== ENCOUNTER → 2020-02-11 | Outpatient (CLI) | payer MEDICARE, OTHER ==
[2020-02-11 10:20] LABS: APPEARANCE, URINE HAZY (CLEAR); BACTERIA, URINE AUTO NEGATIVE (NEGATIVE); BILIRUBIN, URINE AUTO NEGATIVE (NEGATIVE); BLOOD, URINE BLOOD NEGATIVE (NEGATIVE); COLOR, URINE YELLOW (YELLOW); GLUCOSE, URINE (UA) AUTO 3+ mg/dL (NEGATIVE); KETONE, URINE AUTO NEGATIVE (NEGATIVE); LEUKOCYTE ESTERASE, URINE AUTO NEGATIVE (NEGATIVE); NITRITE, URINE AUTO NEGATIVE (NEGATIVE); PROTEIN, URINE AUTO NEGATIVE (NEGATIVE); RBC, URINE AUTO 28 /HPF (0-3); SPECIFIC GRAVITY URINE AUTO 1.008 (1.002-1.035); SQUAMOUS EPITHELIAL CELL UR AU 6 /HPF (0-6); UROBILINOGEN, URINE AUTO 0.2 mg/dL (0.0-2.0); WBC, URINE AUTO 5 /HPF (0-3)
[2020-02-11 10:26] LABS: BASO % 0.7 % (0.0-1.0); EOS # 0.2 10^3/uL (0.0-0.5); EOS % 3.3 % (0.0-3.0); HEMATOCRIT 31.9 % (36.0-47.0); HEMOGLOBIN 10.4 g/dl (12.0-15.5); LYMPH # 1.4 10^3/uL (1.5-5.0); LYMPH % 24.8 % (24.0-44.0); MEAN CORPUSCULAR HEMOGLOBIN 34.9 pg (27.0-33.0); MEAN CORPUSCULAR HGB CONC 32.6 g/dl (32.0-36.5); MONO # 0.6 10^3/uL (0.0-0.8); MONO % 9.6 % (0.0-5.0); NEUTROPHILS # 3.6 10^3/uL (1.5-8.5); NEUTROPHILS % 61.3 % (36.0-66.0); PLATELET COUNT, AUTOMATED 372 10^3/uL (150-450); RED BLOOD COUNT 2.98 10^6/uL (4.00-5.40); WHITE BLOOD COUNT 5.8 10^3/uL (4.0-10.0)
[2020-02-11 11:08] LABS: ALBUMIN 3.6 GM/DL (3.2-5.2); CALCIUM LEVEL 9.3 MG/DL (8.5-10.1); CREATININE FOR GFR 1.35 MG/DL (0.55-1.30); GLOMERULAR FILTRATION RATE 49.4 (>60); MAGNESIUM LEVEL 1.8 MG/DL (1.8-2.4); PHOSPHORUS LEVEL 2.9 MG/DL (2.5-4.9); POTASSIUM SERUM 4.4 MEQ/L (3.5-5.1)
[2020-02-11 11:11] LABS: CREATININE,RANDOM URINE 50.8 MG/DL; TOTAL PROTEIN,RANDOM URINE 17.6 MG/DL (0.0-12.0)
== END ==
LOC: M LAB 08:41
PROVIDERS: ATTEND Physician Assistant Surgical
DX: Z51.81 Encounter for therapeutic drug level monitoring (principal); Z79.899 Other long term (current) drug therapy; Z94.0 Kidney transplant status; N18.5 Chronic kidney disease, stage 5; D84.9 Immunodeficiency, unspecified

== ENCOUNTER → 2020-02-18 | Outpatient (CLI) | payer MEDICARE, OTHER ==
[2020-02-18 08:48] LABS: BASO # 0.1 10^3/uL (0.0-0.2); EOS # 0.2 10^3/uL (0.0-0.5); EOS % 2.6 % (0.0-3.0); HEMATOCRIT 34.2 % (36.0-47.0); HEMOGLOBIN 11.1 g/dl (12.0-15.5); LYMPH # 2.5 10^3/uL (1.5-5.0); LYMPH % 40.3 % (24.0-44.0); MEAN CORPUSCULAR HEMOGLOBIN 34.2 pg (27.0-33.0); MEAN CORPUSCULAR HGB CONC 32.5 g/dl (32.0-36.5); MEAN CORPUSCULAR VOLUME 105.2 fl (80.0-96.0); MONO # 0.6 10^3/uL (0.0-0.8); MONO % 9.2 % (0.0-5.0); NEUTROPHILS # 2.9 10^3/uL (1.5-8.5); NEUTROPHILS % 46.7 % (36.0-66.0); PLATELET COUNT, AUTOMATED 398 10^3/uL (150-450); RED BLOOD COUNT 3.25 10^6/uL (4.00-5.40); WHITE BLOOD COUNT 6.1 10^3/uL (4.0-10.0)
[2020-02-18 08:54] LABS: APPEARANCE, URINE HAZY (CLEAR); BACTERIA, URINE AUTO 1+ (NEGATIVE); BILIRUBIN, URINE AUTO NEGATIVE (NEGATIVE); BLOOD, URINE BLOOD NEGATIVE (NEGATIVE); CALCIUM OXALATE CRYSTALS SMALL; COLOR, URINE YELLOW (YELLOW); GLUCOSE, URINE (UA) AUTO 3+ mg/dL (NEGATIVE); KETONE, URINE AUTO TRACE mg/dL (NEGATIVE); LEUKOCYTE ESTERASE, URINE AUTO NEGATIVE (NEGATIVE); NITRITE, URINE AUTO NEGATIVE (NEGATIVE); PROTEIN, URINE AUTO NEGATIVE (NEGATIVE); RBC, URINE AUTO 1 /HPF (0-3); SPECIFIC GRAVITY URINE AUTO 1.011 (1.002-1.035); SQUAMOUS EPITHELIAL CELL UR AU 1 /HPF (0-6); UROBILINOGEN, URINE AUTO 0.2 mg/dL (0.0-2.0); WBC, URINE AUTO 8 /HPF (0-3)
[2020-02-18 09:20] LABS: CREATININE,RANDOM URINE 77.7 MG/DL
[2020-02-18 09:21] LABS: TOTAL PROTEIN,RANDOM URINE 23.7 MG/DL (0.0-12.0)
[2020-02-18 09:37] LABS: ALBUMIN 3.7 GM/DL (3.2-5.2); CALCIUM LEVEL 9.1 MG/DL (8.5-10.1); CREATININE FOR GFR 1.53 MG/DL (0.55-1.30); GLOMERULAR FILTRATION RATE 42.7 (>60); MAGNESIUM LEVEL 1.7 MG/DL (1.8-2.4); PHOSPHORUS LEVEL 3.5 MG/DL (2.5-4.9); POTASSIUM SERUM 3.8 MEQ/L (3.5-5.1)
== END ==
LOC: M LAB 08:13
PROVIDERS: ATTEND Physician Assistant Surgical
DX: D84.9 Immunodeficiency, unspecified (principal); Z94.0 Kidney transplant status; Z79.899 Other long term (current) drug therapy

== ENCOUNTER → 2020-03-07 | Outpatient (CLI) | payer MEDICARE, OTHER ==
[2020-03-07 10:05] LABS: APPEARANCE, URINE CLEAR (CLEAR); BACTERIA, URINE AUTO NEGATIVE (NEGATIVE); BILIRUBIN, URINE AUTO NEGATIVE (NEGATIVE); BLOOD, URINE BLOOD NEGATIVE (NEGATIVE); COLOR, URINE YELLOW (YELLOW); GLUCOSE, URINE (UA) AUTO 3+ mg/dL (NEGATIVE); KETONE, URINE AUTO NEGATIVE (NEGATIVE); LEUKOCYTE ESTERASE, URINE AUTO TRACE (NEGATIVE); NITRITE, URINE AUTO NEGATIVE (NEGATIVE); PROTEIN, URINE AUTO NEGATIVE (NEGATIVE); RBC, URINE AUTO 1 /HPF (0-3); SPECIFIC GRAVITY URINE AUTO 1.003 (1.002-1.035); SQUAMOUS EPITHELIAL CELL UR AU 0 /HPF (0-6); UROBILINOGEN, URINE AUTO 0.2 mg/dL (0.0-2.0); WBC, URINE AUTO 4 /HPF (0-3)
[2020-03-07 10:06] LABS: BASO # 0.1 10^3/uL (0.0-0.2); EOS # 0.2 10^3/uL (0.0-0.5); EOS % 4.4 % (0.0-3.0); HEMATOCRIT 31.8 % (36.0-47.0); HEMOGLOBIN 10.8 g/dl (12.0-15.5); LYMPH # 1.6 10^3/uL (1.5-5.0); LYMPH % 34.1 % (24.0-44.0); MEAN CORPUSCULAR HEMOGLOBIN 35.1 pg (27.0-33.0); MEAN CORPUSCULAR VOLUME 103.2 fl (80.0-96.0); MONO # 0.5 10^3/uL (0.0-0.8); NEUTROPHILS # 2.4 10^3/uL (1.5-8.5); NEUTROPHILS % 50.1 % (36.0-66.0); PLATELET COUNT, AUTOMATED 403 10^3/uL (150-450); RED BLOOD COUNT 3.08 10^6/uL (4.00-5.40); WHITE BLOOD COUNT 4.8 10^3/uL (4.0-10.0)
[2020-03-07 10:29] LABS: CREATININE,RANDOM URINE 18.3 MG/DL; TOTAL PROTEIN,RANDOM URINE 13.9 MG/DL (0.0-12.0)
[2020-03-07 10:29] LABS: ALBUMIN 3.6 GM/DL (3.2-5.2); BLOOD UREA NITROGEN 13 MG/DL (7-18); CALCIUM LEVEL 9.5 MG/DL (8.5-10.1); CARBON DIOXIDE LEVEL 35 MEQ/L (21-32); CHLORIDE LEVEL 97 MEQ/L (98-107); CREATININE FOR GFR 0.84 MG/DL (0.55-1.30); GLOMERULAR FILTRATION RATE > 60.0 (>60); GLUCOSE, FASTING 189 MG/DL (70-100); MAGNESIUM LEVEL 1.8 MG/DL (1.8-2.4); PHOSPHORUS LEVEL 3.2 MG/DL (2.5-4.9); POTASSIUM SERUM 4.4 MEQ/L (3.5-5.1); SODIUM LEVEL 134 MEQ/L (136-145)
== END ==
LOC: M LAB 09:15
PROVIDERS: ATTEND Physician Assistant Surgical
DX: Z94.0 Kidney transplant status (principal); N18.5 Chronic kidney disease, stage 5; D64.9 Anemia, unspecified; Z79.899 Other long term (current) drug therapy

== ENCOUNTER → 2020-03-31 | Outpatient (CLI) | payer MEDICARE, OTHER ==
[2020-03-31 11:23] LABS: APPEARANCE, URINE CLEAR (CLEAR); BACTERIA, URINE AUTO NEGATIVE (NEGATIVE); BILIRUBIN, URINE AUTO NEGATIVE (NEGATIVE); BLOOD, URINE BLOOD NEGATIVE (NEGATIVE); COLOR, URINE STRAW (YELLOW); GLUCOSE, URINE (UA) AUTO 2+ mg/dL (NEGATIVE); KETONE, URINE AUTO NEGATIVE (NEGATIVE); LEUKOCYTE ESTERASE, URINE AUTO NEGATIVE (NEGATIVE); NITRITE, URINE AUTO NEGATIVE (NEGATIVE); PROTEIN, URINE AUTO NEGATIVE (NEGATIVE); RBC, URINE AUTO 0 /HPF (0-3); SPECIFIC GRAVITY URINE AUTO 1.003 (1.002-1.035); SQUAMOUS EPITHELIAL CELL UR AU 0 /HPF (0-6); UROBILINOGEN, URINE AUTO 0.2 mg/dL (0.0-2.0); WBC, URINE AUTO 0 /HPF (0-3)
[2020-03-31 11:43] LABS: BASO % 0.8 % (0.0-1.0); EOS # 0.3 10^3/uL (0.0-0.5); EOS % 5.5 % (0.0-3.0); HEMATOCRIT 36.2 % (36.0-47.0); HEMOGLOBIN 11.7 g/dl (12.0-15.5); LYMPH # 1.7 10^3/uL (1.5-5.0); LYMPH % 31.7 % (24.0-44.0); MEAN CORPUSCULAR HEMOGLOBIN 33.5 pg (27.0-33.0); MEAN CORPUSCULAR HGB CONC 32.3 g/dl (32.0-36.5); MEAN CORPUSCULAR VOLUME 103.7 fl (80.0-96.0); MONO # 0.6 10^3/uL (0.0-0.8); MONO % 10.8 % (0.0-5.0); NEUTROPHILS # 2.7 10^3/uL (1.5-8.5); NEUTROPHILS % 50.6 % (36.0-66.0); PLATELET COUNT, AUTOMATED 401 10^3/uL (150-450); RED BLOOD COUNT 3.49 10^6/uL (4.00-5.40); WHITE BLOOD COUNT 5.3 10^3/uL (4.0-10.0)
[2020-03-31 12:09] LABS: TOTAL PROTEIN,RANDOM URINE 11.7 MG/DL (0.0-12.0)
[2020-03-31 12:15] LABS: ALBUMIN 3.8 GM/DL (3.2-5.2); BLOOD UREA NITROGEN 12 MG/DL (7-18); CALCIUM LEVEL 9.6 MG/DL (8.5-10.1); CARBON DIOXIDE LEVEL 32 MEQ/L (21-32); CHLORIDE LEVEL 100 MEQ/L (98-107); CREATININE FOR GFR 0.88 MG/DL (0.55-1.30); GLOMERULAR FILTRATION RATE > 60.0 (>60); GLUCOSE, FASTING 73 MG/DL (70-100); MAGNESIUM LEVEL 1.8 MG/DL (1.8-2.4); PHOSPHORUS LEVEL 3.5 MG/DL (2.5-4.9); POTASSIUM SERUM 4.4 MEQ/L (3.5-5.1); SODIUM LEVEL 138 MEQ/L (136-145)
== END ==
LOC: M LAB 09:59
PROVIDERS: ATTEND Physician Assistant Surgical
DX: D84.9 Immunodeficiency, unspecified (principal); N18.5 Chronic kidney disease, stage 5; Z94.0 Kidney transplant status; Z79.899 Other long term (current) drug therapy

== ENCOUNTER → 2020-04-11 | Outpatient (CLI) | payer MEDICARE, OTHER ==
[2020-04-11 07:55] LABS: BASO # 0.1 10^3/uL (0.0-0.2); EOS # 0.3 10^3/uL (0.0-0.5); EOS % 5.7 % (0.0-3.0); HEMATOCRIT 34.7 % (36.0-47.0); HEMOGLOBIN 11.1 g/dl (12.0-15.5); LYMPH # 1.8 10^3/uL (1.5-5.0); LYMPH % 34.6 % (24.0-44.0); MEAN CORPUSCULAR HEMOGLOBIN 32.3 pg (27.0-33.0); MEAN CORPUSCULAR VOLUME 100.9 fl (80.0-96.0); MONO # 0.6 10^3/uL (0.0-0.8); MONO % 11.2 % (0.0-5.0); NEUTROPHILS # 2.5 10^3/uL (1.5-8.5); NEUTROPHILS % 47.3 % (36.0-66.0); PLATELET COUNT, AUTOMATED 364 10^3/uL (150-450); RED BLOOD COUNT 3.44 10^6/uL (4.00-5.40); WHITE BLOOD COUNT 5.3 10^3/uL (4.0-10.0)
[2020-04-11 08:02] LABS: APPEARANCE, URINE CLEAR (CLEAR); BACTERIA, URINE AUTO 1+ (NEGATIVE); BILIRUBIN, URINE AUTO NEGATIVE (NEGATIVE); BLOOD, URINE BLOOD NEGATIVE (NEGATIVE); COLOR, URINE YELLOW (YELLOW); GLUCOSE, URINE (UA) AUTO 2+ mg/dL (NEGATIVE); KETONE, URINE AUTO NEGATIVE (NEGATIVE); LEUKOCYTE ESTERASE, URINE AUTO NEGATIVE (NEGATIVE); NITRITE, URINE AUTO NEGATIVE (NEGATIVE); PROTEIN, URINE AUTO NEGATIVE (NEGATIVE); RBC, URINE AUTO 0 /HPF (0-3); SPECIFIC GRAVITY URINE AUTO 1.008 (1.002-1.035); SQUAMOUS EPITHELIAL CELL UR AU 0 /HPF (0-6); UROBILINOGEN, URINE AUTO 0.2 mg/dL (0.0-2.0); WBC, URINE AUTO 3 /HPF (0-3)
[2020-04-11 08:15] LABS: ALBUMIN 3.6 GM/DL (3.2-5.2); BLOOD UREA NITROGEN 13 MG/DL (7-18); CARBON DIOXIDE LEVEL 34 MEQ/L (21-32); CHLORIDE LEVEL 98 MEQ/L (98-107); CREATININE FOR GFR 1.12 MG/DL (0.55-1.30); GLOMERULAR FILTRATION RATE > 60.0 (>60); GLUCOSE, FASTING 199 MG/DL (70-100); MAGNESIUM LEVEL 1.8 MG/DL (1.8-2.4); PHOSPHORUS LEVEL 4.2 MG/DL (2.5-4.9); POTASSIUM SERUM 4.4 MEQ/L (3.5-5.1); SODIUM LEVEL 138 MEQ/L (136-145)
[2020-04-11 08:16] LABS: CREATININE,RANDOM URINE 35.3 MG/DL; TOTAL PROTEIN,RANDOM URINE 9.9 MG/DL (0.0-12.0)
== END ==
LOC: M LAB 07:10
PROVIDERS: ATTEND Physician Assistant Surgical
DX: N18.5 Chronic kidney disease, stage 5 (principal); Z94.0 Kidney transplant status; D84.9 Immunodeficiency, unspecified; Z79.899 Other long term (current) drug therapy

== ENCOUNTER → 2020-05-16 | Outpatient (CLI) | payer MEDICARE, MEDICAID | LOC: M LAB 14:33 | PROVIDERS: ATTEND Transplant Surgery | DX: Z01.818 Encounter for other preprocedural examination (principal) ==

== ENCOUNTER → 2020-05-16 | Outpatient (CLI) | payer MEDICARE, MEDICAID ==
[2020-05-16 15:28] LABS: BASO # 0.1 10^3/uL (0.0-0.2); EOS # 0.3 10^3/uL (0.0-0.5); EOS % 5.8 % (0.0-3.0); HEMATOCRIT 35.3 % (36.0-47.0); HEMOGLOBIN 11.1 g/dl (12.0-15.5); LYMPH # 1.6 10^3/uL (1.5-5.0); LYMPH % 27.7 % (24.0-44.0); MEAN CORPUSCULAR HGB CONC 31.4 g/dl (32.0-36.5); MEAN CORPUSCULAR VOLUME 98.6 fl (80.0-96.0); MONO # 0.5 10^3/uL (0.0-0.8); MONO % 8.7 % (0.0-5.0); NEUTROPHILS # 3.3 10^3/uL (1.5-8.5); NEUTROPHILS % 56.6 % (36.0-66.0); PLATELET COUNT, AUTOMATED 494 10^3/uL (150-450); RED BLOOD COUNT 3.58 10^6/uL (4.00-5.40); WHITE BLOOD COUNT 5.9 10^3/uL (4.0-10.0)
[2020-05-16 15:37] LABS: APPEARANCE, URINE HAZY (CLEAR); BACTERIA, URINE AUTO 2+ (NEGATIVE); BILIRUBIN, URINE AUTO NEGATIVE (NEGATIVE); BLOOD, URINE BLOOD NEGATIVE (NEGATIVE); COLOR, URINE YELLOW (YELLOW); GLUCOSE, URINE (UA) AUTO 3+ mg/dL (NEGATIVE); KETONE, URINE AUTO TRACE mg/dL (NEGATIVE); LEUKOCYTE ESTERASE, URINE AUTO 1+ (NEGATIVE); NITRITE, URINE AUTO POSITIVE (NEGATIVE); PROTEIN, URINE AUTO NEGATIVE (NEGATIVE); RBC, URINE AUTO 2 /HPF (0-3); SPECIFIC GRAVITY URINE AUTO 1.018 (1.002-1.035); SQUAMOUS EPITHELIAL CELL UR AU 4 /HPF (0-6); UROBILINOGEN, URINE AUTO 0.2 mg/dL (0.0-2.0); WBC, URINE AUTO 50 /HPF (0-3)
[2020-05-16 15:49] LABS: ALBUMIN 3.3 GM/DL (3.2-5.2); BLOOD UREA NITROGEN 16 MG/DL (7-18); CALCIUM LEVEL 9.7 MG/DL (8.5-10.1); CARBON DIOXIDE LEVEL 33 MEQ/L (21-32); CHLORIDE LEVEL 98 MEQ/L (98-107); CREATININE FOR GFR 1.09 MG/DL (0.55-1.30); GLOMERULAR FILTRATION RATE > 60.0 (>60); GLUCOSE, FASTING 223 MG/DL (70-100); MAGNESIUM LEVEL 1.9 MG/DL (1.8-2.4); PHOSPHORUS LEVEL 3.5 MG/DL (2.5-4.9); POTASSIUM SERUM 4.3 MEQ/L (3.5-5.1); SODIUM LEVEL 135 MEQ/L (136-145); TOTAL PROTEIN,RANDOM URINE 27.8 MG/DL (0.0-12.0)
== END ==
LOC: M LAB 14:27
PROVIDERS: ATTEND Physician Assistant Surgical
DX: Z94.0 Kidney transplant status (principal); N18.5 Chronic kidney disease, stage 5; D84.9 Immunodeficiency, unspecified; Z79.899 Other long term (current) drug therapy

== ENCOUNTER → 2020-06-25 | Outpatient (CLI) | payer MEDICARE, MEDICAID ==
[2020-06-25 16:02] LABS: BASO # 0.1 10^3/uL (0.0-0.2); BASO % 0.9 % (0.0-1.0); EOS # 0.3 10^3/uL (0.0-0.5); EOS % 5.8 % (0.0-3.0); HEMATOCRIT 37.5 % (36.0-47.0); HEMOGLOBIN 11.9 g/dl (12.0-15.5); LYMPH # 1.6 10^3/uL (1.5-5.0); LYMPH % 29.6 % (24.0-44.0); MEAN CORPUSCULAR HEMOGLOBIN 30.5 pg (27.0-33.0); MEAN CORPUSCULAR HGB CONC 31.7 g/dl (32.0-36.5); MEAN CORPUSCULAR VOLUME 96.2 fl (80.0-96.0); MONO # 0.5 10^3/uL (0.0-0.8); MONO % 9.9 % (2.0-8.0); NEUTROPHILS # 2.9 10^3/uL (1.5-8.5); NEUTROPHILS % 53.6 % (36.0-66.0); PLATELET COUNT, AUTOMATED 392 10^3/uL (150-450); WHITE BLOOD COUNT 5.4 10^3/uL (4.0-10.0)
[2020-06-25 16:06] LABS: AMORPHOUS SEDIMENT SMALL (NEGATIVE); APPEARANCE, URINE CLOUDY (CLEAR); BACTERIA, URINE AUTO NEGATIVE (NEGATIVE); BILIRUBIN, URINE AUTO NEGATIVE (NEGATIVE); BLOOD, URINE BLOOD NEGATIVE (NEGATIVE); COLOR, URINE YELLOW (YELLOW); GLUCOSE, URINE (UA) AUTO 3+ mg/dL (NEGATIVE); KETONE, URINE AUTO NEGATIVE (NEGATIVE); LEUKOCYTE ESTERASE, URINE AUTO NEGATIVE (NEGATIVE); MUCUS, URINE SMALL (NEGATIVE); NITRITE, URINE AUTO NEGATIVE (NEGATIVE); PROTEIN, URINE AUTO NEGATIVE (NEGATIVE); RBC, URINE AUTO 1 /HPF (0-3); SPECIFIC GRAVITY URINE AUTO 1.017 (1.002-1.035); SQUAMOUS EPITHELIAL CELL UR AU 3 /HPF (0-6); UROBILINOGEN, URINE AUTO 0.2 mg/dL (0.0-2.0); WBC, URINE AUTO 14 /HPF (0-3)
[2020-06-25 16:25] LABS: TOTAL PROTEIN,RANDOM URINE 19.7 MG/DL (0.0-12.0)
[2020-06-25 16:27] LABS: ALBUMIN 3.9 GM/DL (3.2-5.2); BLOOD UREA NITROGEN 15 MG/DL (7-18); CALCIUM LEVEL 9.3 MG/DL (8.5-10.1); CARBON DIOXIDE LEVEL 36 MEQ/L (21-32); CHLORIDE LEVEL 98 MEQ/L (98-107); CREATININE FOR GFR 1.13 MG/DL (0.55-1.30); GLOMERULAR FILTRATION RATE > 60.0 (>60); GLUCOSE, FASTING 187 MG/DL (70-100); MAGNESIUM LEVEL 1.9 MG/DL (1.8-2.4); PHOSPHORUS LEVEL 4.1 MG/DL (2.5-4.9); POTASSIUM SERUM 4.8 MEQ/L (3.5-5.1); SODIUM LEVEL 139 MEQ/L (136-145)
== END ==
LOC: M LAB 11:40
PROVIDERS: ATTEND Physician Assistant Surgical
DX: N18.5 Chronic kidney disease, stage 5 (principal); D84.9 Immunodeficiency, unspecified; Z94.0 Kidney transplant status; Z79.899 Other long term (current) drug therapy

== ENCOUNTER → 2020-06-25 | Outpatient (CLI) | payer MEDICARE, MEDICAID | LOC: M LAB 11:30 | PROVIDERS: ATTEND Transplant Surgery | DX: Z01.818 Encounter for other preprocedural examination (principal) ==

== ENCOUNTER → 2020-08-17 | Outpatient (CLI) | payer MEDICARE, OTHER | LOC: M LAB 06:18 | PROVIDERS: ATTEND Physician Assistant Surgical | DX: D84.9 Immunodeficiency, unspecified (principal); Z94.0 Kidney transplant status; Z79.899 Other long term (current) drug therapy ==

== ENCOUNTER → 2020-08-17 | Outpatient (CLI) | payer MEDICARE, OTHER ==
[2020-08-17 06:57] LABS: APPEARANCE, URINE CLEAR (CLEAR); BACTERIA, URINE AUTO NEGATIVE (NEGATIVE); BILIRUBIN, URINE AUTO NEGATIVE (NEGATIVE); BLOOD, URINE BLOOD NEGATIVE (NEGATIVE); COLOR, URINE YELLOW (YELLOW); GLUCOSE, URINE (UA) AUTO 3+ mg/dL (NEGATIVE); KETONE, URINE AUTO TRACE mg/dL (NEGATIVE); LEUKOCYTE ESTERASE, URINE AUTO NEGATIVE (NEGATIVE); NITRITE, URINE AUTO NEGATIVE (NEGATIVE); PROTEIN, URINE AUTO NEGATIVE (NEGATIVE); RBC, URINE AUTO 1 /HPF (0-3); SPECIFIC GRAVITY URINE AUTO 1.007 (1.002-1.035); SQUAMOUS EPITHELIAL CELL UR AU 1 /HPF (0-6); UROBILINOGEN, URINE AUTO 0.2 mg/dL (0.0-2.0); WBC, URINE AUTO 1 /HPF (0-3)
[2020-08-17 07:02] LABS: BASO # 0.1 10^3/uL (0.0-0.2); EOS # 0.4 10^3/uL (0.0-0.5); EOS % 5.8 % (0.0-3.0); HEMATOCRIT 34.8 % (36.0-47.0); HEMOGLOBIN 11.5 g/dl (12.0-15.5); LYMPH # 3.1 10^3/uL (1.5-5.0); LYMPH % 49.8 % (24.0-44.0); MEAN CORPUSCULAR HEMOGLOBIN 31.5 pg (27.0-33.0); MEAN CORPUSCULAR VOLUME 95.3 fl (80.0-96.0); MONO # 0.6 10^3/uL (0.0-0.8); MONO % 8.8 % (2.0-8.0); NEUTROPHILS # 2.2 10^3/uL (1.5-8.5); NEUTROPHILS % 34.4 % (36.0-66.0); PLATELET COUNT, AUTOMATED 363 10^3/uL (150-450); RED BLOOD COUNT 3.65 10^6/uL (4.00-5.40); WHITE BLOOD COUNT 6.2 10^3/uL (4.0-10.0)
[2020-08-17 07:26] LABS: ALBUMIN 3.9 GM/DL (3.2-5.2); BLOOD UREA NITROGEN 13 MG/DL (7-18); CALCIUM LEVEL 9.4 MG/DL (8.5-10.1); CARBON DIOXIDE LEVEL 34 MEQ/L (21-32); CHLORIDE LEVEL 96 MEQ/L (98-107); CREATININE FOR GFR 1.07 MG/DL (0.55-1.30); GLOMERULAR FILTRATION RATE > 60.0 (>60); GLUCOSE, FASTING 107 MG/DL (70-100); SODIUM LEVEL 133 MEQ/L (136-145)
[2020-08-17 07:32] LABS: CREATININE,RANDOM URINE 34.7 MG/DL; TOTAL PROTEIN,RANDOM URINE 7.4 MG/DL (0.0-12.0)
== END ==
LOC: M LAB 06:20
PROVIDERS: ATTEND Transplant Surgery
DX: D84.9 Immunodeficiency, unspecified (principal); Z79.899 Other long term (current) drug therapy; Z94.0 Kidney transplant status

== ENCOUNTER → 2020-09-26 | Outpatient (CLI) | payer MEDICARE, OTHER ==
[~2020-09-26] MED LIST changes: +FERR325T19 PO; -FERR325T20 PO
== END ==
LOC: M LAB 10:08
PROVIDERS: ATTEND Transplant Surgery
DX: Z01.818 Encounter for other preprocedural examination (principal)

== ENCOUNTER → 2020-09-26 | Outpatient (CLI) | payer MEDICARE, OTHER ==
[2020-09-26 11:01] LABS: BASO # 0.1 10^3/uL (0.0-0.2); BASO % 1.2 % (0.0-1.0); EOS # 0.4 10^3/uL (0.0-0.5); EOS % 6.5 % (0.0-3.0); HEMATOCRIT 37.8 % (36.0-47.0); LYMPH # 1.5 10^3/uL (1.5-5.0); LYMPH % 26.2 % (24.0-44.0); MEAN CORPUSCULAR HEMOGLOBIN 31.3 pg (27.0-33.0); MEAN CORPUSCULAR HGB CONC 31.7 g/dl (32.0-36.5); MEAN CORPUSCULAR VOLUME 98.7 fl (80.0-96.0); MONO # 0.5 10^3/uL (0.0-0.8); MONO % 8.6 % (2.0-8.0); NEUTROPHILS # 3.3 10^3/uL (1.5-8.5); NEUTROPHILS % 57.3 % (36.0-66.0); PLATELET COUNT, AUTOMATED 378 10^3/uL (150-450); RED BLOOD COUNT 3.83 10^6/uL (4.00-5.40); WHITE BLOOD COUNT 5.7 10^3/uL (4.0-10.0)
[2020-09-26 11:20] LABS: ALBUMIN 3.9 GM/DL (3.2-5.2); CALCIUM LEVEL 9.1 MG/DL (8.5-10.1); CREATININE FOR GFR 1.2 MG/DL (0.55-1.30); GLOMERULAR FILTRATION RATE 56.2 (>60); MAGNESIUM LEVEL 1.9 MG/DL (1.8-2.4); PHOSPHORUS LEVEL 2.8 MG/DL (2.5-4.9); POTASSIUM SERUM 4.1 MEQ/L (3.5-5.1)
[2020-09-26 11:21] LABS: CREATININE,RANDOM URINE 52.5 MG/DL; TOTAL PROTEIN,RANDOM URINE 15.9 MG/DL (0.0-12.0)
[2020-09-26 12:06] LABS: APPEARANCE, URINE CLEAR (CLEAR); BACTERIA, URINE AUTO NEGATIVE (NEGATIVE); BILIRUBIN, URINE AUTO NEGATIVE (NEGATIVE); BLOOD, URINE BLOOD NEGATIVE (NEGATIVE); COLOR, URINE YELLOW (YELLOW); GLUCOSE, URINE (UA) AUTO 3+ mg/dL (NEGATIVE); KETONE, URINE AUTO NEGATIVE (NEGATIVE); LEUKOCYTE ESTERASE, URINE AUTO NEGATIVE (NEGATIVE); NITRITE, URINE AUTO NEGATIVE (NEGATIVE); PROTEIN, URINE AUTO NEGATIVE (NEGATIVE); RBC, URINE AUTO 1 /HPF (0-3); SPECIFIC GRAVITY URINE AUTO 1.012 (1.002-1.035); SQUAMOUS EPITHELIAL CELL UR AU 1 /HPF (0-6); UROBILINOGEN, URINE AUTO 0.2 mg/dL (0.0-2.0); WBC, URINE AUTO 0 /HPF (0-3)
== END ==
LOC: M LAB 10:05
PROVIDERS: ATTEND Physician Assistant Surgical
DX: Z94.0 Kidney transplant status (principal); N18.5 Chronic kidney disease, stage 5; D84.9 Immunodeficiency, unspecified; Z79.899 Other long term (current) drug therapy

== ENCOUNTER → 2020-11-09 | Outpatient (CLI) | payer MEDICARE, MEDICAID | LOC: M LAB 08:55 | PROVIDERS: ATTEND Nurse Practitioner Family | DX: Z01.818 Encounter for other preprocedural examination (principal) ==

== ENCOUNTER → 2020-11-09 | Outpatient (CLI) | payer MEDICARE, MEDICAID ==
[2020-11-09 10:54] LABS: FERRITIN 130 NG/ML (8-252); FREE T4 0.92 NG/DL (0.76-1.46)
[2020-11-09 10:57] LABS: TOTAL 25(OH) VITAMIN D 32.2 NG/ML (30.0-100.0)
[2020-11-09 11:37] LABS: HIV 1&2 SCREEN CENTAUR NEGATIVE (NEGATIVE)
[2020-11-09 11:50] LABS: GC DNA AMPLIFICATION NEGATIVE (NEGATIVE)
== END ==
LOC: M LAB 08:44
PROVIDERS: ATTEND Nurse Practitioner Family
DX: D64.9 Anemia, unspecified (principal); E55.9 Vitamin D deficiency, unspecified; E03.9 Hypothyroidism, unspecified; Z20.2 Contact with and (suspected) exposure to infections with a predominantly sexual mode of transmission

== ENCOUNTER → 2020-11-09 | Outpatient (CLI) | payer MEDICARE, MEDICAID ==
[2020-11-09 10:15] LABS: APPEARANCE, URINE HAZY (CLEAR); BACTERIA, URINE AUTO NEGATIVE (NEGATIVE); BILIRUBIN, URINE AUTO NEGATIVE (NEGATIVE); BLOOD, URINE BLOOD NEGATIVE (NEGATIVE); COLOR, URINE YELLOW (YELLOW); GLUCOSE, URINE (UA) AUTO 1+ mg/dL (NEGATIVE); KETONE, URINE AUTO TRACE mg/dL (NEGATIVE); LEUKOCYTE ESTERASE, URINE AUTO NEGATIVE (NEGATIVE); NITRITE, URINE AUTO NEGATIVE (NEGATIVE); PROTEIN, URINE AUTO NEGATIVE (NEGATIVE); RBC, URINE AUTO 0 /HPF (0-3); SPECIFIC GRAVITY URINE AUTO 1.012 (1.002-1.035); SQUAMOUS EPITHELIAL CELL UR AU 4 /HPF (0-6); UROBILINOGEN, URINE AUTO 0.2 mg/dL (0.0-2.0); WBC, URINE AUTO 0 /HPF (0-3)
[2020-11-09 10:23] LABS: BASO # 0.1 10^3/uL (0.0-0.2); BASO % 1.1 % (0.0-1.0); EOS # 0.4 10^3/uL (0.0-0.5); EOS % 7.3 % (0.0-3.0); HEMATOCRIT 38.3 % (36.0-47.0); HEMOGLOBIN 12.6 g/dl (12.0-15.5); LYMPH # 1.8 10^3/uL (1.5-5.0); LYMPH % 33.4 % (24.0-44.0); MEAN CORPUSCULAR HEMOGLOBIN 32.8 pg (27.0-33.0); MEAN CORPUSCULAR HGB CONC 32.9 g/dl (32.0-36.5); MEAN CORPUSCULAR VOLUME 99.7 fl (80.0-96.0); MONO # 0.6 10^3/uL (0.0-0.8); MONO % 10.8 % (2.0-8.0); NEUTROPHILS # 2.6 10^3/uL (1.5-8.5); NEUTROPHILS % 47.2 % (36.0-66.0); PLATELET COUNT, AUTOMATED 440 10^3/uL (150-450); RED BLOOD COUNT 3.84 10^6/uL (4.00-5.40); WHITE BLOOD COUNT 5.5 10^3/uL (4.0-10.0)
[2020-11-09 10:59] LABS: ALBUMIN 4.1 GM/DL (3.2-5.2); CALCIUM LEVEL 9.3 MG/DL (8.5-10.1); CREATININE FOR GFR 1.15 MG/DL (0.55-1.30); FREE T4 0.9 NG/DL (0.76-1.46); MAGNESIUM LEVEL 2.1 MG/DL (1.8-2.4); PERCENT SATURATION 26.6 % (13.2-45.0); PHOSPHORUS LEVEL 3.3 MG/DL (2.5-4.9); POTASSIUM SERUM 4.4 MEQ/L (3.5-5.1); THYROID STIMULATING HORMONE 2.15 uIU/ML (0.358-3.740)
== END ==
LOC: M LAB 08:53
PROVIDERS: ATTEND Internal Medicine Nephrology
DX: Z79.899 Other long term (current) drug therapy (principal); Z94.0 Kidney transplant status; N18.5 Chronic kidney disease, stage 5; D84.9 Immunodeficiency, unspecified

== ENCOUNTER → 2021-01-03 | Outpatient (CLI) | payer MEDICARE, MEDICAID ==
[2021-01-03 10:50] LABS: ALBUMIN 3.8 GM/DL (3.2-5.2); CALCIUM LEVEL 9.3 MG/DL (8.5-10.1); CREATININE FOR GFR 1.16 MG/DL (0.55-1.30); GLOMERULAR FILTRATION RATE 58.4 (>60); PHOSPHORUS LEVEL 3.2 MG/DL (2.5-4.9); POTASSIUM SERUM 4.2 MEQ/L (3.5-5.1)
[2021-01-03 10:58] LABS: APPEARANCE, URINE CLEAR (CLEAR); BACTERIA, URINE AUTO NEGATIVE (NEGATIVE); BILIRUBIN, URINE AUTO NEGATIVE (NEGATIVE); BLOOD, URINE BLOOD NEGATIVE (NEGATIVE); COLOR, URINE STRAW (YELLOW); GLUCOSE, URINE (UA) AUTO 2+ mg/dL (NEGATIVE); KETONE, URINE AUTO NEGATIVE (NEGATIVE); LEUKOCYTE ESTERASE, URINE AUTO NEGATIVE (NEGATIVE); NITRITE, URINE AUTO NEGATIVE (NEGATIVE); PROTEIN, URINE AUTO NEGATIVE (NEGATIVE); RBC, URINE AUTO 0 /HPF (0-3); SPECIFIC GRAVITY URINE AUTO 1.002 (1.002-1.035); SQUAMOUS EPITHELIAL CELL UR AU 1 /HPF (0-6); UROBILINOGEN, URINE AUTO 0.2 mg/dL (0.0-2.0); WBC, URINE AUTO 1 /HPF (0-3)
[2021-01-03 11:31] LABS: CREATININE,RANDOM URINE < 13.0 MG/DL
[2021-01-03 12:15] LABS: BASO # 0.1 10^3/uL (0.0-0.2); BASO % 1.1 % (0.0-1.0); EOS # 0.4 10^3/uL (0.0-0.5); EOS % 6.2 % (0.0-3.0); HEMATOCRIT 35.1 % (36.0-47.0); HEMOGLOBIN 11.9 g/dl (12.0-15.5); LYMPH # 2.4 10^3/uL (1.5-5.0); LYMPH % 36.2 % (24.0-44.0); MEAN CORPUSCULAR HEMOGLOBIN 33.1 pg (27.0-33.0); MEAN CORPUSCULAR HGB CONC 33.9 g/dl (32.0-36.5); MEAN CORPUSCULAR VOLUME 97.8 fl (80.0-96.0); MONO # 0.8 10^3/uL (0.0-0.8); MONO % 11.4 % (2.0-8.0); NEUTROPHILS % 44.8 % (36.0-66.0); PLATELET COUNT, AUTOMATED 395 10^3/uL (150-450); RED BLOOD COUNT 3.59 10^6/uL (4.00-5.40); WHITE BLOOD COUNT 6.7 10^3/uL (4.0-10.0)
== END ==
LOC: M LAB 08:29
PROVIDERS: ATTEND Internal Medicine Nephrology
DX: Z51.81 Encounter for therapeutic drug level monitoring (principal); Z79.899 Other long term (current) drug therapy; Z94.0 Kidney transplant status; N18.5 Chronic kidney disease, stage 5; D84.9 Immunodeficiency, unspecified

== ENCOUNTER → 2021-01-03 | Outpatient (CLI) | payer MEDICARE, MEDICAID | LOC: M LAB 08:27 | PROVIDERS: ATTEND Nurse Practitioner Family | DX: Z01.818 Encounter for other preprocedural examination (principal); Z76.82 Awaiting organ transplant status ==

== ENCOUNTER → 2021-03-07 | Outpatient (CLI) | payer MEDICARE, MEDICAID | LOC: M LAB 07:16 | PROVIDERS: ATTEND Nurse Practitioner Family | DX: Z01.818 Encounter for other preprocedural examination (principal) ==

== ENCOUNTER → 2021-03-07 | Outpatient (CLI) | payer MEDICARE, MEDICAID ==
[2021-03-07 08:18] LABS: BASO # 0.1 10^3/uL (0.0-0.2); BASO % 1.6 % (0.0-1.0); EOS # 0.5 10^3/uL (0.0-0.5); HEMATOCRIT 36.3 % (36.0-47.0); HEMOGLOBIN 11.7 g/dl (12.0-15.5); LYMPH # 2.3 10^3/uL (1.5-5.0); LYMPH % 40.6 % (24.0-44.0); MEAN CORPUSCULAR HEMOGLOBIN 32.2 pg (27.0-33.0); MEAN CORPUSCULAR HGB CONC 32.2 g/dl (32.0-36.5); MONO # 0.5 10^3/uL (0.0-0.8); MONO % 9.4 % (2.0-8.0); NEUTROPHILS # 2.2 10^3/uL (1.5-8.5); PLATELET COUNT, AUTOMATED 370 10^3/uL (150-450); RED BLOOD COUNT 3.63 10^6/uL (4.00-5.40); WHITE BLOOD COUNT 5.5 10^3/uL (4.0-10.0)
[2021-03-07 08:21] LABS: APPEARANCE, URINE CLEAR (CLEAR); BACTERIA, URINE AUTO NEGATIVE (NEGATIVE); BILIRUBIN, URINE AUTO NEGATIVE (NEGATIVE); BLOOD, URINE BLOOD NEGATIVE (NEGATIVE); COLOR, URINE YELLOW (YELLOW); GLUCOSE, URINE (UA) AUTO 3+ mg/dL (NEGATIVE); KETONE, URINE AUTO NEGATIVE (NEGATIVE); LEUKOCYTE ESTERASE, URINE AUTO NEGATIVE (NEGATIVE); NITRITE, URINE AUTO NEGATIVE (NEGATIVE); PROTEIN, URINE AUTO NEGATIVE (NEGATIVE); RBC, URINE AUTO 0 /HPF (0-3); SPECIFIC GRAVITY URINE AUTO 1.006 (1.002-1.035); SQUAMOUS EPITHELIAL CELL UR AU 2 /HPF (0-6); UROBILINOGEN, URINE AUTO 0.2 mg/dL (0.0-2.0); WBC, URINE AUTO 1 /HPF (0-3)
[2021-03-07 08:25] LABS: ALBUMIN 3.4 GM/DL (3.2-5.2); BLOOD UREA NITROGEN 10 MG/DL (7-18); CALCIUM LEVEL 9.1 MG/DL (8.5-10.1); CARBON DIOXIDE LEVEL 34 MEQ/L (21-32); CHLORIDE LEVEL 102 MEQ/L (98-107); CREATININE FOR GFR 1.06 MG/DL (0.55-1.30); GLOMERULAR FILTRATION RATE > 60.0 (>60); GLUCOSE, FASTING 91 MG/DL (70-100); MAGNESIUM LEVEL 2.4 MG/DL (1.8-2.4); POTASSIUM SERUM 4.2 MEQ/L (3.5-5.1); SODIUM LEVEL 139 MEQ/L (136-145)
[2021-03-07 08:44] LABS: CREATININE,RANDOM URINE 48.4 MG/DL; TOTAL PROTEIN,RANDOM URINE 14.2 MG/DL (0.0-12.0)
== END ==
LOC: M LAB 07:14
PROVIDERS: ATTEND Internal Medicine Nephrology
DX: Z94.0 Kidney transplant status (principal); D84.9 Immunodeficiency, unspecified; N18.5 Chronic kidney disease, stage 5; Z79.899 Other long term (current) drug therapy

== ENCOUNTER → 2021-04-17 | Outpatient (CLI) | payer MEDICARE ==
[~2021-04-17] MED LIST changes: -LEVO250T12 PO; +LEVO250T3 PO
== END ==
LOC: M PLAIMG 08:41
PROVIDERS: ATTEND Internal Medicine
DX: Z01.818 Encounter for other preprocedural examination (principal); Z94.0 Kidney transplant status

== ENCOUNTER → 2021-06-02 | Outpatient (CLI) | payer MEDICARE, MEDICAID ==
[2021-06-02 17:34] LABS: BASO # 0.1 10^3/uL (0.0-0.2); BASO % 1.3 % (0.0-1.0); EOS # 0.5 10^3/uL (0.0-0.5); HEMATOCRIT 37.1 % (36.0-47.0); HEMOGLOBIN 12.3 g/dl (12.0-15.5); LYMPH # 1.8 10^3/uL (1.5-5.0); LYMPH % 27.3 % (24.0-44.0); MEAN CORPUSCULAR HEMOGLOBIN 32.2 pg (27.0-33.0); MEAN CORPUSCULAR HGB CONC 33.2 g/dl (32.0-36.5); MEAN CORPUSCULAR VOLUME 97.1 fl (80.0-96.0); MONO # 0.6 10^3/uL (0.0-0.8); MONO % 9.2 % (2.0-8.0); NEUTROPHILS # 3.6 10^3/uL (1.5-8.5); NEUTROPHILS % 54.1 % (36.0-66.0); PLATELET COUNT, AUTOMATED 385 10^3/uL (150-450); RED BLOOD COUNT 3.82 10^6/uL (4.00-5.40); WHITE BLOOD COUNT 6.7 10^3/uL (4.0-10.0)
[2021-06-02 17:43] LABS: HEMOGLOBIN A1c 12.1 %
[2021-06-02 18:06] LABS: FERRITIN 123 NG/ML (8-252); FREE T4 0.95 NG/DL (0.76-1.46); IRON (FE) 88 UG/DL (50-170); TOTAL 25(OH) VITAMIN D 28.1 NG/ML (30.0-100.0)
[2021-06-02 18:45] LABS: HEPATITIS B CORE ANTIBODY IGM NEGATIVE (NEGATIVE)
[2021-06-05 11:02] LABS: ALT/SGPT 41 U/L (12-78); BILIRUBIN,TOTAL 0.3 MG/DL (0.2-1.0); BLOOD UREA NITROGEN 14 MG/DL (7-18); CALCIUM LEVEL 9.7 MG/DL (8.5-10.1); CARBON DIOXIDE LEVEL 38 MEQ/L (21-32); CHLORIDE LEVEL 96 MEQ/L (98-107); CREATININE FOR GFR 1.24 MG/DL (0.55-1.30); GLOMERULAR FILTRATION RATE 54.1 (>60); GLUCOSE, FASTING 160 MG/DL (70-100); POTASSIUM SERUM 4.3 MEQ/L (3.5-5.1); SODIUM LEVEL 136 MEQ/L (136-145); TOTAL PROTEIN 6.8 GM/DL (6.4-8.2)
== END ==
LOC: M PLALAB 15:29
PROVIDERS: ATTEND Physician Assistant Medical
DX: D64.9 Anemia, unspecified (principal); E55.9 Vitamin D deficiency, unspecified; E03.9 Hypothyroidism, unspecified; E10.65 Type 1 diabetes mellitus with hyperglycemia; Z20.2 Contact with and (suspected) exposure to infections with a predominantly sexual mode of transmission; Z79.899 Other long term (current) drug therapy

== ENCOUNTER → 2021-08-09 | Outpatient (REF) | payer MEDICARE, MEDICAID | LOC: M SFHCPLAZ 12:53 | PROVIDERS: ATTEND Physician Assistant | DX: A60.04 Herpesviral vulvovaginitis (principal) ==

== ENCOUNTER → 2021-08-28 | Outpatient (CLI) | payer MEDICARE, MEDICAID | LOC: M LAB 09:53 | PROVIDERS: ATTEND Nurse Practitioner Family | DX: Z01.818 Encounter for other preprocedural examination (principal) ==

== ENCOUNTER 2022-11-12 01:10 | Inpatient (IN) | payer MEDICARE, MEDICAID ==
[~2022-11-12] VITALS: Ht 152.4 cm; Wt 45.5 kg
[~2022-11-12 01:10] MED LIST changes: +ADME100I2 SUBQ; +BASA100I SUBQ; -HYDR200T3 PO; +HYDR200T46 PO; +LEVO1TAB38 PO; -LEVO250T3 PO; +LORA1TAB23 PO; -LORA1TAB4 PO
[2022-11-12 02:17] LABS: BASO % 0.4 % (0.0-1.0); EOS # 0.1 10^3/uL (0.0-0.5); EOS % 2.1 % (0.0-3.0); HEMATOCRIT 26.5 % (36.0-47.0); HEMOGLOBIN 9.6 g/dl (12.0-15.5); LYMPH # 1.9 10^3/uL (1.5-5.0); LYMPH % 28.4 % (24.0-44.0); MEAN CORPUSCULAR HEMOGLOBIN 33.1 pg (27.0-33.0); MEAN CORPUSCULAR HGB CONC 36.2 g/dl (32.0-36.5); MEAN CORPUSCULAR VOLUME 91.4 fl (80.0-96.0); MONO # 0.6 10^3/uL (0.0-0.8); MONO % 9.1 % (2.0-8.0); NEUTROPHILS # 4.1 10^3/uL (1.5-8.5); NEUTROPHILS % 59.7 % (36.0-66.0); PLATELET COUNT, AUTOMATED 449 10^3/uL (150-450); WHITE BLOOD COUNT 6.8 10^3/uL (4.0-10.0)
[2022-11-12 02:38] LABS: ALBUMIN 3.8 G/DL (3.2-5.2); BILIRUBIN,DIRECT 0.1 MG/DL (<0.4); BILIRUBIN,TOTAL 0.5 MG/DL (0.3-1.2)
[2022-11-12] MEDS ORDERED: ONDANSETRON 4MG 2ML VIAL IV ONE (04:20)
[2022-11-12] MEDS ORDERED: NS 1,000 ML IV ONE ×2 (04:20→06:35)
[2022-11-12 06:14] LABS: BASO % 0.5 % (0.0-1.0); EOS # 0.1 10^3/uL (0.0-0.5); EOS % 1.8 % (0.0-3.0); HEMATOCRIT 26.8 % (36.0-47.0); HEMOGLOBIN 9.5 g/dl (12.0-15.5); LYMPH # 1.6 10^3/uL (1.5-5.0); MEAN CORPUSCULAR HEMOGLOBIN 32.9 pg (27.0-33.0); MEAN CORPUSCULAR HGB CONC 35.4 g/dl (32.0-36.5); MEAN CORPUSCULAR VOLUME 92.7 fl (80.0-96.0); MONO # 0.5 10^3/uL (0.0-0.8); MONO % 8.4 % (2.0-8.0); NEUTROPHILS # 3.8 10^3/uL (1.5-8.5); NEUTROPHILS % 62.8 % (36.0-66.0); PLATELET COUNT, AUTOMATED 408 10^3/uL (150-450); RED BLOOD COUNT 2.89 10^6/uL (4.00-5.40); WHITE BLOOD COUNT 6.1 10^3/uL (4.0-10.0)
[2022-11-12 06:36] LABS: BLOOD UREA NITROGEN 55 MG/DL (9-23); CALCIUM LEVEL 14.4 MG/DL (8.5-10.1); CARBON DIOXIDE LEVEL > 40.0 MMOL/L (20-31); CHLORIDE LEVEL 78 MMOL/L (98-107); CREATININE FOR GFR 3.59 MG/DL (0.55-1.30); GLOMERULAR FILTRATION RATE 15.6 (>60); GLUCOSE, FASTING 196 MG/DL (60-100); POTASSIUM SERUM 2.7 MMOL/L (3.5-5.1); SODIUM LEVEL 127 MMOL/L (136-145)
[2022-11-12] MEDS ORDERED: KCL 10MEQ/100ML SWI (KRUN) 10 MEQ in IV 1 EA IV ONE ×2 (06:50→08:00)
[2022-11-12] MEDS ORDERED: hydrALAZINE 20MG/ML 1ML VIAL IV ONE (06:50)
[2022-11-12 07:12] LABS: MAGNESIUM LEVEL 1.9 MG/DL (1.8-2.4)
[2022-11-12] MEDS ORDERED: MED REC IN PROGRESS XX SCH (07:40)
[2022-11-12] MEDS ORDERED: NS 1,000 ML IV SCH (09:00)
[2022-11-12] MEDS ORDERED: MYCOPHENOLATE MOFETIL 250 MG CAP (J7517) PO SCH (09:00)
[2022-11-12] MEDS ORDERED: predniSONE 5 MG TAB PO SCH (09:00)
[2022-11-12] MEDS ORDERED: TACROLIMUS 1MG CAP PO SCH (09:00)
[2022-11-12] MEDS ORDERED: hydrALAZINE 20MG/ML 1ML VIAL IV PRN (09:00)
[2022-11-12] MEDS ORDERED: MULTIVITAMINS/MINERALS THERAP 1 TAB PO SCH (09:00)
[2022-11-12] MEDS ORDERED: ESCITALOPRAM OXALATE 10 MG TAB (LEXAPRO) PO SCH (09:00)
[2022-11-12] MEDS ORDERED: DEXTROSE 50% 50ML SYRINGE IV PRN (09:00)
[2022-11-12] MEDS ORDERED: ONDANSETRON 4MG 2ML VIAL IV PRN (09:00)
[2022-11-12] MEDS ORDERED: GLUCAGON INJ 1MG VIAL SC PRN (09:00)
[2022-11-12] MEDS ORDERED: GLUCOSE 4GM CHEW TABLET PO PRN (09:00)
[2022-11-12 10:37] LABS: INR 0.91; PROTHROMBIN TIME 12.5 SECONDS (12.5-14.5)
[2022-11-12 10:38] LABS: PARTIAL THROMBOPLASTIN TIME 25.8 SECONDS (24.8-34.2)
[2022-11-12 10:41] LABS: ALBUMIN 3.2 G/DL (3.2-5.2); ALKALINE PHOSPHATASE 75 U/L (46-116); ALT/SGPT 13 U/L (7.0-40); AST/SGOT 18 U/L (<34); BILIRUBIN,TOTAL 0.4 MG/DL (0.3-1.2); BLOOD UREA NITROGEN 52 MG/DL (9-23); CALCIUM LEVEL 12.5 MG/DL (8.5-10.1); CARBON DIOXIDE LEVEL > 40.0 MMOL/L (20-31); CHLORIDE LEVEL 82 MMOL/L (98-107); CREATININE FOR GFR 3.71 MG/DL (0.55-1.30); GLOMERULAR FILTRATION RATE 15.1 (>60); GLUCOSE, FASTING 189 MG/DL (60-100); POTASSIUM SERUM 3.1 MMOL/L (3.5-5.1); SODIUM LEVEL 131 MMOL/L (136-145); TOTAL PROTEIN 5.8 G/DL (5.7-8.2)
[2022-11-12] MEDS ORDERED: PANTOPRAZOLE 40MG VIAL IV SCH (11:00)
[2022-11-12 11:16] LABS: HEMOGLOBIN A1c > 14.0 % (4.0-6.0)
[2022-11-12] MEDS: POTASSIUM CHLORIDE 10MEQ SR TABLET PO SCH ×3 (11:39→16:46)
[2022-11-12] MEDS ORDERED: LEXA1TAB PO (11:52)
[2022-11-12] MEDS ORDERED: THERTAB21 PO (11:52)
[2022-11-12] MEDS ORDERED: MYCO1TAB PO ×2 (11:52)
[2022-11-12] MEDS ORDERED: PRED5TA PO (11:56)
[2022-11-12] MEDS ORDERED: TACR1CAP3 PO (11:56)
[2022-11-12] MEDS ORDERED: HOME MED LIST COMPLETE! XX SCH (12:05)
[2022-11-12] MEDS ORDERED: ACETAMINOPHEN TAB 650MG DOSE (2X325MG) PO PRN (12:30)
[2022-11-12 13:45] VITALS: BP 156/110; TEMP 97.4; O2SAT 99
[2022-11-12] MEDS: INSULIN LISPRO (NovoLOG) PER UNIT SC SCH ×2 (14:19→16:45)
[2022-11-12] MEDS ORDERED: POTA-136 PO (16:06)
[2022-11-12] MEDS ORDERED: HYDR20VI2 IV (16:06)
[2022-11-12] MEDS ORDERED: ONDA4INJ4 IV (16:06)
[2022-11-12] MEDS ORDERED: HEPA500023 SQ (16:06)
[2022-11-12] MEDS ORDERED: PANT40IN4 IV (16:06)
[2022-11-12] MEDS ORDERED: [UNRECOGNIZED DRUG - CODE] IV (16:06)
[2022-11-12 16:14] VITALS: BP 178/114; TEMP 97.4; O2SAT 100
[2022-11-12 16:45] VITALS: BP 178/114
[2022-11-12] MEDS ORDERED: cefTRIAXone SOD 1 GM in D5W MINI-BAG PLUS 50 ML IV SCH (18:00)
[2022-11-12 19:19] LABS: ALBUMIN 2.9 G/DL (3.2-5.2); BILIRUBIN,TOTAL 0.4 MG/DL (0.3-1.2); CALCIUM LEVEL 11.4 MG/DL (8.5-10.1); CREATININE FOR GFR 3.53 MG/DL (0.55-1.30); POTASSIUM SERUM 3.2 MMOL/L (3.5-5.1); TOTAL PROTEIN 5.7 G/DL (5.7-8.2)
[2022-11-12] MEDS ORDERED: INSULIN LISPRO (NovoLOG) PER UNIT SC SCH (21:00)
[2022-11-12] MEDS ORDERED: HEPARIN SOD (PORCINE) 5000UNITS/ML 1ML VIAL/SYRINGE SQ SCH (21:00)
[2022-11-12] MEDS ORDERED: LEVEMIR (INSULIN DETEMIR) 1 UNITS/0.01ML SC SCH (21:00)
== END 2022-11-12 19:01 | disposition short-term general hospital (02) | DRG 683 ==
LOC: M ED 01:10 → M ED INP 08:58 → M PCU 13:36
PROVIDERS: ADMIT Internal Medicine; ATTEND Internal Medicine
DX: N17.9 Acute kidney failure, unspecified (principal); Z94.0 Kidney transplant status; E87.1 Hypo-osmolality and hyponatremia; D84.81 Immunodeficiency due to conditions classified elsewhere; N39.0 Urinary tract infection, site not specified; K52.9 Noninfective gastroenteritis and colitis, unspecified; I12.9 Hypertensive chronic kidney disease with stage 1 through stage 4 chronic kidney disease, or unspecified chronic kidney disease; E83.52 Hypercalcemia; E86.0 Dehydration; E87.8 Other disorders of electrolyte and fluid balance, not elsewhere classified; E10.22 Type 1 diabetes mellitus with diabetic chronic kidney disease; N18.9 Chronic kidney disease, unspecified; E03.9 Hypothyroidism, unspecified; M06.9 Rheumatoid arthritis, unspecified; E87.6 Hypokalemia; I95.1 Orthostatic hypotension; D50.9 Iron deficiency anemia, unspecified; F41.9 Anxiety disorder, unspecified; K21.9 Gastro-esophageal reflux disease without esophagitis; Z79.4 Long term (current) use of insulin; Z79.890 Hormone replacement therapy; Z79.899 Other long term (current) drug therapy; Z88.6 Allergy status to analgesic agent; Z20.822 Contact with and (suspected) exposure to COVID-19

== ENCOUNTER 2023-01-22 17:01 | Emergency (ER) | payer MEDICARE, MEDICAID ==
[~2023-01-22] VITALS: Ht 154.9 cm; Wt 46.1 kg
[~2023-01-22 17:01] MED LIST changes: +HEPA500023 SQ; +HYDR20VI2 IV; +LEXA1TAB PO; +MYCO1TAB PO; +ONDA4INJ4 IV; +PANT40IN4 IV; +POTA-136 PO; +PRED5TA PO; +TACR1CAP3 PO; +THERTAB21 PO; +[UNRECOGNIZED DRUG - CODE] IV
[2023-01-22] MEDS ORDERED: NS 1,000 ML IV ONE (18:35)
[2023-01-22] MEDS ORDERED: METOCLOPRAMIDE INJ 10MG/2ML VIAL IV ONE (18:35)
[2023-01-22 19:07] LABS: BASO # 0.1 10^3/uL (0.0-0.2); BASO % 0.9 % (0.0-1.0); EOS # 0.1 10^3/uL (0.0-0.5); EOS % 1.1 % (0.0-3.0); HEMATOCRIT 27.4 % (36.0-47.0); HEMOGLOBIN 9.7 g/dl (12.0-15.5); LYMPH # 1.9 10^3/uL (1.5-5.0); LYMPH % 22.9 % (24.0-44.0); MEAN CORPUSCULAR HEMOGLOBIN 32.8 pg (27.0-33.0); MEAN CORPUSCULAR HGB CONC 35.4 g/dl (32.0-36.5); MEAN CORPUSCULAR VOLUME 92.6 fl (80.0-96.0); MONO # 0.8 10^3/uL (0.0-0.8); NEUTROPHILS # 5.3 10^3/uL (1.5-8.5); NEUTROPHILS % 64.7 % (36.0-66.0); PLATELET COUNT, AUTOMATED 395 10^3/uL (150-450); RED BLOOD COUNT 2.96 10^6/uL (4.00-5.40); WHITE BLOOD COUNT 8.1 10^3/uL (4.0-10.0)
[2023-01-22 19:24] LABS: ALBUMIN 3.5 G/DL (3.2-5.2); ALKALINE PHOSPHATASE 88 U/L (46-116); ALT/SGPT 23 U/L (7.0-40); AST/SGOT 37 U/L (<34); BILIRUBIN,DIRECT < 0.1 MG/DL (<0.4); BILIRUBIN,TOTAL 0.5 MG/DL (0.3-1.2); BLOOD UREA NITROGEN 45 MG/DL (9-23); CALCIUM LEVEL 12.6 MG/DL (8.5-10.1); CARBON DIOXIDE LEVEL > 40.0 MMOL/L (20-31); CHLORIDE LEVEL 80 MMOL/L (98-107); CREATININE FOR GFR 2.51 MG/DL (0.55-1.30); GLOMERULAR FILTRATION RATE 23.7 (>60); GLUCOSE, FASTING 364 MG/DL (60-100); LIPASE 37 U/L (12-53); POTASSIUM SERUM 4.1 MMOL/L (3.5-5.1); SODIUM LEVEL 128 MMOL/L (136-145); TOTAL PROTEIN 6.7 G/DL (5.7-8.2)
[2023-01-22 19:43] LABS: RSV AMPLIFICATION NEGATIVE (NEGATIVE)
[2023-01-22] MEDS ORDERED: NS 1,000 ML IV SCH (20:15)
[2023-01-22 21:15] VITALS: BP 113/76; O2SAT 96
[2023-01-22 21:16] VITALS: TEMP 98.7
== END 2023-01-22 21:23 | disposition short-term general hospital (02) ==
LOC: M ED 17:01
DX: E10.9 Type 1 diabetes mellitus without complications (principal); F12.10 Cannabis abuse, uncomplicated; Z88.6 Allergy status to analgesic agent; Z79.810 Long term (current) use of selective estrogen receptor modulators (SERMs); Z79.52 Long term (current) use of systemic steroids; Z79.899 Other long term (current) drug therapy; Z94.0 Kidney transplant status
CPT/HCPCS: 80048; 80076; 83690; 85025; 87631; 93005; 93041; 96361; 96374; 99285; J2765

== ENCOUNTER → 2023-04-19 | Outpatient (CLI) | payer MEDICARE, MEDICAID ==
[2023-04-19 09:08] LABS: BASO # 0.1 10^3/uL (0.0-0.2); BASO % 1.1 % (0.0-1.0); EOS # 0.4 10^3/uL (0.0-0.5); HEMATOCRIT 31.1 % (36.0-47.0); HEMOGLOBIN 10.4 g/dl (12.0-15.5); LYMPH # 1.9 10^3/uL (1.5-5.0); MEAN CORPUSCULAR HEMOGLOBIN 31.9 pg (27.0-33.0); MEAN CORPUSCULAR HGB CONC 33.4 g/dl (32.0-36.5); MEAN CORPUSCULAR VOLUME 95.4 fl (80.0-96.0); MONO # 0.5 10^3/uL (0.0-0.8); MONO % 9.6 % (2.0-8.0); NEUTROPHILS # 2.5 10^3/uL (1.5-8.5); NEUTROPHILS % 47.3 % (36.0-66.0); PLATELET COUNT, AUTOMATED 355 10^3/uL (150-450); RED BLOOD COUNT 3.26 10^6/uL (4.00-5.40); WHITE BLOOD COUNT 5.3 10^3/uL (4.0-10.0)
[2023-04-19 09:14] LABS: AMORPHOUS SEDIMENT SMALL (NEGATIVE); APPEARANCE, URINE HAZY (CLEAR); BACTERIA, URINE AUTO NEGATIVE (NEGATIVE); BILIRUBIN, URINE AUTO NEGATIVE (NEGATIVE); BLOOD, URINE BLOOD NEGATIVE (NEGATIVE); COLOR, URINE YELLOW (YELLOW); GLUCOSE, URINE (UA) AUTO 2+ mg/dL (NEGATIVE); KETONE, URINE AUTO NEGATIVE (NEGATIVE); LEUKOCYTE ESTERASE, URINE AUTO 2+ (NEGATIVE); NITRITE, URINE AUTO NEGATIVE (NEGATIVE); PROTEIN, URINE AUTO 1+ mg/dL (NEGATIVE); RBC, URINE AUTO 0 /HPF (0-3); SQUAMOUS EPITHELIAL CELL UR AU 4 /HPF (0-6); TRANSITIONAL EPITHELIAL AUTO 1 /HPF; UROBILINOGEN, URINE AUTO 0.2 mg/dL (0.0-2.0); WBC, URINE AUTO 3 /HPF (0-3)
[2023-04-19 09:37] LABS: ALBUMIN 3.3 G/DL (3.2-5.2); ALKALINE PHOSPHATASE 78 U/L (46-116); ALT/SGPT 33 U/L (7.0-40); AST/SGOT 28 U/L (<34); BILIRUBIN,DIRECT < 0.1 MG/DL (<0.4); BILIRUBIN,TOTAL 0.3 MG/DL (0.3-1.2); BLOOD UREA NITROGEN 34 MG/DL (9-23); CALCIUM LEVEL 10.1 MG/DL (8.5-10.1); CARBON DIOXIDE LEVEL 33 MMOL/L (20-31); CHLORIDE LEVEL 98 MMOL/L (98-107); CREATININE FOR GFR 1.87 MG/DL (0.55-1.30); GLOMERULAR FILTRATION RATE 33.2 (>60); GLUCOSE, FASTING 256 MG/DL (60-100); MAGNESIUM LEVEL 1.9 MG/DL (1.8-2.4); PHOSPHORUS LEVEL 3.1 MG/DL (2.5-4.9); POTASSIUM SERUM 4.1 MMOL/L (3.5-5.1); SODIUM LEVEL 138 MMOL/L (136-145); TOTAL PROTEIN 6.1 G/DL (5.7-8.2)
[2023-04-19 09:44] LABS: TOTAL PROTEIN,RANDOM URINE 26.2 MG/DL (0.0-14.0)
[2023-04-19 09:49] LABS: CREATININE,RANDOM URINE 60.3 MG/DL
== END ==
LOC: M LAB 08:28
PROVIDERS: ATTEND Nurse Practitioner Family
DX: Z94.0 Kidney transplant status (principal); N18.5 Chronic kidney disease, stage 5; D84.9 Immunodeficiency, unspecified; Z79.899 Other long term (current) drug therapy

== ENCOUNTER → 2023-04-19 | Outpatient (CLI) | payer MEDICARE, MEDICAID ==
[2023-04-19 09:16] LABS: BASO # 0.1 10^3/uL (0.0-0.2); BASO % 1.2 % (0.0-1.0); EOS # 0.4 10^3/uL (0.0-0.5); EOS % 7.4 % (0.0-3.0); HEMATOCRIT 31.4 % (36.0-47.0); HEMOGLOBIN 10.5 g/dl (12.0-15.5); LYMPH # 1.8 10^3/uL (1.5-5.0); LYMPH % 34.4 % (24.0-44.0); MEAN CORPUSCULAR HEMOGLOBIN 31.9 pg (27.0-33.0); MEAN CORPUSCULAR HGB CONC 33.4 g/dl (32.0-36.5); MEAN CORPUSCULAR VOLUME 95.4 fl (80.0-96.0); MONO # 0.5 10^3/uL (0.0-0.8); MONO % 8.8 % (2.0-8.0); NEUTROPHILS # 2.5 10^3/uL (1.5-8.5); PLATELET COUNT, AUTOMATED 372 10^3/uL (150-450); RED BLOOD COUNT 3.29 10^6/uL (4.00-5.40); WHITE BLOOD COUNT 5.1 10^3/uL (4.0-10.0)
[2023-04-19 09:26] LABS: ERYTHROCYTE SEDIMENTATION RATE 32 mm/hr (0-20)
[2023-04-19 09:47] LABS: URIC ACID 5.5 MG/DL (3.1-7.8)
[2023-04-19 09:48] LABS: C REACTIVE PROTEIN QUANTITATIV < 0.40 MG/DL (<1.0)
[2023-04-19 09:50] LABS: ALBUMIN 3.4 G/DL (3.2-5.2); ALKALINE PHOSPHATASE 79 U/L (46-116); ALT/SGPT 33 U/L (7.0-40); AST/SGOT 28 U/L (<34); BILIRUBIN,TOTAL 0.3 MG/DL (0.3-1.2); BLOOD UREA NITROGEN 34 MG/DL (9-23); CARBON DIOXIDE LEVEL 32 MMOL/L (20-31); CHLORIDE LEVEL 96 MMOL/L (98-107); CREATININE FOR GFR 1.84 MG/DL (0.55-1.30); GLOMERULAR FILTRATION RATE 33.8 (>60); GLUCOSE, FASTING 252 MG/DL (60-100); PHOSPHORUS LEVEL 3.1 MG/DL (2.5-4.9); POTASSIUM SERUM 4.1 MMOL/L (3.5-5.1); SODIUM LEVEL 136 MMOL/L (136-145); TOTAL PROTEIN 6.1 G/DL (5.7-8.2)
[2023-04-19 09:52] LABS: FERRITIN 5.9 NG/ML (7.3-270.7)
[2023-04-19 10:01] LABS: RHEUMATOID FACTOR QUANT 8.8 IU/ML (<14)
[2023-04-20 23:09] LABS: ANA (HEP2) Positive (.); CYCLIC CITRULLINATED PEPTIDE 16 units (0-19)
== END ==
LOC: M LAB 08:26
PROVIDERS: ATTEND Family Medicine
DX: M06.9 Rheumatoid arthritis, unspecified (principal); F50.2 Bulimia nervosa; D64.9 Anemia, unspecified; Z94.0 Kidney transplant status; N18.5 Chronic kidney disease, stage 5; D84.9 Immunodeficiency, unspecified; Z79.899 Other long term (current) drug therapy

== ENCOUNTER → 2023-05-10 | Outpatient (CLI) | payer MEDICARE, MEDICAID ==
[2023-05-10 12:24] LABS: CREATININE, URINE 57.5 MG/DL; MAU/CREAT RATIO 69.5 MCG/MG (0.0-30.0)
[2023-05-10 12:25] LABS: ALBUMIN 3.3 G/DL (3.2-5.2); BILIRUBIN,TOTAL 0.3 MG/DL (0.3-1.2); CALCIUM LEVEL 10.7 MG/DL (8.5-10.1); CREATININE FOR GFR 1.95 MG/DL (0.55-1.30); GLOMERULAR FILTRATION RATE 31.6 (>60); POTASSIUM SERUM 4.2 MMOL/L (3.5-5.1)
[2023-05-10 12:27] LABS: THYROID STIMULATING HORMONE 0.896 uIU/ML (0.55-4.78)
[2023-05-10 13:11] LABS: HEMOGLOBIN A1c > 14.0 % (4.0-6.0)
== END ==
LOC: M LAB 10:33
PROVIDERS: ATTEND Physician Assistant
DX: N18.5 Chronic kidney disease, stage 5 (principal); E10.65 Type 1 diabetes mellitus with hyperglycemia; E55.9 Vitamin D deficiency, unspecified; D84.9 Immunodeficiency, unspecified; Z79.899 Other long term (current) drug therapy; Z94.0 Kidney transplant status

== ENCOUNTER → 2023-05-10 | Outpatient (CLI) | payer MEDICARE, MEDICAID ==
[2023-05-10 11:50] LABS: AMORPHOUS SEDIMENT MODERATE (NEGATIVE); APPEARANCE, URINE CLOUDY (CLEAR); BACTERIA, URINE AUTO 1+ (NEGATIVE); BILIRUBIN, URINE AUTO NEGATIVE (NEGATIVE); BLOOD, URINE BLOOD NEGATIVE (NEGATIVE); COLOR, URINE YELLOW (YELLOW); GLUCOSE, URINE (UA) AUTO 3+ mg/dL (NEGATIVE); KETONE, URINE AUTO NEGATIVE (NEGATIVE); LEUKOCYTE ESTERASE, URINE AUTO 1+ (NEGATIVE); NITRITE, URINE AUTO NEGATIVE (NEGATIVE); PROTEIN, URINE AUTO 1+ mg/dL (NEGATIVE); RBC, URINE AUTO 1 /HPF (0-3); SPECIFIC GRAVITY URINE AUTO 1.011 (1.002-1.035); SQUAMOUS EPITHELIAL CELL UR AU 7 /HPF (0-6); UROBILINOGEN, URINE AUTO 0.2 mg/dL (0.0-2.0); WBC, URINE AUTO 3 /HPF (0-3)
[2023-05-10 11:53] LABS: BASO # 0.1 10^3/uL (0.0-0.2); BASO % 0.8 % (0.0-1.0); EOS # 0.7 10^3/uL (0.0-0.5); HEMATOCRIT 30.3 % (36.0-47.0); HEMOGLOBIN 9.9 g/dl (12.0-15.5); LYMPH # 1.6 10^3/uL (1.5-5.0); LYMPH % 21.8 % (24.0-44.0); MEAN CORPUSCULAR HEMOGLOBIN 31.5 pg (27.0-33.0); MEAN CORPUSCULAR HGB CONC 32.7 g/dl (32.0-36.5); MEAN CORPUSCULAR VOLUME 96.5 fl (80.0-96.0); MONO # 0.5 10^3/uL (0.0-0.8); MONO % 7.1 % (2.0-8.0); NEUTROPHILS # 4.5 10^3/uL (1.5-8.5); PLATELET COUNT, AUTOMATED 422 10^3/uL (150-450); RED BLOOD COUNT 3.14 10^6/uL (4.00-5.40); WHITE BLOOD COUNT 7.4 10^3/uL (4.0-10.0)
[2023-05-10 12:24] LABS: ALBUMIN 3.3 G/DL (3.2-5.2); ALKALINE PHOSPHATASE 84 U/L (46-116); ALT/SGPT 22 U/L (7.0-40); AST/SGOT 17 U/L (<34); BILIRUBIN,DIRECT < 0.1 MG/DL (<0.4); BILIRUBIN,TOTAL 0.2 MG/DL (0.3-1.2); BLOOD UREA NITROGEN 24 MG/DL (9-23); CARBON DIOXIDE LEVEL 38 MMOL/L (20-31); CHLORIDE LEVEL 92 MMOL/L (98-107); CREATININE FOR GFR 1.92 MG/DL (0.55-1.30); GLOMERULAR FILTRATION RATE 32.2 (>60); GLUCOSE, FASTING 283 MG/DL (60-100); MAGNESIUM LEVEL 2.1 MG/DL (1.8-2.4); PHOSPHORUS LEVEL 4.1 MG/DL (2.5-4.9); POTASSIUM SERUM 4.1 MMOL/L (3.5-5.1); SODIUM LEVEL 133 MMOL/L (136-145)
[2023-05-11 15:30] LABS: CMV QUANT DNA PCR (PLASMA) Negative (Negative)
== END ==
LOC: M LAB 10:51
PROVIDERS: ATTEND Nurse Practitioner Family
DX: N18.5 Chronic kidney disease, stage 5 (principal); D84.9 Immunodeficiency, unspecified; Z94.0 Kidney transplant status; Z79.899 Other long term (current) drug therapy; E10.65 Type 1 diabetes mellitus with hyperglycemia; E55.9 Vitamin D deficiency, unspecified

== ENCOUNTER 2023-09-16 18:44 | Inpatient (IN) | payer MEDICARE, MEDICAID ==
[~2023-09-16] VITALS: Ht 152.4 cm; Wt 45.6 kg
[~2023-09-16 18:44] MED LIST changes: -ADME100I2 SUBQ
[2023-09-16 19:28] LABS: VENOUS BASE EXCESS -22.3 (-2.0-2.0); VENOUS HCO3 6.5 MMOL/L (23.0-27.0); VENOUS O2 SATURATION 91.2 % (60.0-80.0); VENOUS PH 7.052 UNITS (7.330-7.430); VENOUS STANDARD HCO3 8.1 MMOL/L; VENOUS TOTAL CO2 7.3 MMOL/L (24.0-28.0)
[2023-09-16 19:32] LABS: BASO # 0.1 10^3/uL (0.0-0.2); BASO % 0.8 % (0.0-1.0); EOS # 0.1 10^3/uL (0.0-0.5); EOS % 0.6 % (0.0-3.0); HEMATOCRIT 28.5 % (36.0-47.0); HEMOGLOBIN 9.3 g/dl (12.0-15.5); LYMPH # 1.7 10^3/uL (1.5-5.0); LYMPH % 11.7 % (24.0-44.0); MEAN CORPUSCULAR HEMOGLOBIN 30.9 pg (27.0-33.0); MEAN CORPUSCULAR HGB CONC 32.6 g/dl (32.0-36.5); MEAN CORPUSCULAR VOLUME 94.7 fl (80.0-96.0); MONO # 0.8 10^3/uL (0.0-0.8); MONO % 5.8 % (2.0-8.0); NEUTROPHILS # 11.5 10^3/uL (1.5-8.5); NEUTROPHILS % 80.3 % (36.0-66.0); PLATELET COUNT, AUTOMATED 557 10^3/uL (150-450); RED BLOOD COUNT 3.01 10^6/uL (4.00-5.40); WHITE BLOOD COUNT 14.3 10^3/uL (4.0-10.0)
[2023-09-16] MEDS: NS 1,000 ML IV ONE ×2 (19:42→23:45)
[2023-09-16 20:01] LABS: HCG, SERUM QUALITATIVE NEGATIVE (NEGATIVE)
[2023-09-16 20:02] LABS: LIPASE 43 U/L (12-53)
[2023-09-16 20:04] LABS: ACETONE/KETONE > 4.50 MMOL/L (0.02-0.27); ALKALINE PHOSPHATASE 148 U/L (46-116); ALT/SGPT 16 U/L (7.0-40); AST/SGOT 16 U/L (<34); BILIRUBIN,DIRECT < 0.1 MG/DL (<0.4); BILIRUBIN,TOTAL 0.2 MG/DL (0.3-1.2); BLOOD UREA NITROGEN 31 MG/DL (9-23); CALCIUM LEVEL 9.2 MG/DL (8.5-10.1); CARBON DIOXIDE LEVEL < 10.0 MMOL/L (20-31); CHLORIDE LEVEL 90 MMOL/L (98-107); CREATININE FOR GFR 1.72 MG/DL (0.55-1.30); GLOMERULAR FILTRATION RATE 36.4 (>60); GLUCOSE, FASTING 580 MG/DL (60-100); MAGNESIUM LEVEL 2.1 MG/DL (1.8-2.4); PHOSPHORUS LEVEL 6.7 MG/DL (2.5-4.9); POTASSIUM SERUM 4.6 MMOL/L (3.5-5.1); SODIUM LEVEL 128 MMOL/L (136-145); TOTAL PROTEIN 6.6 G/DL (5.7-8.2)
[2023-09-16 20:11] LABS: OSMOLALITY SERUM 332 MOSM/KG (275-295)
[2023-09-16] MEDS: HumuLIN R (REGULAR) INSULIN (NovoLIN R) **100U/ML** PER UNIT IV ONE (20:25)
[2023-09-16] MEDS ORDERED: INSULIN IV RATE CHANGE DOCUMENTATION ML/HR XX SCH (20:25)
[2023-09-16] MEDS: INSULIN REGULAR IN 0.9 % NACL 100 UNIT in IV 1 EA IV SCH (20:53)
[2023-09-16] MEDS ORDERED: SIRO1TAB3 PO (21:44)
[2023-09-16] MEDS ORDERED: BASA100I SC (21:44)
[2023-09-16] MEDS ORDERED: HYDR-643 PO (21:44)
[2023-09-16] MEDS ORDERED: DULO60CA35 PO (21:44)
[2023-09-16] MEDS ORDERED: FERR1TAB8 PO (21:44)
[2023-09-16] MEDS ORDERED: MULT-40 PO (21:44)
[2023-09-16] MEDS ORDERED: OMEP-173 PO (21:44)
[2023-09-16] MEDS ORDERED: HOME MED LIST COMPLETE! XX SCH (21:50)
[2023-09-16] MEDS: NS 1,000 ML IV SCH (23:41)
[2023-09-16] MEDS ORDERED: NS 1,000 ML IV SCH (23:55)
[2023-09-17] VITALS (10 sets, daily range): BP systolic 93–123; BP diastolic 65–86; TEMP 97–99.2; O2SAT 94–100
[2023-09-17] MEDS: ONDANSETRON 4MG 2ML VIAL IV PRN (00:36)
[2023-09-17] MEDS: DULoxetine 30MG CAPSULE (CYMBALTA) PO SCH (01:24)
[2023-09-17] MEDS: TACROLIMUS 1MG CAP PO SCH (01:24)
[2023-09-17] MEDS: SIROLIMUS 1 MG TAB (RAPAMUNE) PO SCH (01:25)
[2023-09-17] MEDS: PANTOPRAZOLE 40MG VIAL IV SCH (01:42)
[2023-09-17] MEDS: INSULIN IV RATE CHANGE DOCUMENTATION ML/HR XX SCH (01:44)
[2023-09-17] MEDS: D5W/0.45% SODIUM CHLORIDE 1,000 ML IV SCH (01:47)
[2023-09-17 02:45] LABS: CALCIUM LEVEL 9.1 MG/DL (8.5-10.1); CREATININE FOR GFR 1.69 MG/DL (0.55-1.30); GLOMERULAR FILTRATION RATE 37.1 (>60); POTASSIUM SERUM 3.4 MMOL/L (3.5-5.1)
[2023-09-17] MEDS: KCL 10MEQ/100ML SWI (KRUN) 10 MEQ in IV 1 EA IV SCH ×2 (03:18→13:28)
[2023-09-17 04:49] LABS: CALCIUM LEVEL 8.5 MG/DL (8.5-10.1); CREATININE FOR GFR 1.58 MG/DL (0.55-1.30); GLOMERULAR FILTRATION RATE 40.1 (>60); PHOSPHORUS LEVEL 2.6 MG/DL (2.5-4.9); POTASSIUM SERUM 3.8 MMOL/L (3.5-5.1)
[2023-09-17] MEDS: HEPARIN SOD (PORCINE) 5000UNITS/ML 1ML VIAL/SYRINGE SC SCH (05:47)
[2023-09-17] MEDS: INSULIN REGULAR IN 0.9 % NACL 100 UNIT in IV 1 EA IV SCH (06:04)
[2023-09-17 06:52] LABS: CALCIUM LEVEL 8.8 MG/DL (8.5-10.1); CREATININE FOR GFR 1.56 MG/DL (0.55-1.30); GLOMERULAR FILTRATION RATE 40.7 (>60); PHOSPHORUS LEVEL 2.6 MG/DL (2.5-4.9); POTASSIUM SERUM 4.3 MMOL/L (3.5-5.1)
[2023-09-17 07:03] LABS: AMPHETAMINES LEVEL URINE NEGATIVE (NEGATIVE); BARBITURATES URINE NEGATIVE (NEGATIVE); BENZODIAZEPINES URINE NEGATIVE (NEGATIVE); COCAINE METABOLITE URINE NEGATIVE (NEGATIVE); METHADONE URINE NEGATIVE (NEGATIVE); OPIATES URINE NEGATIVE (NEGATIVE); PHENCYCLIDINE URINE NEGATIVE (NEGATIVE)
[2023-09-17 07:05] LABS: CANNABINOIDS URINE POSITIVE (NEGATIVE)
[2023-09-17 08:54] LABS: CALCIUM LEVEL 8.2 MG/DL (8.5-10.1); CREATININE FOR GFR 1.48 MG/DL (0.55-1.30); GLOMERULAR FILTRATION RATE 43.2 (>60); PHOSPHORUS LEVEL 2.6 MG/DL (2.5-4.9); POTASSIUM SERUM 3.9 MMOL/L (3.5-5.1)
[2023-09-17] MEDS ORDERED: PANTOPRAZOLE 40MG VIAL IV SCH (09:00)
[2023-09-17] MEDS: predniSONE 5 MG TAB PO SCH (10:02)
[2023-09-17] MEDS: CALCIUM CARBONATE 500 MG CHEW U/D PO PRN (12:23)
[2023-09-17 12:52] LABS: CALCIUM LEVEL 8.6 MG/DL (8.5-10.1); CREATININE FOR GFR 1.38 MG/DL (0.55-1.30); GLOMERULAR FILTRATION RATE 46.9 (>60); PHOSPHORUS LEVEL 1.8 MG/DL (2.5-4.9); POTASSIUM SERUM 3.3 MMOL/L (3.5-5.1)
[2023-09-17] MEDS ORDERED: DEXTROSE 50% 50ML SYRINGE IV PRN (13:00)
[2023-09-17] MEDS ORDERED: GLUCAGON INJ 1MG VIAL SC PRN (13:00)
[2023-09-17] MEDS ORDERED: GLUCOSE 4 GM CHEW PO PRN (13:00)
[2023-09-17] MEDS: LEVEMIR (INSULIN DETEMIR) 1 UNITS/0.01ML SC SCH (13:29)
[2023-09-17] MEDS: POTASSIUM CHLORIDE 10MEQ SR TABLET PO ONE ×2 (13:29→17:45)
[2023-09-17] MEDS: SODIUM PHOSPHATE INJ 30 MMOL in D5W 500 ML IV ONE ×2 (15:27→21:01)
[2023-09-17 17:02] LABS: CALCIUM LEVEL 8.9 MG/DL (8.5-10.1); CREATININE FOR GFR 1.24 MG/DL (0.55-1.30); PHOSPHORUS LEVEL 2.3 MG/DL (2.5-4.9); POTASSIUM SERUM 3.8 MMOL/L (3.5-5.1)
[2023-09-17] MEDS: INSULIN LISPRO (NovoLOG) PER UNIT SC SCH ×2 (17:44→19:52)
[2023-09-17] MEDS: OMEPRAZOLE 20MG CAP PO SCH (20:06)
[2023-09-17] MEDS: ACETAMINOPHEN TAB 650MG DOSE (2X325MG) PO PRN (22:00)
[2023-09-18] VITALS (7 sets, daily range): BP systolic 129–155; BP diastolic 93–114; TEMP 97.6–98.9; O2SAT 98–100
[2023-09-18 04:58] LABS: BASO % 0.3 % (0.0-1.0); EOS # 0.2 10^3/uL (0.0-0.5); EOS % 2.4 % (0.0-3.0); HEMATOCRIT 26.4 % (36.0-47.0); HEMOGLOBIN 8.8 g/dl (12.0-15.5); LYMPH # 1.7 10^3/uL (1.5-5.0); LYMPH % 18.8 % (24.0-44.0); MEAN CORPUSCULAR HEMOGLOBIN 30.6 pg (27.0-33.0); MEAN CORPUSCULAR HGB CONC 33.3 g/dl (32.0-36.5); MEAN CORPUSCULAR VOLUME 91.7 fl (80.0-96.0); MONO # 0.8 10^3/uL (0.0-0.8); MONO % 8.7 % (2.0-8.0); NEUTROPHILS # 6.4 10^3/uL (1.5-8.5); NEUTROPHILS % 69.6 % (36.0-66.0); PLATELET COUNT, AUTOMATED 440 10^3/uL (150-450); RED BLOOD COUNT 2.88 10^6/uL (4.00-5.40); WHITE BLOOD COUNT 9.3 10^3/uL (4.0-10.0)
[2023-09-18 05:34] LABS: ALBUMIN 2.6 G/DL (3.2-5.2); ALKALINE PHOSPHATASE 119 U/L (46-116); ALT/SGPT 13 U/L (7.0-40); AST/SGOT 16 U/L (<34); BILIRUBIN,TOTAL 0.2 MG/DL (0.3-1.2); BLOOD UREA NITROGEN 15 MG/DL (9-23); CALCIUM LEVEL 8.8 MG/DL (8.5-10.1); CARBON DIOXIDE LEVEL 23 MMOL/L (20-31); CHLORIDE LEVEL 103 MMOL/L (98-107); CREATININE FOR GFR 1.07 MG/DL (0.55-1.30); GLOMERULAR FILTRATION RATE > 60.0 (>60); GLUCOSE, FASTING 125 MG/DL (60-100); MAGNESIUM LEVEL 1.7 MG/DL (1.8-2.4); PHOSPHORUS LEVEL 5.2 MG/DL (2.5-4.9); POTASSIUM SERUM 4.3 MMOL/L (3.5-5.1); SODIUM LEVEL 134 MMOL/L (136-145); TOTAL PROTEIN 5.8 G/DL (5.7-8.2)
[2023-09-18] MEDS: MAG SULF 1GM/100ML (MAG RUN) 1 GM in IV 1 EA IV ONE (08:18)
[2023-09-18 08:36] LABS: HEMOGLOBIN A1c > 14.0 % (4.0-6.0)
[2023-09-18] MEDS ORDERED: MAGN200T10 PO (14:51)
== END 2023-09-18 16:27 | disposition home or self-care (01) | DRG 638 ==
LOC: M ED 18:44 → M ED INP 23:47 → M ICU 09-17 00:58
PROVIDERS: ADMIT Internal Medicine; ATTEND Student in an Organized Health Care Education/Training Program
DX: E10.10 Type 1 diabetes mellitus with ketoacidosis without coma (principal); Z94.0 Kidney transplant status; D84.9 Immunodeficiency, unspecified; E10.65 Type 1 diabetes mellitus with hyperglycemia; E10.22 Type 1 diabetes mellitus with diabetic chronic kidney disease; I12.9 Hypertensive chronic kidney disease with stage 1 through stage 4 chronic kidney disease, or unspecified chronic kidney disease; M06.9 Rheumatoid arthritis, unspecified; E03.9 Hypothyroidism, unspecified; D50.9 Iron deficiency anemia, unspecified; N18.9 Chronic kidney disease, unspecified; F12.188 Cannabis abuse with other cannabis-induced disorder; R11.2 Nausea with vomiting, unspecified; E83.42 Hypomagnesemia; Z88.6 Allergy status to analgesic agent; Z79.899 Other long term (current) drug therapy; Z91.148 Patient's other noncompliance with medication regimen for other reason; F41.9 Anxiety disorder, unspecified; F32.A Depression, unspecified; Z79.4 Long term (current) use of insulin

== ENCOUNTER → 2023-09-19 | Outpatient (REF) | payer MEDICARE, MEDICAID ==
[~2023-09-19] MED LIST changes: +DULO60CA35 PO; +FERR1TAB8 PO; +HYDR-643 PO; +MAGN200T10 PO; +MULT-40 PO; +OMEP-173 PO; +SIRO1TAB3 PO
== END ==
LOC: M PLALAB 12:51
PROVIDERS: ATTEND Physician Assistant
DX: E10.65 Type 1 diabetes mellitus with hyperglycemia (principal)

== ENCOUNTER → 2023-09-19 | Outpatient (CLI) | payer MEDICARE, MEDICAID ==
[2023-09-19 14:26] LABS: HEMATOCRIT 25.7 % (36.0-47.0); HEMOGLOBIN 8.6 g/dl (12.0-15.5); MEAN CORPUSCULAR HEMOGLOBIN 30.8 pg (27.0-33.0); MEAN CORPUSCULAR HGB CONC 33.5 g/dl (32.0-36.5); MEAN CORPUSCULAR VOLUME 92.1 fl (80.0-96.0); PLATELET COUNT, AUTOMATED 463 10^3/uL (150-450); RED BLOOD COUNT 2.79 10^6/uL (4.00-5.40); WHITE BLOOD COUNT 6.6 10^3/uL (4.0-10.0)
[2023-09-19 14:32] LABS: PERCENT SATURATION 8.8 % (13.2-45.0)
[2023-09-19 14:34] LABS: FERRITIN 13.7 NG/ML (7.3-270.7)
== END ==
LOC: M PLALAB 10:20
PROVIDERS: ATTEND Family Medicine
DX: D64.9 Anemia, unspecified (principal)

== ENCOUNTER → 2023-09-20 | Outpatient (REF) | payer MEDICARE, MEDICAID | LOC: M SFHCRHEU 10:18 | PROVIDERS: ATTEND Internal Medicine | DX: Z79.52 Long term (current) use of systemic steroids (principal); R76.8 Other specified abnormal immunological findings in serum; Z11.59 Encounter for screening for other viral diseases; M05.79 Rheumatoid arthritis with rheumatoid factor of multiple sites without organ or systems involvement ==

== ENCOUNTER → 2023-11-18 | Outpatient (CLI) | payer MEDICARE, MEDICAID ==
[2023-11-18 11:36] LABS: BASO # 0.1 10^3/uL (0.0-0.2); BASO % 1.1 % (0.0-1.0); EOS # 0.4 10^3/uL (0.0-0.5); EOS % 4.6 % (0.0-3.0); HEMATOCRIT 28.8 % (36.0-47.0); HEMOGLOBIN 9.2 g/dl (12.0-15.5); LYMPH # 2.5 10^3/uL (1.5-5.0); MEAN CORPUSCULAR HEMOGLOBIN 29.5 pg (27.0-33.0); MEAN CORPUSCULAR HGB CONC 31.9 g/dl (32.0-36.5); MEAN CORPUSCULAR VOLUME 92.3 fl (80.0-96.0); MONO # 0.6 10^3/uL (0.0-0.8); MONO % 7.6 % (2.0-8.0); NEUTROPHILS # 4.7 10^3/uL (1.5-8.5); NEUTROPHILS % 56.5 % (36.0-66.0); PLATELET COUNT, AUTOMATED 441 10^3/uL (150-450); RED BLOOD COUNT 3.12 10^6/uL (4.00-5.40); WHITE BLOOD COUNT 8.3 10^3/uL (4.0-10.0)
[2023-11-18 11:39] LABS: AMORPHOUS SEDIMENT SMALL (NEGATIVE); APPEARANCE, URINE HAZY (CLEAR); BACTERIA, URINE AUTO NEGATIVE (NEGATIVE); BILIRUBIN, URINE AUTO NEGATIVE (NEGATIVE); BLOOD, URINE BLOOD NEGATIVE (NEGATIVE); COLOR, URINE AMBER (YELLOW); GLUCOSE, URINE (UA) AUTO 3+ mg/dL (NEGATIVE); KETONE, URINE AUTO TRACE mg/dL (NEGATIVE); LEUKOCYTE ESTERASE, URINE AUTO TRACE (NEGATIVE); MUCUS, URINE SMALL (NEGATIVE); NITRITE, URINE AUTO NEGATIVE (NEGATIVE); PROTEIN, URINE AUTO 2+ mg/dL (NEGATIVE); RBC, URINE AUTO 2 /HPF (0-3); SPECIFIC GRAVITY URINE AUTO 1.013 (1.002-1.035); SQUAMOUS EPITHELIAL CELL UR AU 1 /HPF (0-6); UROBILINOGEN, URINE AUTO 0.2 mg/dL (0.0-2.0); WBC, URINE AUTO 14 /HPF (0-3)
[2023-11-18 11:59] LABS: TOTAL PROTEIN,RANDOM URINE 50.4 MG/DL (0.0-14.0)
[2023-11-18 12:04] LABS: CREATININE,RANDOM URINE 100.3 MG/DL
[2023-11-18 12:26] LABS: ALBUMIN 3.6 G/DL (3.2-5.2); BILIRUBIN,TOTAL 0.2 MG/DL (0.3-1.2); CALCIUM LEVEL 10.3 MG/DL (8.5-10.1); CHOLESTEROL RISK RATIO 3.94 (<5); CREATININE FOR GFR 2.75 MG/DL (0.55-1.30); GLOMERULAR FILTRATION RATE 21.2 (>60); HDL CHOLESTEROL 79.3 MG/DL (>40); LDL CHOLESTEROL 195.7 MG/DL (<100); MAGNESIUM LEVEL 2.6 MG/DL (1.8-2.4); NON-HDL-C 233.7 MG/DL; POTASSIUM SERUM 4.7 MMOL/L (3.5-5.1); TOTAL PROTEIN 6.8 G/DL (5.7-8.2)
== END ==
LOC: M LAB 10:13
PROVIDERS: ATTEND Nurse Practitioner Family
DX: Z94.0 Kidney transplant status (principal); D84.9 Immunodeficiency, unspecified; Z79.899 Other long term (current) drug therapy

== ENCOUNTER 2023-12-08 14:16 | Inpatient (IN) | payer MEDICARE, MEDICAID ==
[~2023-12-08] VITALS: Ht 157.5 cm; Wt 49.9 kg
[2023-12-08 14:56] LABS: BASO # 0.1 10^3/uL (0.0-0.2); BASO % 1.2 % (0.0-1.0); EOS # 0.8 10^3/uL (0.0-0.5); EOS % 8.2 % (0.0-3.0); HEMATOCRIT 30.4 % (36.0-47.0); HEMOGLOBIN 9.5 g/dl (12.0-15.5); LYMPH # 2.5 10^3/uL (1.5-5.0); LYMPH % 25.4 % (24.0-44.0); MEAN CORPUSCULAR HEMOGLOBIN 30.1 pg (27.0-33.0); MEAN CORPUSCULAR HGB CONC 31.3 g/dl (32.0-36.5); MEAN CORPUSCULAR VOLUME 96.2 fl (80.0-96.0); MONO # 0.9 10^3/uL (0.0-0.8); MONO % 9.3 % (2.0-8.0); NEUTROPHILS # 5.4 10^3/uL (1.5-8.5); NEUTROPHILS % 55.6 % (36.0-66.0); PLATELET COUNT, AUTOMATED 498 10^3/uL (150-450); RED BLOOD COUNT 3.16 10^6/uL (4.00-5.40); WHITE BLOOD COUNT 9.8 10^3/uL (4.0-10.0)
[2023-12-08 15:19] LABS: CK-MB VALUE MASS < 1.0 NG/ML (<3.6); ETHYL ALCOHOL (ETHANOL) < 0.003 % (0.000-0.010)
[2023-12-08 15:20] LABS: SALICYLATE LEVEL < 3.0 MG/DL (<30)
[2023-12-08 15:21] LABS: ALBUMIN 3.7 G/DL (3.2-5.2); ALKALINE PHOSPHATASE 88 U/L (46-116); ALT/SGPT 22 U/L (7.0-40); AST/SGOT 28 U/L (<34); BILIRUBIN,DIRECT < 0.1 MG/DL (<0.4); BILIRUBIN,TOTAL 0.2 MG/DL (0.3-1.2); BLOOD UREA NITROGEN 31 MG/DL (9-23); CALCIUM LEVEL 10.8 MG/DL (8.5-10.1); CARBON DIOXIDE LEVEL 29 MMOL/L (20-31); CHLORIDE LEVEL 103 MMOL/L (98-107); CREATININE FOR GFR 1.55 MG/DL (0.55-1.30); GLUCOSE, FASTING 287 MG/DL (60-100); POTASSIUM SERUM 3.9 MMOL/L (3.5-5.1); SODIUM LEVEL 142 MMOL/L (136-145); TOTAL PROTEIN 7.2 G/DL (5.7-8.2)
[2023-12-08 15:23] LABS: THYROID STIMULATING HORMONE 0.929 uIU/ML (0.55-4.78)
[2023-12-08 15:26] LABS: HCG, SERUM QUALITATIVE NEGATIVE (NEGATIVE)
[2023-12-08 15:28] LABS: CPK CREATINE PHOSPHOKINASE 77 U/L (34-145); MB/CK RELATIVE INDEX 1.29 (< OR =4)
[2023-12-08] MEDS: PIPERACILLIN/TAZOBACTAM SOD 4.5 GM in D5W MINI-BAG PLUS 50 ML IV ONE (15:51)
[2023-12-08] MEDS: NS IV ONE (16:00)
[2023-12-08 16:02] LABS: AMPHETAMINES LEVEL URINE NEGATIVE (NEGATIVE); BARBITURATES URINE NEGATIVE (NEGATIVE); BENZODIAZEPINES URINE NEGATIVE (NEGATIVE); COCAINE METABOLITE URINE NEGATIVE (NEGATIVE); METHADONE URINE NEGATIVE (NEGATIVE); OPIATES URINE NEGATIVE (NEGATIVE)
[2023-12-08 16:03] LABS: PHENCYCLIDINE URINE NEGATIVE (NEGATIVE)
[2023-12-08] MEDS: NS 1,000 ML IV ONE (16:08)
[2023-12-08 16:16] LABS: CANNABINOIDS URINE POSITIVE (NEGATIVE)
[2023-12-08 17:57] LABS: ABG BASE EXCESS 1.4 (-2.0-2.0); ABG HCO3 27.6 MMOL/L (22.0-26.0); ABG O2 SATURATION 94.8 % (95.0-99.0); ABG PARTIAL PRESSURE CO2 52.4 mmHg (35.0-45.0); ABG STANDARD HCO3 25.7 MMOL/L. (22.0-26.0); ABG TOTAL CO2 29.2 MMOL/L (22.0-29.0)
[2023-12-08] MEDS ORDERED: VANCOMYCIN 125MG CAPSULE PO SCH (18:00)
[2023-12-08] MEDS ORDERED: DEXTROSE 50% 50ML SYRINGE IV PRN (18:25)
[2023-12-08] MEDS ORDERED: GLUCAGON INJ 1MG VIAL SC PRN (18:25)
[2023-12-08] MEDS ORDERED: GLUCOSE 4 GM CHEW PO PRN (18:25)
[2023-12-08] MEDS ORDERED: MUPI2OI TOP (19:41)
[2023-12-08] MEDS ORDERED: ACET-897 PO (19:43)
[2023-12-08] MEDS ORDERED: HOME MED LIST COMPLETE! XX SCH (19:45)
[2023-12-08] MEDS: HYDROCORTISONE 100MG/2ML VIAL IV ONE (19:50)
[2023-12-08] MEDS: LR 1,000 ML IV SCH (19:50)
[2023-12-08] MEDS: INSULIN LISPRO (NovoLOG) PER UNIT SC SCH (19:52)
[2023-12-08 20:49] VITALS: BP 137/98; TEMP 97.5; O2SAT 97
[2023-12-08] MEDS: SIROLIMUS 1 MG TAB (RAPAMUNE) PO SCH (21:52)
[2023-12-08] MEDS: FIDAXOMICIN 200 MG TAB (DIFICID) PO SCH (21:52)
[2023-12-08] MEDS: LEVEMIR (INSULIN DETEMIR) 1 UNITS/0.01ML SC SCH (21:53)
[2023-12-08] MEDS: OMEPRAZOLE 20MG CAP PO SCH (21:53)
[2023-12-08] MEDS: TACROLIMUS 1MG CAP PO SCH (21:53)
[2023-12-08 22:00] VITALS: BP 124/79
[2023-12-08 23:00] VITALS: BP 169/117
[2023-12-08 23:10] LABS: BEDSIDE GLUCOSE CONFIRMATION 655 MG/DL (LESS THAN 200)
[2023-12-08] MEDS: INSULIN LISPRO (NovoLOG) PER UNIT SC STA (23:32)
[2023-12-08 23:37] LABS: BLOOD UREA NITROGEN 29 MG/DL (9-23); CALCIUM LEVEL 8.6 MG/DL (8.5-10.1); CARBON DIOXIDE LEVEL 26 MMOL/L (20-31); CHLORIDE LEVEL 101 MMOL/L (98-107); CREATININE FOR GFR 1.28 MG/DL (0.55-1.30); GLOMERULAR FILTRATION RATE 51.1 (>60); POTASSIUM SERUM 4.9 MMOL/L (3.5-5.1); SODIUM LEVEL 131 MMOL/L (136-145)
[2023-12-09] VITALS (11 sets, daily range): BP systolic 135–167; BP diastolic 90–116; TEMP 97.2–98.6; O2SAT 96–99
[2023-12-09] MEDS: LABETALOL 100MG/20ML VIAL IV ONE (00:26)
[2023-12-09 05:17] LABS: BASO % 0.5 % (0.0-1.0); EOS # 0.2 10^3/uL (0.0-0.5); EOS % 2.2 % (0.0-3.0); HEMATOCRIT 26.1 % (36.0-47.0); HEMOGLOBIN 8.3 g/dl (12.0-15.5); LYMPH # 1.6 10^3/uL (1.5-5.0); LYMPH % 18.9 % (24.0-44.0); MEAN CORPUSCULAR HGB CONC 31.8 g/dl (32.0-36.5); MEAN CORPUSCULAR VOLUME 94.2 fl (80.0-96.0); MONO # 0.8 10^3/uL (0.0-0.8); MONO % 9.6 % (2.0-8.0); NEUTROPHILS # 5.8 10^3/uL (1.5-8.5); NEUTROPHILS % 68.6 % (36.0-66.0); PLATELET COUNT, AUTOMATED 414 10^3/uL (150-450); RED BLOOD COUNT 2.77 10^6/uL (4.00-5.40); WHITE BLOOD COUNT 8.5 10^3/uL (4.0-10.0)
[2023-12-09] MEDS: HEPARIN SOD (PORCINE) 5000UNITS/ML 1ML VIAL/SYRINGE SC SCH (05:20)
[2023-12-09 05:55] LABS: ALBUMIN 2.9 G/DL (3.2-5.2); BILIRUBIN,TOTAL 0.2 MG/DL (0.3-1.2); CALCIUM LEVEL 9.9 MG/DL (8.5-10.1); CREATININE FOR GFR 1.18 MG/DL (0.55-1.30); GLOMERULAR FILTRATION RATE 56.2 (>60); MAGNESIUM LEVEL 2.1 MG/DL (1.8-2.4); PHOSPHORUS LEVEL 3.7 MG/DL (2.5-4.9); POTASSIUM SERUM 4.5 MMOL/L (3.5-5.1); TOTAL PROTEIN 5.8 G/DL (5.7-8.2)
[2023-12-09] MEDS: INSULIN LISPRO (NovoLOG) PER UNIT SC SCH (08:36)
[2023-12-09] MEDS: predniSONE 5 MG TAB PO SCH (08:42)
[2023-12-09] MEDS: DULoxetine 30MG CAPSULE (CYMBALTA) PO SCH (08:42)
== END 2023-12-09 16:57 | disposition home or self-care (01) | DRG 637 ==
LOC: M ED 14:16 → M ED INP 18:16 → M ICU 20:49
PROVIDERS: ADMIT Internal Medicine Pulmonary Disease; ATTEND Internal Medicine Pulmonary Disease
DX: E10.649 Type 1 diabetes mellitus with hypoglycemia without coma (principal); G93.41 Metabolic encephalopathy; Z94.0 Kidney transplant status; A04.72 Enterocolitis due to Clostridium difficile, not specified as recurrent; E27.40 Unspecified adrenocortical insufficiency; D84.9 Immunodeficiency, unspecified; N18.9 Chronic kidney disease, unspecified; E10.22 Type 1 diabetes mellitus with diabetic chronic kidney disease; F41.9 Anxiety disorder, unspecified; I12.9 Hypertensive chronic kidney disease with stage 1 through stage 4 chronic kidney disease, or unspecified chronic kidney disease; M06.9 Rheumatoid arthritis, unspecified; D50.9 Iron deficiency anemia, unspecified; F32.A Depression, unspecified; Z79.4 Long term (current) use of insulin; Z79.52 Long term (current) use of systemic steroids; Z79.899 Other long term (current) drug therapy; Z88.8 Allergy status to other drugs, medicaments and biological substances

== ENCOUNTER → 2024-02-27 | Outpatient (CLI) | payer MEDICARE, MEDICAID ==
[~2024-02-27] MED LIST changes: +ACET-897 PO; +MUPI2OI TOP; +SENN-187 PO; -SENN-83 PO
[2024-02-27 13:48] LABS: HEMATOCRIT 25.1 % (36.0-47.0); MEAN CORPUSCULAR HEMOGLOBIN 29.6 pg (27.0-33.0); MEAN CORPUSCULAR HGB CONC 31.9 g/dl (32.0-36.5); PLATELET COUNT, AUTOMATED 449 10^3/uL (150-450); WHITE BLOOD COUNT 7.1 10^3/uL (4.0-10.0)
[2024-02-27 14:19] LABS: ALBUMIN 3.2 G/DL (3.2-5.2); ALKALINE PHOSPHATASE 101 U/L (35-104); ALT/SGPT 35 U/L (7.0-40); AST/SGOT 18 U/L (<34); BILIRUBIN,TOTAL 0.3 MG/DL (0.3-1.2); BLOOD UREA NITROGEN 31 MG/DL (9-23); CALCIUM LEVEL 10.6 MG/DL (8.5-10.1); CARBON DIOXIDE LEVEL 36 MMOL/L (20-31); CHLORIDE LEVEL 97 MMOL/L (98-107); CREATININE FOR GFR 2.01 MG/DL (0.55-1.30); GLOMERULAR FILTRATION RATE 30.4 (>60); GLUCOSE, FASTING 214 MG/DL (60-100); MAGNESIUM LEVEL 2.4 MG/DL (1.8-2.4); PHOSPHORUS LEVEL 4.1 MG/DL (2.5-4.9); POTASSIUM SERUM 4.5 MMOL/L (3.5-5.1); SODIUM LEVEL 135 MMOL/L (136-145); TOTAL PROTEIN 6.5 G/DL (5.7-8.2)
[2024-02-27 18:50] LABS: HCG, SERUM QUALITATIVE NEGATIVE (NEGATIVE)
[2024-02-28 15:47] LABS: RUBEOLA IgG ANTIBODY < 13.50 AU/mL (>16.49)
[2024-03-02 14:41] LABS: QuantiFERON-TB Gold Plus NEGATIVE (NEGATIVE)
== END ==
LOC: M LAB 11:49 → M PLALAB 11:49
PROVIDERS: ATTEND Family Medicine
DX: E10.65 Type 1 diabetes mellitus with hyperglycemia (principal); F50.20 Bulimia nervosa, unspecified

== ENCOUNTER → 2024-03-19 | Outpatient (CLI) | payer MEDICARE, MEDICAID ==
[2024-03-19 14:38] LABS: HEMATOCRIT 26.9 % (36.0-47.0); HEMOGLOBIN 8.4 g/dl (12.0-15.5); MEAN CORPUSCULAR HEMOGLOBIN 29.3 pg (27.0-33.0); MEAN CORPUSCULAR HGB CONC 31.2 g/dl (32.0-36.5); MEAN CORPUSCULAR VOLUME 93.7 fl (80.0-96.0); PLATELET COUNT, AUTOMATED 603 10^3/uL (150-450); RED BLOOD COUNT 2.87 10^6/uL (4.00-5.40); WHITE BLOOD COUNT 7.5 10^3/uL (4.0-10.0)
[2024-03-19 14:50] LABS: HCG, SERUM QUALITATIVE NEGATIVE (NEGATIVE)
[2024-03-19 14:52] LABS: ALBUMIN 3.4 G/DL (3.2-5.2); ALKALINE PHOSPHATASE 121 U/L (35-104); ALT/SGPT 26 U/L (7.0-40); AST/SGOT 12 U/L (<34); BILIRUBIN,TOTAL 0.2 MG/DL (0.3-1.2); BLOOD UREA NITROGEN 23 MG/DL (9-23); CALCIUM LEVEL 10.6 MG/DL (8.5-10.1); CARBON DIOXIDE LEVEL 34 MMOL/L (20-31); CHLORIDE LEVEL 94 MMOL/L (98-107); CREATININE FOR GFR 1.56 MG/DL (0.55-1.30); GLOMERULAR FILTRATION RATE 40.7 (>60); GLUCOSE, FASTING 377 MG/DL (60-100); MAGNESIUM LEVEL 2.2 MG/DL (1.8-2.4); PHOSPHORUS LEVEL 3.9 MG/DL (2.5-4.9); POTASSIUM SERUM 4.7 MMOL/L (3.5-5.1); SODIUM LEVEL 135 MMOL/L (136-145); TOTAL PROTEIN 6.8 G/DL (5.7-8.2)
== END ==
LOC: M PLALAB 09:29
PROVIDERS: ATTEND Family Medicine
DX: E10.65 Type 1 diabetes mellitus with hyperglycemia (principal); F50.20 Bulimia nervosa, unspecified

== ENCOUNTER → 2024-05-01 | Outpatient (REF) | payer MEDICARE, MEDICAID ==
[2024-05-01 14:49] LABS: BASO # 0.1 10^3/uL (0.0-0.2); EOS # 1.4 10^3/uL (0.0-0.5); EOS % 16.4 % (0.0-3.0); HEMATOCRIT 30.4 % (36.0-47.0); HEMOGLOBIN 9.2 g/dl (12.0-15.5); LYMPH # 1.7 10^3/uL (1.5-5.0); LYMPH % 19.1 % (24.0-44.0); MEAN CORPUSCULAR HEMOGLOBIN 29.5 pg (27.0-33.0); MEAN CORPUSCULAR HGB CONC 30.3 g/dl (32.0-36.5); MEAN CORPUSCULAR VOLUME 97.4 fl (80.0-96.0); MONO # 0.5 10^3/uL (0.0-0.8); MONO % 6.2 % (2.0-8.0); PLATELET COUNT, AUTOMATED 460 10^3/uL (150-450); RED BLOOD COUNT 3.12 10^6/uL (4.00-5.40); WHITE BLOOD COUNT 8.8 10^3/uL (4.0-10.0)
[2024-05-01 14:55] LABS: ALBUMIN 3.6 G/DL (3.2-5.2); BILIRUBIN,TOTAL 0.2 MG/DL (0.3-1.2); CREATININE FOR GFR 1.51 MG/DL (0.55-1.30); GLOMERULAR FILTRATION RATE 42.2 (>60); MAGNESIUM LEVEL 2.5 MG/DL (1.8-2.4); PHOSPHORUS LEVEL 2.4 MG/DL (2.5-4.9); POTASSIUM SERUM 5.1 MMOL/L (3.5-5.1)
[2024-05-01 18:07] LABS: APPEARANCE, URINE CLEAR (CLEAR); BACTERIA, URINE AUTO NEGATIVE (NEGATIVE); BILIRUBIN, URINE AUTO NEGATIVE (NEGATIVE); BLOOD, URINE BLOOD NEGATIVE (NEGATIVE); COLOR, URINE STRAW (YELLOW); GLUCOSE, URINE (UA) AUTO 3+ mg/dL (NEGATIVE); KETONE, URINE AUTO NEGATIVE (NEGATIVE); LEUKOCYTE ESTERASE, URINE AUTO NEGATIVE (NEGATIVE); NITRITE, URINE AUTO NEGATIVE (NEGATIVE); PROTEIN, URINE AUTO NEGATIVE (NEGATIVE); RBC, URINE AUTO 0 /HPF (0-3); SPECIFIC GRAVITY URINE AUTO 1.015 (1.002-1.035); SQUAMOUS EPITHELIAL CELL UR AU 1 /HPF (0-6); UROBILINOGEN, URINE AUTO 0.2 mg/dL (0.0-2.0); WBC, URINE AUTO 1 /HPF (0-3)
== END ==
LOC: M SFHCPLAZ 09:18
PROVIDERS: ATTEND Family Medicine
DX: F50.20 Bulimia nervosa, unspecified (principal); Z79.899 Other long term (current) drug therapy

== ENCOUNTER 2024-08-01 16:23 | Inpatient (IN) | payer MEDICARE, MEDICAID ==
[~2024-08-01] VITALS: Ht 152.4 cm; Wt 52.3 kg
[2024-08-01 17:21] LABS: BASO # 0.1 10^3/uL (0.0-0.2); BASO % 0.4 % (0.0-1.0); EOS # 0.4 10^3/uL (0.0-0.5); EOS % 2.5 % (0.0-3.0); HEMATOCRIT 27.2 % (36.0-47.0); LYMPH # 1.5 10^3/uL (1.5-5.0); LYMPH % 8.9 % (24.0-44.0); MEAN CORPUSCULAR HEMOGLOBIN 29.8 pg (27.0-33.0); MEAN CORPUSCULAR HGB CONC 33.1 g/dl (32.0-36.5); MEAN CORPUSCULAR VOLUME 90.1 fl (80.0-96.0); MONO # 1.2 10^3/uL (0.0-0.8); MONO % 6.9 % (2.0-8.0); NEUTROPHILS # 13.7 10^3/uL (1.5-8.5); NEUTROPHILS % 80.6 % (36.0-66.0); PLATELET COUNT, AUTOMATED 652 10^3/uL (150-450); RED BLOOD COUNT 3.02 10^6/uL (4.00-5.40)
[2024-08-01] MEDS: ONDANSETRON 4MG 2ML VIAL IV ONE (17:27)
[2024-08-01] MEDS: NS (Normal Saline) 0.9% 1,000 ML IV ONE (17:27)
[2024-08-01] MEDS: ACETAMINOPHEN *IV* 1,000 MG in IV 1 EA IV ONE (17:27)
[2024-08-01 17:45] LABS: ALBUMIN 2.5 G/DL (3.2-5.2); ALKALINE PHOSPHATASE 139 U/L (35-104); ALT/SGPT 12 U/L (7.0-40); AST/SGOT 10 U/L (<34); BILIRUBIN,DIRECT < 0.1 MG/DL (<0.4); BILIRUBIN,TOTAL 0.2 MG/DL (0.3-1.2); BLOOD UREA NITROGEN 19 MG/DL (9-23); CALCIUM LEVEL 10.3 MG/DL (8.5-10.1); CARBON DIOXIDE LEVEL 35 MMOL/L (20-31); CHLORIDE LEVEL 90 MMOL/L (98-107); CREATININE FOR GFR 1.72 MG/DL (0.55-1.30); GLOMERULAR FILTRATION RATE 39.6 (>60); GLUCOSE, FASTING 285 MG/DL (60-100); POTASSIUM SERUM 4.4 MMOL/L (3.5-5.1); SODIUM LEVEL 133 MMOL/L (136-145); TOTAL PROTEIN 6.9 G/DL (5.7-8.2)
[2024-08-01 17:52] LABS: PROCALCITONIN 0.33 ng/ml
[2024-08-01 18:03] LABS: C REACTIVE PROTEIN QUANTITATIV 18.76 MG/DL (<1.0)
[2024-08-01 19:44] LABS: KETONE, URINE AUTO RFX NEGATIVE (NEGATIVE); NITRITE, URINE AUTO RFX NEGATIVE (NEGATIVE); RBC, URINE AUTO RFX 1 /HPF (0-3); SQUAM EPITHELIAL CELL UR AURFX 2 /HPF (0-6)
[2024-08-01 19:46] LABS: LEUKOCYTE ESTERASE UR AUTO RFX 3+ (NEGATIVE); WBC, URINE AUTO RFX TNTC /HPF (0-3)
[2024-08-01] MEDS: cefTRIAXone SOD 2 GM in DEXTROSE 5% (D5W) ADV/MINI-BAG 50 ML IV ONE (20:15)
[2024-08-01] MEDS: NS (Normal Saline) 0.9% 1,000 ML IV SCH (21:48)
[2024-08-01] MEDS ORDERED: GLUCOSE 4 GM CHEW PO PRN (22:10)
[2024-08-01] MEDS ORDERED: DEXTROSE 50% 50ML SYRINGE IV PRN (22:10)
[2024-08-01] MEDS ORDERED: GLUCAGON INJ 1MG VIAL SC PRN (22:10)
[2024-08-01] MEDS ORDERED: INSU100I24 SC (23:17)
[2024-08-01] MEDS ORDERED: LANTINJ4 SC (23:17)
[2024-08-01] MEDS ORDERED: HOME MED LIST COMPLETE! XX SCH ×2 (23:20→23:35)
[2024-08-01] MEDS ORDERED: HYDR-3363 PO (23:30)
[2024-08-02] MEDS: LanTUS (INSULIN GLARGINE INJ) 1 UNITS/0.01 ML SC ONE (02:03)
[2024-08-02] MEDS: CALCIUM CARBONATE 500 MG CHEW U/D PO ONE (02:03)
[2024-08-02 06:04] LABS: HEMATOCRIT 26.6 % (36.0-47.0); HEMOGLOBIN 8.7 g/dl (12.0-15.5); MEAN CORPUSCULAR HGB CONC 32.7 g/dl (32.0-36.5); MEAN CORPUSCULAR VOLUME 91.7 fl (80.0-96.0); PLATELET COUNT, AUTOMATED 681 10^3/uL (150-450); WHITE BLOOD COUNT 14.1 10^3/uL (4.0-10.0)
[2024-08-02 06:37] LABS: CREATININE FOR GFR 1.72 MG/DL (0.55-1.30); GLOMERULAR FILTRATION RATE 39.6 (>60); POTASSIUM SERUM 4.7 MMOL/L (3.5-5.1)
[2024-08-02] MEDS: FIDAXOMICIN 200 MG TAB (DIFICID) PO SCH (06:38)
[2024-08-02] MEDS: predniSONE 5 MG TAB PO SCH (08:11)
[2024-08-02] MEDS: HEPARIN SOD (PORCINE) 5000UNITS/ML 1ML VIAL/SYRINGE SC SCH (08:11)
[2024-08-02] MEDS: INSULIN LISPRO (NovoLOG) PER UNIT SC SCH ×2 (08:13→20:15)
[2024-08-02 12:29] LABS: PERCENT SATURATION 5.6 % (13.2-45.0)
[2024-08-02] MEDS: SIROLIMUS 1 MG PO SCH (12:31)
[2024-08-02] MEDS: TACROLIMUS 1MG CAP PO SCH (12:33)
[2024-08-02] MEDS: IRON POLYSAC (NIFEREX) 150 MG CAP PO SCH (14:02)
[2024-08-02 14:15] VITALS: BP 121/87; TEMP 98.1; O2SAT 92
[2024-08-02] MEDS: OMEPRAZOLE 20MG CAP PO SCH (17:51)
[2024-08-02] MEDS ORDERED: cefTRIAXone SOD 1 GM in DEXTROSE 5% (D5W) ADV/MINI-BAG 50 ML IV SCH (20:00)
[2024-08-02 20:05] VITALS: BP 119/86; TEMP 98.8; O2SAT 94
[2024-08-02] MEDS: cefTRIAXone SOD 2 GM in DEXTROSE 5% (D5W) ADV/MINI-BAG 50 ML IV SCH (20:10)
[2024-08-02] MEDS: DULoxetine 30MG CAPSULE (CYMBALTA) PO SCH (20:11)
[2024-08-02] MEDS: LanTUS (INSULIN GLARGINE INJ) 1 UNITS/0.01 ML SC SCH (20:22)
[2024-08-03] MEDS: ACETAMINOPHEN 325 MG TAB PO PRN (02:01)
[2024-08-03] MEDS: CALCIUM CARBONATE 500 MG CHEW U/D PO ONE (02:20)
[2024-08-03 03:18] VITALS: BP 117/84; TEMP 98.1; O2SAT 91
[2024-08-03 06:00] LABS: HEMATOCRIT 24.1 % (36.0-47.0); HEMOGLOBIN 7.8 g/dl (12.0-15.5); MEAN CORPUSCULAR HEMOGLOBIN 29.9 pg (27.0-33.0); MEAN CORPUSCULAR HGB CONC 32.4 g/dl (32.0-36.5); MEAN CORPUSCULAR VOLUME 92.3 fl (80.0-96.0); PLATELET COUNT, AUTOMATED 672 10^3/uL (150-450); RED BLOOD COUNT 2.61 10^6/uL (4.00-5.40); WHITE BLOOD COUNT 13.7 10^3/uL (4.0-10.0)
[2024-08-03 06:46] LABS: CALCIUM LEVEL 8.8 MG/DL (8.5-10.1); CREATININE FOR GFR 1.51 MG/DL (0.55-1.30); GLOMERULAR FILTRATION RATE 46.2 (>60); POTASSIUM SERUM 4.3 MMOL/L (3.5-5.1)
[2024-08-03] MEDS ORDERED: SIROLIMUS 1 MG TAB (RAPAMUNE) PO SCH (09:00)
[2024-08-03] MEDS ORDERED: ENTER DRUG NAME HERE (PATIENT'S OWN MED) PO SCH (09:30)
[2024-08-03 12:00] VITALS: BP 116/83; TEMP 98.8; O2SAT 95
[2024-08-03 19:56] VITALS: BP 117/87; TEMP 98.1; O2SAT 95
[2024-08-04 03:40] VITALS: BP 118/87; TEMP 97.9; O2SAT 97
[2024-08-04 06:00] LABS: HEMATOCRIT 25.9 % (36.0-47.0); HEMOGLOBIN 8.2 g/dl (12.0-15.5); MEAN CORPUSCULAR HEMOGLOBIN 29.6 pg (27.0-33.0); MEAN CORPUSCULAR HGB CONC 31.7 g/dl (32.0-36.5); MEAN CORPUSCULAR VOLUME 93.5 fl (80.0-96.0); PLATELET COUNT, AUTOMATED 760 10^3/uL (150-450); RED BLOOD COUNT 2.77 10^6/uL (4.00-5.40); WHITE BLOOD COUNT 11.7 10^3/uL (4.0-10.0)
[2024-08-04 06:30] LABS: CALCIUM LEVEL 9.2 MG/DL (8.5-10.1); CREATININE FOR GFR 1.45 MG/DL (0.55-1.30); GLOMERULAR FILTRATION RATE 48.5 (>60); POTASSIUM SERUM 5.1 MMOL/L (3.5-5.1)
[2024-08-04] MEDS: FERRIC CARBOXYMALTOSE INJ 750 MG, VIAL MATE ADAPTER 1 EACH in NS 100 ML IV ONE (08:50)
[2024-08-04] MEDS: ONDANSETRON 4MG 2ML VIAL IV PRN (11:10)
[2024-08-04 11:48] VITALS: BP 134/83; TEMP 98.4; O2SAT 97
[2024-08-04] MEDS: INSULIN LISPRO (NovoLOG) PER UNIT SC SCH (12:31)
[2024-08-04] MEDS ORDERED: CEFD1CAP9 PO (13:22)
== END 2024-08-04 14:43 | disposition home or self-care (01) | DRG 872 ==
LOC: EDBD 16:23 → M ED 16:23 → M ED INP 22:05 → M MSPAV 08-02 14:14
PROVIDERS: ADMIT Student in an Organized Health Care Education/Training Program; ATTEND Student in an Organized Health Care Education/Training Program
DX: A40.9 Streptococcal sepsis, unspecified (principal); Z94.0 Kidney transplant status; D84.9 Immunodeficiency, unspecified; N13.30 Unspecified hydronephrosis; N17.9 Acute kidney failure, unspecified; N39.0 Urinary tract infection, site not specified; E87.3 Alkalosis; N18.9 Chronic kidney disease, unspecified; K21.9 Gastro-esophageal reflux disease without esophagitis; E10.22 Type 1 diabetes mellitus with diabetic chronic kidney disease; F41.9 Anxiety disorder, unspecified; F32.A Depression, unspecified; M06.9 Rheumatoid arthritis, unspecified; D50.9 Iron deficiency anemia, unspecified; D63.1 Anemia in chronic kidney disease; Z79.4 Long term (current) use of insulin; Z79.52 Long term (current) use of systemic steroids; Z79.899 Other long term (current) drug therapy; Z88.6 Allergy status to analgesic agent; E83.52 Hypercalcemia

== ENCOUNTER → 2024-09-03 | Outpatient (REF) | payer MEDICARE, MEDICAID ==
[~2024-09-03] MED LIST changes: +CEFD1CAP9 PO; +HYDR-3363 PO; +INSU100I24 SC; +LANTINJ4 SC
[2024-09-03 15:46] LABS: APPEARANCE, URINE CLEAR (CLEAR); BACTERIA, URINE AUTO NEGATIVE (NEGATIVE); BILIRUBIN, URINE AUTO NEGATIVE (NEGATIVE); BLOOD, URINE BLOOD NEGATIVE (NEGATIVE); CALCIUM OXALATE CRYSTALS SMALL; COLOR, URINE YELLOW (YELLOW); GLUCOSE, URINE (UA) AUTO 3+ mg/dL (NEGATIVE); KETONE, URINE AUTO NEGATIVE (NEGATIVE); LEUKOCYTE ESTERASE, URINE AUTO NEGATIVE (NEGATIVE); NITRITE, URINE AUTO NEGATIVE (NEGATIVE); PROTEIN, URINE AUTO 2+ mg/dL (NEGATIVE); RBC, URINE AUTO 1 /HPF (0-3); SPECIFIC GRAVITY URINE AUTO 1.018 (1.002-1.035); SQUAMOUS EPITHELIAL CELL UR AU 2 /HPF (0-6); UROBILINOGEN, URINE AUTO 0.2 mg/dL (0.0-2.0); WBC, URINE AUTO 3 /HPF (0-3)
== END ==
LOC: M SFHCPLAZ 14:57
PROVIDERS: ATTEND Family Medicine
DX: N12 Tubulo-interstitial nephritis, not specified as acute or chronic (principal)

== ENCOUNTER → 2024-11-02 | Outpatient (CLI) | payer MEDICARE, MEDICAID ==
[2024-11-02 10:23] LABS: BASO # 0.1 10^3/uL (0.0-0.2); BASO % 0.9 % (0.0-1.0); EOS # 1.0 10^3/uL (0.0-0.5); EOS % 12.0 % (0.0-3.0); LYMPH # 2.9 10^3/uL (1.5-5.0); LYMPH % 35.5 % (24.0-44.0); MONO # 0.6 10^3/uL (0.0-0.8); MONO % 7.4 % (2.0-8.0); NEUTROPHILS # 3.6 10^3/uL (1.5-8.5); NEUTROPHILS % 44.1 % (36.0-66.0); PLATELET COUNT, AUTOMATED 454 10^3/uL (150-450)
[2024-11-02 10:57] LABS: ALT/SGPT 45 U/L (7.0-40); AST/SGOT 31 U/L (<34); CALCIUM LEVEL 11.0 MG/DL (8.5-10.1); CARBON DIOXIDE LEVEL 35 MMOL/L (20-31); CHLORIDE LEVEL 88 MMOL/L (98-107); CHOLESTEROL LEVEL 282 MG/DL (<200); CHOLESTEROL RISK RATIO 5.13 (<5); CREATININE FOR GFR 2.37 MG/DL (0.55-1.30); GLOMERULAR FILTRATION RATE 26.9 (>60); MAGNESIUM LEVEL 2.4 MG/DL (1.8-2.4); NON-HDL-C 227.1 MG/DL; PHOSPHORUS LEVEL 3.7 MG/DL (2.5-4.9); POTASSIUM SERUM 4.4 MMOL/L (3.5-5.1); SODIUM LEVEL 133 MMOL/L (136-145); TRIGLYCERIDES LEVEL 666 MG/DL (<150)
[2024-11-02 11:46] LABS: APPEARANCE, URINE HAZY (CLEAR); BACTERIA, URINE AUTO 1+ (NEGATIVE); BILIRUBIN, URINE AUTO NEGATIVE (NEGATIVE); BLOOD, URINE BLOOD NEGATIVE (NEGATIVE); GLUCOSE, URINE (UA) AUTO 3+ mg/dL (NEGATIVE); KETONE, URINE AUTO NEGATIVE (NEGATIVE); LEUKOCYTE ESTERASE, URINE AUTO 2+ (NEGATIVE); MUCUS, URINE SMALL (NEGATIVE); NITRITE, URINE AUTO NEGATIVE (NEGATIVE); PROTEIN, URINE AUTO 2+ mg/dL (NEGATIVE); RBC, URINE AUTO 4 /HPF (0-3); SPECIFIC GRAVITY URINE AUTO 1.016 (1.002-1.035); SQUAMOUS EPITHELIAL CELL UR AU 18 /HPF (0-6); UROBILINOGEN, URINE AUTO 0.2 mg/dL (0.0-2.0); WBC, URINE AUTO 6 /HPF (0-3)
[2024-11-02 12:05] LABS: TOTAL PROTEIN,RANDOM URINE 83.3 MG/DL (0.0-14.0)
[2024-11-03 13:27] LABS: SIROLIMUS (RAPAMUNE) OTHER LAB 2.5 ng/mL (6.5-15.0)
== END ==
LOC: M LAB 09:23
PROVIDERS: ATTEND Internal Medicine Nephrology
DX: Z94.0 Kidney transplant status (principal); Z79.899 Other long term (current) drug therapy

== ENCOUNTER → 2024-11-04 | Outpatient (REF) | payer MEDICARE, MEDICAID | LOC: M LAB REF 10:39 | PROVIDERS: ATTEND Physician Assistant Medical | DX: R19.7 Diarrhea, unspecified (principal); A04.72 Enterocolitis due to Clostridium difficile, not specified as recurrent ==

== ENCOUNTER → 2024-11-20 | Outpatient (REF) | payer MEDICARE, MEDICAID ==
[2024-11-24 14:57] LABS: HPV APTIMA Detected (Not Detected)
== END ==
LOC: M SFHCPLAZ 17:34
PROVIDERS: ATTEND Family Medicine
DX: Z12.4 Encounter for screening for malignant neoplasm of cervix (principal)
CPT/HCPCS: 87624; G0123